=== PATIENT | female | born 1950 ===

== ENCOUNTER 2020-09-17 09:16 | Emergency (ER) | payer MEDICARE, SELFPAY ==
[2020-09-17 09:24] VITALS: BP 157/83; PULSE 84; RESP 20; TEMP 37.2; O2SAT 96; BMI 26.9
--- NOTE | 2020-09-17 10:06 | US_ITS ---
EXAMINATION: US VENOUS ULTRASOUND WITH DOPPLER LOWER EXTREMITY, RIGHT CLINICAL INFORMATION: Leg pain and swelling COMPARISON: None TECHNIQUE: Ultrasound of the deep veins is performed from the hip to the calf with compression sonography and color and pulse Doppler assessment. Spectral analysis with color-flow imaging is performed. FINDINGS: The right common femoral, greater saphenous proximal is occluded with thrombus with no flow seen. Partial thrombus is visualized in and superficial femoral vein has some flow proximal, mid and distal superficial femoral vein with limited flow. The probably vein there is normal flow seen. The right posterior tibial vein is patent. No Valencia's cyst seen. US/US venous duplex LE RT IMPRESSION: Positive DVT demonstrated in the right lower extremity.
--- NOTE | 2020-09-17 10:07 | XR_ITS ---
EXAMINATION: RIGHT ANKLE AND RIGHT FOOT CLINICAL INFORMATION: Pain. COMPARISON: None TECHNIQUE: 3 views right foot and 2 views right ankle. FINDINGS: RIGHT FOOT: There is mild osteopenia. No visible fracture, dislocation seen. The joint space is maintained normal. No bony erosive changes. RIGHT ANKLE: There is a small calcaneal heel and retrocalcaneal enthesophytes with soft tissue calcification along the posterior achilles tendon. The ankle mortise and subtalar joints are normal. There is mild osteopenia. XR/XR ankle RT min 3V IMPRESSION: Diffuse osteopenia. No visible acute fracture, dislocation or subluxation seen in right ankle or right foot. Small calcaneal heel and retrocalcaneal enthesophytes.
--- NOTE | 2020-09-17 10:07 | XR_ITS ---
EXAMINATION: RIGHT ANKLE AND RIGHT FOOT CLINICAL INFORMATION: Pain. COMPARISON: None TECHNIQUE: 3 views right foot and 2 views right ankle. FINDINGS: RIGHT FOOT: There is mild osteopenia. No visible fracture, dislocation seen. The joint space is maintained normal. No bony erosive changes. RIGHT ANKLE: There is a small calcaneal heel and retrocalcaneal enthesophytes with soft tissue calcification along the posterior achilles tendon. The ankle mortise and subtalar joints are normal. There is mild osteopenia. XR/XR foot RT min 3V IMPRESSION: Diffuse osteopenia. No visible acute fracture, dislocation or subluxation seen in right ankle or right foot. Small calcaneal heel and retrocalcaneal enthesophytes.
--- NOTE | 2020-09-17 10:31 | PC.NURSE ---
pt resting comfortably in the stretcher, pt states that on monday pt's right foot swollen and daily the swelling traveling up the leg, swelling is all the way to inner thigh area, slight redness noticed on the inner right thigh, only tender when touched, good strong pedal pulses. pt denies travel
--- NOTE | 2020-09-17 11:39 | PC.NURSE ---
ultra sound at bedside
[2020-09-17 12:30] LABS: MANUAL DIFF FLAG NO
[2020-09-17 12:33] LABS: Basophils Percent Auto 0.3 % (0-2); Eosinophils Absolute Auto 0.1 X10*3/uL (0.0-0.4); Eosinophils Percent Auto 1.2 % (0-4); Hematocrit 36.1 % (37-47); Hemoglobin 12.1 g/dl (12.0-16.0); Imm Gran Abs Auto 0.05 X10*3/uL (0.00-0.03); Imm Gran Pct Auto 0.5 % (0.0-0.4); Lymphocytes Absolute Auto 2.1 X10*3/uL (1.2-4.9); Lymphocytes Percent Auto 20.1 % (20-40); Mean Corpuscular HGB Conc 33.5 g/dl (31.0-35.0); Mean Corpuscular Hemoglobin 30.6 pg (27.0-33.0); Mean Corpuscular Volume 91.4 fL (80-98); Monocytes Absolute Auto 0.8 X10*3/uL (0.1-1.2); Monocytes Percent Auto 7.2 % (2-11); Neutrophils Absolute Auto 7.5 X10*3/uL (2.0-8.3); Neutrophils Percent Auto 70.7 % (45-73); Platelet Count 274 X10*3/uL (160-400); Red Blood Count 3.95 X10*6/uL (4.20-5.50); Red Cell Distribution Width 11.5 % (11.0-16.0); White Blood Count 10.6 X10*3/uL (4.8-10.8)
[2020-09-17 12:37] LABS: INTERNATIONAL NORM RATIO 1.2 (0.9-1.1); Prothrombin Time 13.8 SEC (10.8-13.0)
[2020-09-17 12:39] LABS: Partial Thromboplastin Time 25.9 SEC (24.1-38.0)
[2020-09-17 12:50] VITALS: BP 150/74; PULSE 81; RESP 18; O2SAT 98
[2020-09-17 13:00] LABS: Anion Gap 16 (12-20); Blood Urea Nitrogen 28 mg/dL (9-16); Calcium 8.9 mg/dL (8.4-10.2); Carbon Dioxide 27 mmol/L (22-29); Chloride 102 mmol/L (96-108); Creatinine Clr Calc Pharmacy 40.5; Estimated Glomerular Filt Rate 39; Glucose Random 119 mg/dL (60-115); Potassium 3.8 mmol/l (3.3-5.1); Sodium 141 mmol/L (135-145)
[2020-09-17 13:37] VITALS: BP 142/62; PULSE 79; RESP 16; O2SAT 97
--- NOTE | 2020-09-17 13:48 | ED.LOWEXIN ---
HPI - Extremity Injury (Lower) General Chief Complaint: Extremity Injury, Lower Stated Complaint: leg swelling Time Seen by Provider: 09/17/20 10:06 History of Present Illness HPI Narrative: Patient complains of swelling that she noted in the right leg that started in the ankle the calf and now has worked its way up to its thigh, she has no pain no fever no chills no difficulty breathing no shortness of breath This is developed over the last 5 days and symptoms are mild, patient has no cancer history, medical problems are high cholesterol high blood pressure and hyperthyroid Related Data Home Medications Medication Instructions Recorded Confirmed alendronate 70 mg tablet 70 mg PO QWEEK 07/28/20 07/28/20 atorvastatin 20 mg tablet 20 mg PO DAILY 07/28/20 07/28/20 ivgkxaaltc-hpyqbhphkmdyj-cjklnzhk 1 tab PO Q6H PRN 07/28/20 07/28/20 50 mg-325 mg-40 mg tablet captopril 25 mg tablet 25 mg PO TID 07/28/20 07/28/20 metoprolol tartrate 100 mg tablet 100 mg PO BID 07/28/20 07/28/20 Previous Rx's Medication Instructions Recorded meclizine 25 mg tablet 25 mg PO TID #90 tab 06/19/20 amoxicillin 875 mg-potassium 1 tab PO BID #20 tab 08/07/20 clavulanate 125 mg tablet amoxicillin 500 mg-potassium 1 tab PO BID #20 tab 08/10/20 clavulanate 125 mg tablet hydrochlorothiazide 25 mg tablet 25 mg PO DAILY #90 tab 08/17/20 apixaban [Eliquis] See Rx Instructions .ROUTE 09/17/20 .COMPLEX 30 Days #60 tab levothyroxine 125 mcg tablet 125 mcg PO DAILY 90 Days #90 tab 09/17/20 raloxifene 60 mg tablet 60 mg PO DAILY #90 tab 09/17/20 Allergies Allergy/AdvReac Type Severity Reaction Status Date / Time morphine [MORPHINE] Allergy Unknown HEART Verified 09/01/20 11:00 STOPS Review of Systems Review of Systems: Positive for right leg swelling Negatives are no fever no chills no dizziness no weakness, no headache no chest pain no shortness of breath no difficulty breathing, no back pain no numbness weakness or paresthesias no skin rash, no redness or swelling to the leg PMFSH Past Medical History Attestation statement: The following information was validated with the patient. [facility] Narrative: Positive for hypertension hyperlipidemia, and hyperthyroid Source: nursing notes reviewed Medical History (Updated 09/17/20 @ 14:09 by JACQUELYN Pantoja) Hyperlipidemia Hypertension Surgical History (System 09/01/20 @ 11:00 by Jodie Rizvi) History of arthroscopy of both knees History of knee replacement procedure of right knee History of lumpectomy of right breast History of tubal ligation Family History Family History (System 09/01/20 @ 11:00 by Jodie Rizvi) Father Past heart attack CAD (coronary artery disease) Mother Diabetes Meniere disease Social History Social History (System 09/01/20 @ 11:00 by Jodie Rizvi) Smoking Status: Never smoker Physical Exam Vital Signs: Vital Signs: Last Vital Signs Temp 98.9 F 09/17/20 09:24 Pulse 79 09/17/20 13:37 Resp 16 09/17/20 13:37 BP 142/62 H 09/17/20 13:37 Pulse Ox 97 09/17/20 13:37 Body Mass Index 26.9 General appearance is no acute distress, comfortable relaxed and cooperative Head is normocephalic it is traumatic The neck is supple The chest wall is nontender, the chest is clear to auscultation bilaterally with symmetric equal breath sounds, no pain with deep breath, heart is rate and rhythm regular no murmur Abdomen soft nontender Extremities the right leg has some soft tissue swelling to ankle lower leg and upper leg there is no redness no warmth no rash no break in the skin no tenderness no wound, the foot is neurovascular intact distal Skin no rashes Neuro no focal deficit Course Course Course Narrative: Patient remains comfortable throughout visit without any other complaints and went for ultrasound which did show a large DVT in the right leg and patient was started on Eliquis and given a coupon for the 1st 30 days, she understood all this and risks of blood thinners MDM - Extremity Injury (Lower) Lab Data Attestation: I reviewed the patient's lab results. Result diagrams: 09/17/20 12:25 09/17/20 12:25 Labs: Lab Results 09/17/20 09/17/20 09/17/20 Range/Units 12:25 12:25 12:25 WBC 10.6 (4.8-10.8) X10*3/uL RBC 3.95 L (4.20-5.50) X10*6/uL Hgb 12.1 (12.0-16.0) g/dl Hct 36.1 L (37-47) % MCV 91.4 (80-98) fL MCH 30.6 (27.0-33.0) pg MCHC 33.5 (31.0-35.0) g/dl RDW 11.5 (11.0-16.0) % Plt Count 274 (160-400) X10*3/uL MPV 10.0 (9.4-12.3) fL Immature Gran % (Auto) 0.5 H (0.0-0.4) % Neut % (Auto) 70.7 (45-73) % Lymph % (Auto) 20.1 (20-40) % [place] % (Auto) 7.2 (2-11) % Eos % (Auto) 1.2 (0-4) % Baso % (Auto) 0.3 (0-2) % Lymph # (Auto) 2.1 (1.2-4.9) X10*3/uL [place] # (Auto) 0.8 (0.1-1.2) X10*3/uL Eos # (Auto) 0.1 (0.0-0.4) X10*3/uL Baso # (Auto) 0.0 (0.0-0.2) X10*3/uL Abs Immat Gran (auto) 0.05 H (0.00-0.03) X10*3/uL Absolute Neuts (auto) 7.5 (2.0-8.3) X10*3/uL Absolute Nucleated RBC 0.000 (0.0-0.012) X10*3/uL Nucleated RBC % (auto) 0.0 (0.0-0.2) /100WBC PT 13.8 H (10.8-13.0) SEC INR 1.2 H (0.9-1.1) APTT 25.9 (24.1-38.0) SEC Sodium 141 (135-145) mmol/L Potassium 3.8 (3.3-5.1) mmol/l Chloride 102 (96-108) mmol/L Carbon Dioxide 27 (22-29) mmol/L Anion Gap 16 (12-20) BUN 28 H (9-16) mg/dL Creatinine 1.35 (0.5-1.4) mg/dL Estim Creat Clear Calc 40.5 Estimated GFR 39 Random Glucose 119 H (60-115) mg/dL Calcium 8.9 (8.4-10.2) mg/dL Imaging Data Venous US: Radiologist's impression: TECHNIQUE: Ultrasound of the deep veins is performed from the hip to the calf with compression sonography and color and pulse Doppler assessment. Spectral analysis with color-flow imaging is performed. FINDINGS: The right common femoral, greater saphenous proximal is occluded with thrombus with no flow seen. Partial thrombus is visualized in and superficial femoral vein has some flow proximal, mid and distal superficial femoral vein with limited flow. The probably vein there is normal flow seen. The right posterior tibial vein is patent. No Valencia's cyst seen. US/US venous duplex LE RT IMPRESSION: Positive DVT demonstrated in the right lower extremity. Dictated By:NANY TURCIOS MDSigned By:<Electronically signed by NANY TURCIOS MD in Discharge Plan Discharge Clinical Impression: DVT (deep venous thrombosis) Qualifiers: DVT location: lower extremity Affected thrombotic vein of extremity: unspecified lower extremity proximal vein Chronicity: acute Laterality: right Qualified Code(s): I82.4Y1 - Acute embolism and thrombosis of unspecified deep veins of right proximal lower extremity Patient Disposition: Home, Self-Care Additional Instructions: Use the coupon to fill Eliquis blood thinner at the pharmacy, you will need a 2nd dose today Follow with primary doctor within 1 week Return to ER any time for difficulty breathing, shortness of breath, chest pain, bleeding or bruising, or any worse condition or any concerns Prescriptions: New Eliquis 5 mg tablet See Rx Instructions .ROUTE .COMPLEX 30 Days Qty: 60 RF: 0 No Action meclizine 25 mg tablet 25 mg PO TID Qty: 90 RF: 8 amoxicillin-pot clavulanate 875-125 mg tablet 1 tab PO BID Qty: 20 RF: 0 amoxicillin-pot clavulanate [Augmentin] 500-125 mg tablet 1 tab PO BID Qty: 20 RF: 0 hydrochlorothiazide 25 mg tablet 25 mg PO DAILY Qty: 90 RF: 8 raloxifene 60 mg tablet 60 mg PO DAILY Qty: 90 RF: 8 levothyroxine 125 mcg tablet 125 mcg PO DAILY 90 Days Qty: 90 RF: 8 atorvastatin 20 mg tablet 20 mg PO DAILY RF: 0 metoprolol tartrate 100 mg tablet 100 mg PO BID RF: 0 captopril 25 mg tablet 25 mg PO TID RF: 0 alendronate 70 mg tablet 70 mg PO QWEEK RF: 0 slhxtpwale-ekovmyggbvlbz-obnn 50-325-40 mg tablet 1 tab PO Q6H PRNRF: 0 Interventions: ED Discharge Assessment Last Done: 09/17/20 14:28 Discharge Date/Time: 09/17/20 14:28
[2020-09-17] MEDS: Apixaban 5 MG TABLET PO ×2 (14:08)
== END 2020-09-17 14:28 | disposition home or self-care (01) ==
PROVIDERS: Physician Assistant Medical; Emergency Provider Emergency Medicine Emergency Medical Services; PCP Internal Medicine
DX: I82.4Y1 Acute embolism and thrombosis of unspecified deep veins of right proximal lower extremity (principal); R60.0 Localized edema; I10 Essential (primary) hypertension; Z79.899 Other long term (current) drug therapy
CPT/HCPCS: 36415; 73610; 73630; 80048; 85025; 85610; 85730; 93971; 99284

== ENCOUNTER 2020-11-09 07:39 | Outpatient (REF) | payer MEDICARE, SELFPAY ==
--- NOTE | ~2020-11-09 | MM_ITS ---
EXAMINATION: MM SCREENING DIGITAL BREAST TOMOSYNTHESIS, BILATERAL CLINICAL INFORMATION: Screening. Asymptomatic. The lifetime risk of breast cancer based on the Tyrer-Cuzick Model is 4%. COMPARISON: Mammography: 11/04/2019, 04/30/2019, 10/25/2018, 10/18/2017 TECHNIQUE: Digital breast tomosynthesis is performed in both the craniocaudal and mediolateral oblique views along with computer-aided detection (CAD). Synthesized 2D images are generated from the tomosynthesis. FINDINGS: There are scattered areas of fibroglandular density (ACR BI-RADS breast composition Category b). There are no significant masses, abnormal calcifications, or other abnormalities. There is stable smooth nodule central upper outer right breast mid depth and smaller nodule central outer left breast similar to prior exams. Remote trauma related regional benign round and rim calcifications posterior upper outer right breast are again noted. No significant findings. MM/MM tomosynthesis screening BI IMPRESSION: No mammographic evidence of malignancy. ASSESSMENT: BI-RADS 2: Benign RECOMMENDATION: Routine annual mammography screening. This patient's information was entered into a reminder system with a target due date for their next mammogram.
== END 2020-11-09 07:40 | disposition home or self-care (01) ==
LOC: HO.MAMMO 07:39
PROVIDERS: Visit Provider Internal Medicine
DX: Z12.31 Encounter for screening mammogram for malignant neoplasm of breast (principal)
CPT/HCPCS: 77063; 77067

== ENCOUNTER 2021-01-19 14:45 | Emergency (ER) | payer MEDICARE, SELFPAY ==
--- NOTE | ~2021-01-19 | CT_ITS ---
EXAMINATION: CT ABDOMEN AND PELVIS WITHOUT CONTRAST CLINICAL INFORMATION: Left-sided abdominal pain. Question diverticulosis. COMPARISON: None TECHNIQUE: Multidetector volumetric imaging was performed from the superior aspect of the liver through the pubic symphysis. Sagittal and coronal reformatted images were obtained on the technologist's workstation. This CT examination was performed using dose optimization techniques as appropriate, variously including the following: *Automated exposure control *Adjustment of mA and/or kV according to patient size (this includes techniques or standardized protocols for targeted exams where dose is matched to indication/reason for exam; i.e. extremities or head) *Use of iterative reconstruction technique DLP: 723 mGy-cm FINDINGS: Visualized lung bases are well aerated. The liver is normal in size but demonstrates diffusely decreased attenuation. The gallbladder is normal in appearance. Mild fatty atrophy of the pancreas. The spleen and adrenal glands are unremarkable. The right kidney is normal in size. No right-sided renal calculi or right-sided hydronephrosis. The left kidney is severely atrophic. The stomach is decompressed. Normal caliber loops of small and large bowel. Moderate diffuse colonic diverticulosis. There is a short segment area of pericolonic stranding adjacent to the distal transverse colon which is most suggestive of active diverticulitis. There is no complicating abscess. Nonaneurysmal abdominal aorta. No retroperitoneal lymphadenopathy. The bladder is normal in appearance. Unremarkable CT appearance of the uterus. No inguinal lymphadenopathy. Diffuse osteopenia. Mild degenerative changes of the spine. Severe degenerative changes of the right hip. CT/CT abdomen pelvis wo con IMPRESSION: 1. Mild colonic diverticulitis of the distal transverse colon. No complicating abscess. 2. Diffusely decreased liver attenuation suggesting hepatic steatosis. Correlation with liver enzymes recommended. 3. Severely atrophic left kidney. 4. Severe degenerative changes of the right hip.
[2021-01-19 15:28] VITALS: BP 157/85; PULSE 87; RESP 16; TEMP 37.7; O2SAT 96; BMI 27.6
[2021-01-19 16:12] LABS: MANUAL DIFF FLAG NO
[2021-01-19 16:13] LABS: Basophils Percent Auto 0.1 % (0-2); Eosinophils Absolute Auto 0.1 X10*3/uL (0.0-0.4); Eosinophils Percent Auto 1.2 % (0-4); Hematocrit 38.2 % (37-47); Imm Gran Abs Auto 0.02 X10*3/uL (0.00-0.03); Imm Gran Pct Auto 0.2 % (0.0-0.4); Lymphocytes Absolute Auto 1.1 X10*3/uL (1.2-4.9); Lymphocytes Percent Auto 11.9 % (20-40); Mean Corpuscular Hemoglobin 31.3 pg (27.0-33.0); Mean Corpuscular Volume 91.8 fL (80-98); Mean Platelet Volume 10.3 fL (9.4-12.3); Monocytes Absolute Auto 0.7 X10*3/uL (0.1-1.2); Monocytes Percent Auto 7.4 % (2-11); Neutrophils Percent Auto 79.2 % (45-73); Platelet Count 213 X10*3/uL (160-400); Red Blood Count 4.16 X10*6/uL (4.20-5.50); White Blood Count 8.9 X10*3/uL (4.8-10.8)
[2021-01-19 16:34] LABS: Anion Gap 15 (12-20); Blood Urea Nitrogen 26 mg/dL (9-16); Calcium 9.3 mg/dL (8.4-10.2); Carbon Dioxide 25 mmol/L (22-29); Chloride 102 mmol/L (96-108); Creatinine Clr Calc Pharmacy 41.1; Estimated Glomerular Filt Rate 40; Glucose Random 122 mg/dL (60-115); Potassium 4.6 mmol/L (3.3-5.1); Sodium 137 mmol/L (135-145)
--- NOTE | 2021-01-19 17:36 | ED.ABDPAIN ---
HPI - Abdominal Pain General Chief Complaint: Abdominal Pain Stated Complaint: flank pain Time Seen by Provider: 01/19/21 17:35 Source: patient Mode of arrival: ambulatory Limitations: no limitations History of Present Illness HPI narrative: Patient with no significant abdominal complaints in the past complaining of left lower abdominal pain for last 4 days getting worse does not feel hungry did not eat for last 12 hours nauseated no blood in the stool no fever no chills no abdominal distension feels constipated Related Data Home Medications Medication Instructions Recorded Confirmed bjvudepxas-npmclppvlfuxj-tkclvstz 1 tab PO Q6H PRN 07/28/20 07/28/20 50 mg-325 mg-40 mg tablet captopril 25 mg tablet 25 mg PO TID 07/28/20 07/28/20 metoprolol tartrate 100 mg tablet 100 mg PO BID 07/28/20 07/28/20 Previous Rx's Medication Instructions Recorded meclizine 25 mg tablet 25 mg PO TID #90 tab 06/19/20 amoxicillin 875 mg-potassium 1 tab PO BID #20 tab 08/07/20 clavulanate 125 mg tablet amoxicillin 500 mg-potassium 1 tab PO BID #20 tab 08/10/20 clavulanate 125 mg tablet hydrochlorothiazide 25 mg tablet 25 mg PO DAILY #90 tab 08/17/20 levothyroxine 125 mcg tablet 125 mcg PO .COMPLEX #135 cap 09/20/20 raloxifene 60 mg tablet 60 mg PO DAILY #90 cap 09/20/20 apixaban 5 mg tablet 5 mg PO DAILY 30 Days #30 tab 10/19/20 atorvastatin 20 mg tablet 20 mg PO DAILY #90 cap 10/31/20 alendronate 70 mg tablet 70 mg PO QWEEK #14 tab 11/25/20 amoxicillin-pot clavulanate 1 tab PO BID #20 tab 01/19/21 [Augmentin] dicyclomine 20 mg PO QID PRN #20 tab 01/19/21 Allergies Allergy/AdvReac Type Severity Reaction Status Date / Time morphine [MORPHINE] Allergy Unknown HEART Verified 10/21/20 09:36 STOPS Review of Systems Review of Systems Constitutional : No Weight loss, No Fever, No Chills ENT/Mouth : No sore throat, No Rhinorrhea Eyes: No Eye Pain, No Swelling Cardiovascular : No Chest Pain, no palpitations Respiratory : No Cough, No Sputum, no shortness of breath Gastrointestinal : + Nausea, No Vomiting, No Diarrhea, ++ abdominal Pain, no black stools Genitourinary : No Dysuria, No Urinary Frequency Musculoskeletal : No joint pain, No Myalgias, No Joint Swelling Skin : No Skin Lesions, No rash Neuro : No Weakness, No Numbness, No Dizziness, No Headache Psych : No Anxiety/Panic, No Depression Heme/Lymph: No Bruising, No Lymphadenopathy Endocrine : No Polyuria, No Polydipsia All other systems reviewed and are negative Physical Exam Vital Signs: Vital Signs: Last Vital Signs Temp 99.3 F 01/19/21 22:08 Pulse 76 01/19/21 22:08 Resp 16 01/19/21 22:08 BP 148/40 H 01/19/21 22:08 Pulse Ox 95 01/19/21 22:08 Body Mass Index 27.6 Appearance: Alert. Oriented X3. No acute distress. Eyes: PERRLA, No Nystagmus ENT: Pharynx normal. Oral Mucosa moist Neck: Normal inspection. Neck supple. CVS: Normal heart rate and rhythm. Pulses normal. Respiratory: No respiratory distress. Equal air entry bilateral, no wheezing/rales/rhonchi Abdomen: Soft and tenderness in the left lower quadrant with guarding no rebound tenderness Bowel sounds are present, no mass palpable, no CVA tenderness Skin: Skin warm and dry. Normal skin color. Normal skin turgor. Extremities: No lower extremity edema. No calf tenderness Neuro: Oriented X 3. No motor deficit. No sensory deficit.No cerebellar signs , cranial nerves II-XII intact MDM - Abdominal Pain MDM Narrative Medical decision making narrative: Patient with left lower quadrant tenderness normal WBC count CT scan showed small part of distal transverse colon with diverticulitis no fluid collection. Patient cannot take any pain medication and received IV Zosyn in the ER will discharge patient home on Augmentin advised to come back to the ER if pain gets worse fever nausea vomiting Medical Records Attestation: I reviewed the patient's medical records. Lab Data Attestation: I reviewed the patient's lab results. Result diagrams: 01/19/21 16:06 01/19/21 16:06 Labs: Lab Results 01/19/21 01/19/21 Range/Units 16:06 16:06 WBC 8.9 (4.8-10.8) X10*3/uL RBC 4.16 L (4.20-5.50) X10*6/uL Hgb 13.0 (12.0-16.0) g/dl Hct 38.2 (37-47) % MCV 91.8 (80-98) fL MCH 31.3 (27.0-33.0) pg MCHC 34.0 (31.0-35.0) g/dl RDW 12.0 (11.0-16.0) % Plt Count 213 (160-400) X10*3/uL MPV 10.3 (9.4-12.3) fL Immature Gran % (Auto) 0.2 (0.0-0.4) % Neut % (Auto) 79.2 H (45-73) % Lymph % (Auto) 11.9 L (20-40) % [place] % (Auto) 7.4 (2-11) % Eos % (Auto) 1.2 (0-4) % Baso % (Auto) 0.1 (0-2) % Lymph # (Auto) 1.1 L (1.2-4.9) X10*3/uL [place] # (Auto) 0.7 (0.1-1.2) X10*3/uL Eos # (Auto) 0.1 (0.0-0.4) X10*3/uL Baso # (Auto) 0.0 (0.0-0.2) X10*3/uL Abs Immat Gran (auto) 0.02 (0.00-0.03) X10*3/uL Absolute Neuts (auto) 7.0 (2.0-8.3) X10*3/uL Absolute Nucleated RBC 0.000 (0.0-0.012) X10*3/uL Nucleated RBC % (auto) 0.0 (0.0-0.2) /100WBC Sodium 137 (135-145) mmol/L Potassium 4.6 (3.3-5.1) mmol/L Chloride 102 (96-108) mmol/L Carbon Dioxide 25 (22-29) mmol/L Anion Gap 15 (12-20) BUN 26 H (9-16) mg/dL Creatinine 1.30 (0.5-1.4) mg/dL Estim Creat Clear Calc 41.1 Estimated GFR 40 Random Glucose 122 H (60-115) mg/dL Calcium 9.3 (8.4-10.2) mg/dL Imaging Data CT scan - abdomen: Radiologist's impression: CT/CT abdomen pelvis wo con IMPRESSION: 1. Mild colonic diverticulitis of the distal transverse colon. No complicating abscess. 2. Diffusely decreased liver attenuation suggesting hepatic steatosis. Correlation with liver enzymes recommended. 3. Severely atrophic left kidney. 4. Severe degenerative changes of the right hip. Discharge Plan Discharge Clinical Impression: Diverticulitis Patient Disposition: Home, Self-Care Instructions: Diverticulitis (ED) Additional Instructions: Clear liquids advanced as advised Take antibiotic as prescribed Tylenol for pain Report to ER if high fever increased abdominal pain, vomiting Prescriptions: New amoxicillin-pot clavulanate [Augmentin] 875-125 mg tablet 1 tab PO BID Qty: 20 RF: 0 dicyclomine 20 mg tablet 20 mg PO QID PRN (Reason: abdominal pain) Qty: 20 RF: 0 No Action meclizine 25 mg tablet 25 mg PO TID Qty: 90 RF: 8 amoxicillin-pot clavulanate 875-125 mg tablet 1 tab PO BID Qty: 20 RF: 0 amoxicillin-pot clavulanate [Augmentin] 500-125 mg tablet 1 tab PO BID Qty: 20 RF: 0 hydrochlorothiazide 25 mg tablet 25 mg PO DAILY Qty: 90 RF: 8 levothyroxine 125 mcg tablet 125 mcg PO .COMPLEX Qty: 135 RF: 1 raloxifene 60 mg tablet 60 mg PO DAILY Qty: 90 RF: 1 Eliquis 5 mg tablet 5 mg PO DAILY 30 Days Qty: 30 RF: 8 atorvastatin 20 mg tablet 20 mg PO DAILY Qty: 90 RF: 3 alendronate 70 mg tablet 70 mg PO QWEEK Qty: 14 RF: 8 metoprolol tartrate 100 mg tablet 100 mg PO BID RF: 0 captopril 25 mg tablet 25 mg PO TID RF: 0 dngunygqhl-meqsbtzecqeyq-nprt 50-325-40 mg tablet 1 tab PO Q6H PRNRF: 0 Interventions: ED Discharge Assessment Last Done: 01/19/21 22:36 Discharge Date/Time: 01/19/21 22:36 [facility] Past Medical History Medical History Hyperlipidemia Hypertension Surgical History History of arthroscopy of both knees History of knee replacement procedure of right knee History of lumpectomy of right breast History of tubal ligation Family History Family History Father Past heart attack CAD (coronary artery disease) Mother Diabetes Meniere disease Son No problems noted. Social History Social History Alcohol intake: never Smoking Status: Never smoker Advance Directives: No Advance Directives Information Provided: No
[2021-01-19 17:51] VITALS: BP 143/65; PULSE 74; RESP 18; TEMP 37.9; O2SAT 100
[2021-01-19] MEDS: 0.9 % Sodium Chloride 1,000 ML 999 ML IVCONT (18:54)
[2021-01-19] MEDS: Acetaminophen 325 MG TABLET 650 MG PO (19:30)
[2021-01-19 19:32] VITALS: BP 156/59; PULSE 82; RESP 18
[2021-01-19 20:32] VITALS: BP 160/64; PULSE 89; RESP 16; TEMP 37.3; O2SAT 97
[2021-01-19 21:53] VITALS: BP 153/71; PULSE 69; RESP 16; TEMP 37.1
[2021-01-19] MEDS: Piperacillin Sodium/Tazobactam 3.375 GM in 0.9 % Sodium Chloride 50 ML IV (21:56)
[2021-01-19 22:08] VITALS: BP 148/40; PULSE 76; RESP 16; TEMP 37.4; O2SAT 95
== END 2021-01-19 22:36 | disposition home or self-care (01) ==
PROVIDERS: Emergency Provider Internal Medicine; PCP Internal Medicine
DX: K57.92 Diverticulitis of intestine, part unspecified, without perforation or abscess without bleeding (principal); R10.32 Left lower quadrant pain; I10 Essential (primary) hypertension; E78.5 Hyperlipidemia, unspecified; Z86.718 Personal history of other venous thrombosis and embolism
CPT/HCPCS: 36415; 74176; 80048; 85025; 96361; 96365; 96375; 99284; J2543

== ENCOUNTER → 2021-02-09 08:57 | Outpatient (BNVA) | payer MEDICARE, SELFPAY | PROVIDERS: PCP Internal Medicine; Referring Provider Internal Medicine; Visit Provider Physician Assistant ==

== ENCOUNTER 2021-02-09 09:54 | Outpatient (REF) | payer MEDICARE, SELFPAY ==
[2021-02-09 13:49] LABS: MANUAL DIFF FLAG NO
[2021-02-09 14:11] LABS: Basophils Percent Auto 0.5 % (0-2); Eosinophils Absolute Auto 0.2 X10*3/uL (0.0-0.4); Hematocrit 39.4 % (37-47); Hemoglobin 12.9 g/dl (12.0-16.0); Imm Gran Abs Auto 0.03 X10*3/uL (0.00-0.03); Imm Gran Pct Auto 0.4 % (0.0-0.4); Lymphocytes Percent Auto 24.3 % (20-40); Mean Corpuscular HGB Conc 32.7 g/dl (31.0-35.0); Mean Corpuscular Hemoglobin 30.4 pg (27.0-33.0); Mean Corpuscular Volume 92.7 fL (80-98); Mean Platelet Volume 11.7 fL (9.4-12.3); Monocytes Absolute Auto 0.5 X10*3/uL (0.1-1.2); Monocytes Percent Auto 6.3 % (2-11); Neutrophils Absolute Auto 5.6 X10*3/uL (2.0-8.3); Neutrophils Percent Auto 66.5 % (45-73); Platelet Count 287 X10*3/uL (160-400); Red Blood Count 4.25 X10*6/uL (4.20-5.50); White Blood Count 8.4 X10*3/uL (4.8-10.8)
[2021-02-09 14:20] LABS: Alanine Aminotransferase 22 U/L (0-31); Albumin Level 4.1 g/dL (3.5-5.0); Alkaline Phosphatase 60 U/L (39-117); Anion Gap 16 (12-20); Aspartate Amino Transferase 24 U/L (5-31); Bilirubin Total 0.5 mg/dL (0.0-1.0); Blood Urea Nitrogen 25 mg/dL (9-16); Calcium 10.2 mg/dL (8.4-10.2); Carbon Dioxide 28 mmol/L (22-29); Chloride 105 mmol/L (96-108); Cholesterol 164 mg/dL; Estimated Glomerular Filt Rate 38; Glucose Random 121 mg/dL (60-115); HDL Cholesterol 32 mg/dL; LDL Cholesterol Calculated 89 mg/dl; Potassium 4.9 mmol/L (3.3-5.1); Sodium 144 mmol/L (135-145); Total Protein 7.4 g/dL (6.5-8.0); Triglycerides 215 mg/dL
[2021-02-09 14:25] LABS: Estimated Average Glucose 126 mg/dL
[2021-02-10 07:35] LABS: HBS Num1 0.43 mIU/mL (0-7.99); Hepatitis A Antibody IgM 0.15 Index (0-0.79); Hepatitis B Core Antibody Nonreactive (Nonreactive); ~Hepatitis A Antibody IgM Nonreactive (Nonreactive); ~Hepatitis B Surface Antibody NONREACTIVE (Nonreactive); ~Hepatitis C Antibody Nonreactive (Nonreactive)
[2021-02-10 07:46] LABS: HBsAGNum1 0.26 S/CO (0.00-0.99); Hepatitis B Surface Antigen Negative (Negative)
== END 2021-02-09 09:55 | disposition home or self-care (01) ==
LOC: HO.WFDLDS 09:54
PROVIDERS: Visit Provider Physician Assistant
DX: R10.11 Right upper quadrant pain (principal); R74.01 Elevation of levels of liver transaminase levels; R79.89 Other specified abnormal findings of blood chemistry; K57.92 Diverticulitis of intestine, part unspecified, without perforation or abscess without bleeding; I82.409 Acute embolism and thrombosis of unspecified deep veins of unspecified lower extremity; K76.0 Fatty (change of) liver, not elsewhere classified
CPT/HCPCS: 36415; 80053; 80061; 83036; 85025; 86704; 86706; 86709; 86803; 87340; 99212

== ENCOUNTER 2021-03-24 07:18 | Day surgery (SDC) | payer MEDICARE, SELFPAY ==
[2021-03-16 13:52] VITALS: BMI 25.3
--- NOTE | 2021-03-23 10:58 | P.CONAN_ITS ---
Documented by User: Marine Marita 03/23/21 11:00 HPI - Anesthesia Eval Consult details Narrative: 70yo F for Colonoscopy Eliquis for LLE DVT 08/2020 PMFSH Active Problems Active Problems: All Active Problems (Updated 03/16/21 @ 13:58 by Nimco Troy) DVT (deep venous thrombosis) (Acute) Diverticulitis (Acute) NAFLD (nonalcoholic fatty liver disease) (Acute) Hyperlipidemia (Acute) Hypertension (Acute) Past Medical History Medical History (Updated 03/16/21 @ 13:58 by Nimco Troy) COVID-19 vaccine series completed Fatty liver History of diverticulitis Hx of deep venous thrombosis Hyperlipidemia Hypertension Hypothyroidism Menieres disease On anticoagulant therapy On beta danni at home Osteoarthritis Family History Family History Father Past heart attack CAD (coronary artery disease) Mother Diabetes Meniere disease Son No problems noted. Surgical History Surgical History (Updated 03/16/21 @ 13:35 by Nimco Troy) History of arthroscopy of both knees History of knee replacement procedure of right knee History of lumpectomy of right breast History of tubal ligation Social History Social History Household Members: Spouse Are you a primary health care / medical job titles to a significant other at home: No Do you presently have visiting nurse or other home services: No Alcohol intake: never Patient Tobacco Use Status: Never used Tobacco Second Hand Smoke Exposure: No Use of substances other than those prescribed or required for medical reasons: No Have you been hit, kicked, punched, or otherwise hurt by someone within the past year? If so, by whom?: No Are you DNR?: No Advance Directives: No Advance Directives Information Provided: No Advance Directives on File: No Recently lost weight without trying: Yes Eating poorly because of decreased appetite: No Nutrition Risks: No Nutritional Risk Patient : No Current occupational status: retired Meds Allergies Allergy/AdvReac Type Severity Reaction Status Date / Time morphine [MORPHINE] Allergy Unknown HEART Verified 03/16/21 13:36 STOPS Home Medications Medication Instructions Recorded Confirmed Last Taken Type captopril 25 mg tablet 25 mg PO TID 07/28/20 03/16/21 Unknown History metoprolol tartrate 100 mg tablet 100 mg PO BID 07/28/20 03/16/21 Unknown History Exam Exam Date and Time: March 23, 2021 1058 Height,Weight and Vital Signs: Height 5 ft 6.5 in Weight 72.235 kg Pertinent Lab Results Pertinent Lab Results: Laboratory Tests 02/09/21 02/09/21 10:00 10:00 WBC 8.4 Hgb 12.9 Hct 39.4 Plt Count 287 D Sodium 144 Potassium 4.9 Chloride 105 Carbon Dioxide 28 BUN 25 H Creatinine 1.37 Assessment and Plan Assessment Anesthesia Assessment: Chart Reviewed Documented by User: Lizbet James 03/24/21 08:43 [facility] Past Medical History Medical History (Updated 03/16/21 @ 13:58 by Nimco Troy) COVID-19 vaccine series completed Fatty liver History of diverticulitis Hx of deep venous thrombosis Hyperlipidemia Hypertension Hypothyroidism Menieres disease On anticoagulant therapy On beta danni at home Osteoarthritis Family History Family History Father Past heart attack CAD (coronary artery disease) Mother Diabetes Meniere disease Son No problems noted. Surgical History Surgical History (Updated 03/16/21 @ 13:35 by Nimco Troy) History of arthroscopy of both knees History of knee replacement procedure of right knee History of lumpectomy of right breast History of tubal ligation Social History Social History Household Members: Spouse Are you a primary health care / medical job titles to a significant other at home: No Do you presently have visiting nurse or other home services: No Alcohol intake: never Patient Tobacco Use Status: Never used Tobacco Second Hand Smoke Exposure: No Use of substances other than those prescribed or required for medical reasons: No Have you been hit, kicked, punched, or otherwise hurt by someone within the past year? If so, by whom?: No Are you DNR?: No Advance Directives: No Advance Directives Information Provided: No Advance Directives on File: No Recently lost weight without trying: Yes Eating poorly because of decreased appetite: No Nutrition Risks: No Nutritional Risk Patient : No Current occupational status: retired Meds Allergies Allergy/AdvReac Type Severity Reaction Status Date / Time morphine [MORPHINE] Allergy Unknown HEART Verified 03/16/21 13:36 STOPS Home Medications Medication Instructions Recorded Confirmed Last Taken Type captopril 25 mg tablet 25 mg PO TID 07/28/20 03/16/21 Unknown History metoprolol tartrate 100 mg tablet 100 mg PO BID 07/28/20 03/16/21 Unknown History Exam Airway Mallampati Class: II TM Dist: >3cm Neck ROM: Full Assessment and Plan Final Anesthetic Review NPO: Yes ASA Class: III Final Preanesthetic Review: No Changes in Pt Med Stat, Meds/Allgs Chart Reviewed and Consent Obtained/Reviewed Patient Risk: Intermediate Procedure Risk: Intermediate Anesthetic Plan Anesthetic Plan: MAC: Disposition: Standard PACU
--- NOTE | 2021-03-24 07:30 | MHC.SHP ---
Pre-Procedural Eval Section A Date of Service: 03/24/21 Section B Chief Complaint: diverticulitis Relevant Family History (Specify if Yes): No Relevant Social History: None Present Medications: see Short Stay Collaborative assessment Medical History: Significant History (atty liver History of diverticulitis Hx of deep venous thrombosis Hyperlipidemia Hypertension Hypothyroidism Menieres disease On anticoagulant therapy On beta danni at home Osteoarthritis) History of Previous Operations: Relevant previous surgery/procedure and date(s) (istory of arthroscopy of both knees History of knee replacement procedure of right knee History of lumpectomy of right breast History of tubal ligation) Allergies: Allergies Allergy/AdvReac Type Severity Reaction Status Date / Time morphine [MORPHINE] Allergy Unknown HEART Verified 03/16/21 13:36 STOPS Review of Systems Review of Systems Comment: Negative Exam Exam Comment: EXAM: GENERAL: The patient is well developed and nontoxic. VITAL SIGNS:see workflow HEENT: Nonicteric sclerae, PERRLA, EOMI. Oropharynx clear. Moist mucous membranes. Conjunctivae appear well perfused. No thyroid mass. CHEST: Chest wall is nontender. HEART: Regular rate and rhythm without murmurs. LUNGS: Clear to auscultation bilaterally. ABDOMEN: Soft, positive bowel sounds, nontender, no organomegaly.no flank tenderness SKIN: No rash, no excessive bruising, petechiae, or purpura. NEUROLOGIC: Cranial nerves II-XII intact without motor/sensory deficit. Plan I have reviewed the history and physical and performed a pertinent physical examination on my patient. No changes have occurred unless specified.
[2021-03-24 07:52] VITALS: BP 165/67; PULSE 69; RESP 17; TEMP 37.2; O2SAT 98; BMI 25.2
[2021-03-24] MEDS: Lactated Ringers 1,000 ML 100 ML IVCONT (08:12)
--- NOTE | 2021-03-24 09:22 | P.BOP_ITS ---
Brief Operative Note Date of Service: 03/24/21 Pre-op diagnosis: hx of diverticulitis, first time screening colonoscopy Post-op diagnosis: same Procedure: see op note Surgeon: Diony Zarate MD Anesthesia: MAC Was an Looper Operator used for this Procedure?: No Estimated blood loss (mL): 0 Condition: stable Disposition: PACU
--- NOTE | 2021-03-24 09:23 | W.PM.OPN ---
Operative Note Operative Note Date of Service: 03/24/21 Narrative: Operative Information Procedure Description: Colonoscopy COLONOSCOPY Instrument: Olympus variable stiffness pediatric scope 190L Colonoscopy Monitoring: Vital signs and clinical assessment, continuous EKG monitoring, Pulse oximetry, Carbon Dioxide monitoring and blood pressure monitoring were done throughout the procedure. Colon withdrawal time was 22 minutes. Procedure: The patient was placed in the left lateral decubitis position and pre-procedure medications were administered. After a digital rectal examination of the ano-rectum, the video colonoscope was inserted into the rectum and advanced through the colon to the cecum/TI. The colonoscope was slowly withdrawn in a retrograde panoramic fashion and the colon mucosa was carefully examined including a retroflexed view of the rectum. Findings and interventions are described below. Procedure Difficulty: moderate due to looping Findings: Terminal Ileum-normal Cecum:5-7 mm sessile polyp removed with forceps Ascending Colon: 5-7 mm sessile polyp removed with forceps Hepatic flexure- 12 mm flat polyp lifted with ORISE and then removed with stiff snare. Defect with oozing so one clip applied with hemostasis. Transverse Colon -normal Descending Colon:normal Sigmoid Colon: severe diverticulosis with wide mouthed tics Rectum: Retroflexion with medium sized internal hemorrhoids, grade I, 6-7 mm sessile polyp removed with forceps Anorectum - normal Colon preparation: [place] Bowel Preparation Scale Right colon; 2 (borderline 2) Transverse colon: 2 Left colon; 2 (0 = Unprepared colon segment with mucosa not seen due to solid stool that cannot be cleared. 1 = Portion of mucosa of the colon segment seen, but other areas of the colon segment not well seen due to staining, residual stool and/or opaque liquid. 2 = Minor amount of residual staining, small fragments of stool and/or opaque liquid, but mucosa of colon segment seen well. 3 = Entire mucosa of colon segment seen well with no residual staining, small fragments of stool or opaque liquid) Impression and Post Procedure Diagnosis: polyps internal hemorrhoids diverticular disease Plan: High fiber diet leaflet Avoid straining at stool, epsom salts and sitz bath, anusol supps or cream Repeat Colonoscopy in 3 years due to polyps and right sided prep or earlier if clinically indicated Above findings were reviewed with the patient and relevant handouts were provided if indicated.
[2021-03-24 09:24] VITALS: BP 141/55; PULSE 71; RESP 16; TEMP 36.4; O2SAT 97
[2021-03-24 09:39] VITALS: BP 150/63; PULSE 63; RESP 17; TEMP 36.4; O2SAT 100
== END 2021-03-24 10:25 | disposition home or self-care (01) ==
PROVIDERS: PCP Internal Medicine; Visit Provider Internal Medicine Gastroenterology
PROC: 0DJD8ZZ Inspection of Lower Intestinal Tract, Via Natural or Artificial Opening Endoscopic (ICD-10-PCS; CPT 45378; principal; 2021-03-24 08:30)
DX: Z12.11 Encounter for screening for malignant neoplasm of colon (principal); Z87.19 Personal history of other diseases of the digestive system; D12.0 Benign neoplasm of cecum; D12.3 Benign neoplasm of transverse colon; K63.5 Polyp of colon; K62.1 Rectal polyp; K57.30 Diverticulosis of large intestine without perforation or abscess without bleeding; K64.0 First degree hemorrhoids; I10 Essential (primary) hypertension; E03.9 Hypothyroidism, unspecified; E78.5 Hyperlipidemia, unspecified; Z86.718 Personal history of other venous thrombosis and embolism; Z79.01 Long term (current) use of anticoagulants; Z79.899 Other long term (current) drug therapy; Z88.8 Allergy status to other drugs, medicaments and biological substances
CPT/HCPCS: 45385; 45380; 45381; 88305

== ENCOUNTER → 2021-04-21 11:31 | Outpatient (BNVA) | payer MEDICARE, SELFPAY | PROVIDERS: PCP Internal Medicine; Visit Provider Physician Assistant | DX: Z13.89 Encounter for screening for other disorder (principal) | CPT/HCPCS: Q3014 ==

== ENCOUNTER 2021-08-26 07:55 | Outpatient (REF) | payer MEDICARE, SELFPAY ==
[2021-08-26 13:25] LABS: MANUAL DIFF FLAG NO
[2021-08-26 13:37] LABS: Basophils Percent Auto 0.4 % (0-2); Eosinophils Absolute Auto 0.3 X10*3/uL (0.0-0.4); Eosinophils Percent Auto 3.5 % (0-4); Hematocrit 42.5 % (37.0-47.0); Hemoglobin 13.8 g/dl (12.0-16.0); Imm Gran Abs Auto 0.04 X10*3/uL (0.00-0.03); Imm Gran Pct Auto 0.6 % (0.0-0.4); Lymphocytes Absolute Auto 2.4 X10*3/uL (1.2-4.9); Lymphocytes Percent Auto 33.1 % (20-40); Mean Corpuscular HGB Conc 32.5 g/dl (31.0-35.0); Mean Corpuscular Hemoglobin 30.9 pg (27.0-33.0); Mean Corpuscular Volume 95.3 fL (80.0-98.0); Mean Platelet Volume 11.3 fL (9.4-12.3); Monocytes Absolute Auto 0.5 X10*3/uL (0.1-1.2); Monocytes Percent Auto 6.5 % (2-11); Neutrophils Percent Auto 55.9 % (45-73); Platelet Count 243 X10*3/uL (160-400); Red Blood Count 4.46 X10*6/uL (4.20-5.50); Red Cell Distribution Width 12.3 % (11.0-16.0); White Blood Count 7.2 X10*3/uL (4.8-10.8)
[2021-08-26 14:04] LABS: Alanine Aminotransferase 14 U/L (0-31); Albumin Level 4.1 g/dL (3.5-5.0); Alkaline Phosphatase 55 U/L (39-117); Anion Gap 13 (12-20); Aspartate Amino Transferase 16 U/L (5-31); Bilirubin Total 0.4 mg/dL (0.0-1.0); Blood Urea Nitrogen 19 mg/dL (9-16); Calcium 9.9 mg/dL (8.4-10.2); Carbon Dioxide 27 mmol/L (22-29); Chloride 104 mmol/L (96-108); Cholesterol 181 mg/dL; Estimated Glomerular Filt Rate 36; Glucose Fasting 119 mg/dL (60-99); HDL Cholesterol 40 mg/dL; LDL Cholesterol Calculated 100 mg/dl; Potassium 4.2 mmol/L (3.3-5.1); Sodium 140 mmol/L (135-145); Total Protein 7.3 g/dL (6.5-8.0); Triglycerides 208 mg/dL
== END 2021-08-26 07:56 | disposition home or self-care (01) ==
LOC: HO.10HDL 07:55
PROVIDERS: Visit Provider Internal Medicine
DX: Z00.00 Encounter for general adult medical examination without abnormal findings (principal); E03.9 Hypothyroidism, unspecified; E11.9 Type 2 diabetes mellitus without complications
CPT/HCPCS: 36415; 80053; 80061; 84443; 85025

== ENCOUNTER 2021-11-11 07:48 | Outpatient (REF) | payer MEDICARE, SELFPAY ==
--- NOTE | ~2021-11-11 | MM_ITS ---
EXAMINATION: MM SCREENING DIGITAL BREAST TOMOSYNTHESIS, BILATERAL CLINICAL INFORMATION: Screening. Asymptomatic. The lifetime risk of breast cancer based on the Tyrer-Cuzick Model is 4%. COMPARISON: Mammography: 11/09/2020, 11/04/2019, 04/30/2019, 10/25/2018, 10/18/2017 TECHNIQUE: Digital breast tomosynthesis is performed in both the craniocaudal and mediolateral oblique views along with computer-aided detection (CAD). Synthesized 2D images are generated from the tomosynthesis. FINDINGS: There are scattered areas of fibroglandular density (ACR BI-RADS breast composition Category b). Parenchymal pattern is similar to prior studies. No significant mass or architectural abnormality. There are benign regional coarse calcifications again seen posterior upper outer right breast likely related to old trauma. No interval suspicious calcifications. Skin contours are smooth. No significant changes. MM/MM tomosynthesis screening BI IMPRESSION: No mammographic evidence of malignancy. ASSESSMENT: BI-RADS 2: Benign RECOMMENDATION: Routine annual mammography screening. This patient's information was entered into a reminder system with a target due date for their next mammogram.
== END 2021-11-11 07:49 | disposition home or self-care (01) ==
LOC: HO.MAMMO 07:48
PROVIDERS: PCP Internal Medicine; Visit Provider Internal Medicine
DX: Z12.31 Encounter for screening mammogram for malignant neoplasm of breast (principal)
CPT/HCPCS: 77063; 77067

== ENCOUNTER 2022-04-14 07:29 | Outpatient (REF) | payer MEDICARE, SELFPAY ==
[2022-04-14 11:19] LABS: Cholesterol 178 mg/dL; HDL Cholesterol 43 mg/dL; LDL Cholesterol Calculated 92 mg/dl; Triglycerides 216 mg/dL
[2022-04-14 11:43] LABS: Thyroid Stimulating Hormone 0.24 uIU/mL (0.32-4.0)
== END 2022-04-14 07:30 | disposition home or self-care (01) ==
LOC: HO.10HDL 07:29
PROVIDERS: Visit Provider Internal Medicine
DX: Z13.220 Encounter for screening for lipoid disorders (principal); Z13.29 Encounter for screening for other suspected endocrine disorder
CPT/HCPCS: 36415; 80061; 84443

== ENCOUNTER → 2022-04-21 11:16 | Outpatient (BNVA) | payer MEDICARE, SELFPAY | PROVIDERS: PCP Internal Medicine; Visit Provider Physician Assistant | DX: K76.0 Fatty (change of) liver, not elsewhere classified (principal) | CPT/HCPCS: Q3014 ==

== ENCOUNTER 2022-05-27 08:37 | Outpatient (REF) | payer MEDICARE, SELFPAY ==
--- NOTE | ~2022-05-27 | US_ITS ---
EXAMINATION: US ABDOMEN COMPLETE CLINICAL INFORMATION: Fatty change of liver, not elsewhere classified. COMPARISON: CT abdomen and pelvis 01/19/2021. TECHNIQUE: Real-time imaging of the abdominal viscera. FINDINGS: PANCREAS: Normal. ABDOMINAL AORTA: The proximal, mid, and distal segments are normal in caliber. INFERIOR VENA CAVA: Visualized portions are normal. LIVER: The liver is normal in size. The liver contour is normal. Liver echotexture is slightly increased probably representing fatty infiltration.. No focal hepatic lesion. There is no intrahepatic biliary duct dilatation seen. GALLBLADDER: Normal. The gallbladder is physiologically distended without evidence of stones, sludge, polyps, wall thickening or pericholecystic fluid. COMMON BILE DUCT: Normal in caliber measuring 0.41 cm in diameter. RIGHT KIDNEY: Normal. No hydronephrosis. No renal calculi or focal parenchymal lesions. The kidney measures 10.4 cm in maximum dimension. LEFT KIDNEY: Not SPLEEN: Normal. The spleen measures 8.8 cm in maximum dimension. FREE FLUID: None. US/US abdomen complete IMPRESSION: Slightly echogenic liver probably representing fatty infiltration. Left kidney not seen. Otherwise unremarkable exam.
[2022-05-27 11:48] LABS: MANUAL DIFF FLAG NO
[2022-05-27 12:01] LABS: Basophils Percent Auto 0.6 % (0-2); Eosinophils Absolute Auto 0.2 X10*3/uL (0.0-0.4); Hematocrit 40.3 % (37.0-47.0); Hemoglobin 13.4 g/dl (12.0-16.0); Imm Gran Abs Auto 0.02 X10*3/uL (0.00-0.03); Imm Gran Pct Auto 0.3 % (0.0-0.4); Lymphocytes Absolute Auto 1.5 X10*3/uL (1.2-4.9); Lymphocytes Percent Auto 22.2 % (20-40); Mean Corpuscular HGB Conc 33.3 g/dl (31.0-35.0); Mean Corpuscular Hemoglobin 30.6 pg (27.0-33.0); Mean Platelet Volume 11.3 fL (9.4-12.3); Monocytes Absolute Auto 0.6 X10*3/uL (0.1-1.2); Neutrophils Absolute Auto 4.6 x10*3/uL (2.0-8.3); Neutrophils Percent Auto 65.9 % (45-73); Platelet Count 238 X10*3/uL (160-400); Red Blood Count 4.38 X10*6/uL (4.20-5.50); Red Cell Distribution Width 11.6 % (11.0-16.0); White Blood Count 6.9 X10*3/uL (4.8-10.8)
[2022-05-27 12:50] LABS: Thyroid Stimulating Hormone 0.16 uIU/mL (0.32-4.0)
[2022-05-27 12:52] LABS: Alanine Aminotransferase 14 U/L (0-31); Alkaline Phosphatase 63 U/L (39-117); Anion Gap 19 (12-20); Aspartate Amino Transferase 19 U/L (5-31); Bilirubin Total 0.4 mg/dL (0.0-1.0); Blood Urea Nitrogen 29 mg/dL (9-16); Calcium 9.5 mg/dL (8.4-10.2); Carbon Dioxide 24 mmol/L (22-29); Chloride 103 mmol/L (96-108); Cholesterol 177 mg/dL; Estimated Glomerular Filt Rate 34; Glucose Random 104 mg/dL (60-115); HDL Cholesterol 45 mg/dL; LDL Cholesterol Calculated 105 mg/dl; Potassium 4.2 mmol/L (3.3-5.1); Sodium 142 mmol/L (135-145); Total Protein 7.1 g/dL (6.5-8.0); Triglycerides 135 mg/dL
== END 2022-05-27 08:38 | disposition home or self-care (01) ==
LOC: HO.HMGCX 08:37
PROVIDERS: Absent Provider Internal Medicine; Visit Provider Physician Assistant
DX: K76.0 Fatty (change of) liver, not elsewhere classified (principal); E78.5 Hyperlipidemia, unspecified; E03.9 Hypothyroidism, unspecified
CPT/HCPCS: 36415; 76700; 80053; 80061; 84443; 85025

== ENCOUNTER 2022-08-01 07:33 | Outpatient (REF) | payer MEDICARE, SELFPAY ==
[2022-08-01 11:40] LABS: Cholesterol 182 mg/dL; HDL Cholesterol 48 mg/dL; LDL Cholesterol Calculated 98 mg/dl; Thyroid Stimulating Hormone 5.58 uIU/mL (0.32-4.0); Triglycerides 184 mg/dL
== END 2022-08-01 07:34 | disposition home or self-care (01) ==
LOC: HO.10HDL 07:33
PROVIDERS: Visit Provider Internal Medicine
DX: Z00.00 Encounter for general adult medical examination without abnormal findings (principal)
CPT/HCPCS: 36415; 80061; 84443

== ENCOUNTER 2022-10-27 07:29 | Outpatient (REF) | payer MEDICARE, SELFPAY ==
[2022-10-27 11:18] LABS: Cholesterol 197 mg/dL; HDL Cholesterol 42 mg/dL; LDL Cholesterol Calculated 94 mg/dl; Triglycerides 308 mg/dL
[2022-10-27 11:21] LABS: Thyroid Stimulating Hormone 5.98 uIU/mL (0.32-4.0)
== END 2022-10-27 07:30 | disposition home or self-care (01) ==
LOC: HO.10HDL 07:29
PROVIDERS: Visit Provider Internal Medicine
DX: E03.9 Hypothyroidism, unspecified (principal); E78.5 Hyperlipidemia, unspecified
CPT/HCPCS: 36415; 80061; 84443

== ENCOUNTER 2022-11-17 07:48 | Outpatient (REF) | payer MEDICARE, SELFPAY ==
--- NOTE | ~2022-11-17 | MM_ITS ---
EXAMINATION: MM SCREENING DIGITAL BREAST TOMOSYNTHESIS, BILATERAL CLINICAL INFORMATION: Screening. Asymptomatic. The lifetime risk of breast cancer based on the Tyrer-Cuzick Model is 3.0%. COMPARISON: Mammography: November 11, 2021 and studies dating back to October 18, 2017 TECHNIQUE: Digital breast tomosynthesis is performed in both the craniocaudal and mediolateral oblique views along with computer-aided detection (CAD). Synthesized 2D images are generated from the tomosynthesis. FINDINGS: The breasts are almost entirely fatty (ACR BI-RADS breast composition Category a). There are no new significant masses, abnormal calcifications, or other abnormalities. MM/MM tomosynthesis screening BI IMPRESSION: No significant changes from prior exam. ASSESSMENT: BI-RADS 1: Negative RECOMMENDATION: Routine annual mammography screening. This patient's information was entered into a reminder system with a target due date for their next mammogram.
== END 2022-11-17 07:49 | disposition home or self-care (01) ==
LOC: HO.MAMMO 07:48
PROVIDERS: PCP Internal Medicine; Visit Provider Internal Medicine
DX: Z12.31 Encounter for screening mammogram for malignant neoplasm of breast (principal)
CPT/HCPCS: 77063; 77067

== ENCOUNTER 2023-02-07 07:46 | Outpatient (REF) | payer MEDICARE, SELFPAY ==
[2023-02-07 11:47] LABS: Cholesterol 182 mg/dL; HDL Cholesterol 48 mg/dL; LDL Cholesterol Calculated 96 mg/dl; Triglycerides 191 mg/dL
[2023-02-07 11:51] LABS: Thyroid Stimulating Hormone 0.78 uIU/mL (0.32-4.0)
== END 2023-02-07 07:47 | disposition home or self-care (01) ==
LOC: HO.10HDL 07:46
PROVIDERS: Visit Provider Internal Medicine
DX: E03.9 Hypothyroidism, unspecified (principal); E78.5 Hyperlipidemia, unspecified
CPT/HCPCS: 36415; 80061; 84443

== ENCOUNTER 2023-05-18 07:22 | Outpatient (REF) | payer MEDICARE, SELFPAY ==
[2023-05-18 11:19] LABS: Cholesterol 171 mg/dL (<200); HDL Cholesterol 45 mg/dL (>40); LDL Cholesterol Calculated 79 mg/dL (<100); Triglycerides 235 mg/dL (<150)
[2023-05-18 11:26] LABS: Thyroid Stimulating Hormone 0.45 uIU/mL (0.32-4.0)
== END 2023-05-18 07:23 | disposition home or self-care (01) ==
LOC: HO.10HDL 07:22
PROVIDERS: Visit Provider Internal Medicine
DX: E78.5 Hyperlipidemia, unspecified (principal); E03.9 Hypothyroidism, unspecified
CPT/HCPCS: 36415; 80061; 84443

== ENCOUNTER 2023-05-26 08:35 | Outpatient (AMB) | payer MEDICARE, SELFPAY ==
[2023-05-26 08:37] VITALS: BP 148/72; PULSE 71; O2SAT 98; BMI 26.2
--- NOTE | 2023-05-26 08:37 | A.OFFPC_ITS ---
Vital Signs 05/26/23 08:37 Height 5 ft 6.5 in Weight 165 lb BMI 26.2 BP 148/72 H Blood Pressure Location Lt brachial Position Sitting Pulse 71 Pulse Source Pulse Oximeter Pulse Oximetry (%) 98 Oxygen Delivery Method Room Air Intake Visit Reasons: 3mth f/u Channel Development Director: Not Required per policy Accompanied by: Self / Same As Patient Allergies morphine [MORPHINE] Allergy (Unknown, Verified 05/26/23 08:38) HEART STOPS Medication List - Last Reconciled 05/26/23 by Todd Sanchez MD alendronate 70 mg PO QWEEK apixaban (Eliquis) 5 mg PO DAILY 30 days atorvastatin 20 mg PO DAILY [id number] 50-300-40 mg (Fioricet) 1 cap PO Q8H PRN captopril 25 mg PO TID 90 days hydrochlorothiazide 25 mg PO DAILY levothyroxine TAKE ONE TABLET BY MOUTH EVERY DAY EXCEPT TAKE 2 TABLET DAILY ON MONDAY, MONDAY, MONDAY meclizine 25 mg PO TID metoprolol tartrate 100 mg PO BID raloxifene 60 mg PO DAILY Tobacco use date assessed: 11/04/22 Fall risk assessment: No Falls in past year Last assessed Fall Risk: 05/26/23 Dental Screening Dental Screen Date: 05/26/23 Did you have a dental visit in the last 12 months?: Yes Did you have a dental problem in the last 6 months where you did not have access to dental care?: No Was dental information given to patient?: Patient has dentist HPI 3mth f/u HPI Details afib htn and osteoporosis; doing well; due for labs and bone density [facility] Medical History COVID-19 vaccine series completed Fatty liver Hypothyroidism Menieres disease Osteoarthritis On beta danni at home On anticoagulant therapy Hx of deep venous thrombosis History of diverticulitis Hyperlipidemia Hypertension Surgical History Hx of colonoscopy History of lumpectomy of right breast History of knee replacement procedure of right knee History of arthroscopy of both knees History of tubal ligation Family History Father Past heart attack CAD (coronary artery disease) Mother Diabetes Meniere disease Son No problems noted. Social History Household Members: Spouse Housing: House Are you a primary family day carer to a significant other at home: No Do you presently have visiting nurse or other home services: No Alcohol intake: never Patient Tobacco Use Status: Never used Tobacco e-Cigarette/Vaping Use: Never Used Second Hand Smoke Exposure: No service: No Current occupational status: retired Cognitive needs: No Hearing needs: No Vision needs: Yes (glasses) Questionnaire PHQ-9 Over the last 2 weeks, how often have you been bothered by any of the following problems? 1. Little interest or pleasure in doing things: not at all 2. Feeling down, depressed, or hopeless: not at all 3. Trouble falling or staying asleep, or sleeping too much: not at all 4. Feeling tired or having little energy: not at all 5. Poor appetite or overeating: not at all 6. Feeling bad about yourself - or that you are a failure or have let yourself or your family down: not at all 7. Trouble concentrating on things, such as reading the newspaper or watching television: not at all 8. Moving or speaking so slowly that other people could have noticed. Or the opposite - being so fidgety or restless that you have been moving around a lot more than usual: not at all 9. Thoughts that you would be better off or of hurting yourself in some way: not at all Total score: 0 Depression Screening Interpretation: Negative Source: Developed by Drs. Tapan Raines, Georgina Hanna, Larry Lux and colleagues, with an educational mora from [employer]. Thrive Questionnaire Date Thrive assessed: 11/04/22 AUDIT C Alcohol Use Questionnaire (AUDIT-C) 1. How often do you have a drink containing alcohol?: Never Total Score: 0 Score Reviewed/Action Taken: Yes GABINO-7 AMB Questionnaire GABINO-7 Date GABINO - 7 assessed: 11/04/22 Source: Developed by Drs. Tapan Raines, Larry Summers and colleagues, with an educational mora from [employer]. Review of Systems Const Denies chills, Denies headache(s) and Denies weight loss ENT Denies headache(s) Card Denies chest pain, Denies syncope, Denies irregular heart rhythm and Denies dyspnea Resp Denies chest congestion, Denies cough and Denies dyspnea GI Denies abdominal pain, Denies change in stool character, Denies nausea and Denies vomiting Musc Denies deformity and Denies joint swelling Neuro Denies syncope and Denies headache(s) Physical exam (Primary Care) Vital Signs: Last Vital Signs Pulse 71 05/26/23 08:37 BP 148/72 H 05/26/23 08:37 Pulse Ox 98 05/26/23 08:37 Oxygen Delivery Method Room Air 05/26/23 08:37 BMI result Body Mass Index 26.2 Tobacco/Smoking Status: Tobacco use Status Tobacco use date assessed 11/04/22 05/26/23 08:45 Patient Tobacco Use Status Never used Tobacco 05/26/23 08:45 e-Cigarette/Vaping Use Never Used 05/26/23 08:45 PHQ-9: PHQ-9 Score PHQ-9: Total score 0 05/26/23 08:45 Depression Screening Interpretation: Negative Thrive Assessment: Date of Thrive Assessment Date Thrive assessed 11/04/22 05/26/23 08:45 Const General: cooperative, comfortable, no acute distress and alert Neck Neck: Yes no lymphadenopathy Thyroid: Thyroid normal Resp Effort & Inspection: normal respiratory effort Auscultation: clear to auscultation bilaterally Percussion: percussion normal Cardio Jugular venous distension: no JVD Palpation: normal PMI Rate: regular rate Rhythm: regular rhythm Heart sounds: S1 normal heart sound present and S2 normal heart sound present GI Inspection: Yes normal to inspection Palpation (GI): No hepatosplenomegaly present Skin General skin exam: no rashes or lesions noted Extrem General: Yes no clubbing, cyanosis or edema Assessment and Plan Assessment & Plan (1) Hyperlipidemia: Code(s): E78.5 - Hyperlipidemia, unspecified Plan: doing well; stable on rx; compliant (2) Hypertension: Code(s): I10 - Essential (primary) hypertension Plan: stable; same rx (3) Hypothyroidism: Code(s): E03.9 - Hypothyroidism, unspecified Plan: stable; do labs Orders: Orders Complete Blood Count Auto Diff Today D64.9 - Anemia, unspecified Comprehensive [place]. Panel Fast Today N28.9 - Disorder of kidney and ureter, unspecified Thyroid Stimulating Hormone Today E03.9 - Hypothyroidism, unspecified XR DEXA axial skeleton Today M81.0 - Age-related osteoporosis without current pathological fracture Lipid Panel Today E78.5 - Hyperlipidemia, unspecified Coding Level of Care Code Est Pt Level 4 (14910) Diagnoses Hyperlipidemia E78.5 Hypertension I10 Hypothyroidism E03.9
== END 2023-05-26 08:56 | disposition home or self-care (01) ==
PROVIDERS: PCP Internal Medicine; Visit Provider Internal Medicine
DX: E78.5 Hyperlipidemia, unspecified (principal); I10 Essential (primary) hypertension; E03.9 Hypothyroidism, unspecified
CPT/HCPCS: 99214

== ENCOUNTER 2023-06-06 08:35 | Outpatient (REF) | payer MEDICARE, SELFPAY | END 2023-06-06 08:36 | disposition home or self-care (01) | LOC: HO.MAMMO 08:35 | PROVIDERS: PCP Internal Medicine; Visit Provider Internal Medicine | DX: Z13.820 Encounter for screening for osteoporosis (principal); M81.0 Age-related osteoporosis without current pathological fracture; Z78.0 Asymptomatic menopausal state | CPT/HCPCS: 77080 ==

== ENCOUNTER 2023-07-18 10:56 | Emergency (ER) | payer MEDICARE, SELFPAY ==
[2023-07-18] VITALS (8 sets, daily range): BP systolic 127–160; BP diastolic 47–80; PULSE 78–91; RESP 15–18; TEMP 36.9–38.5; O2SAT 96–99; BMI 26.7
--- NOTE | ~2023-07-18 | XR_ITS ---
EXAMINATION: XR LUMBOSACRAL SPINE CLINICAL INFORMATION: Back pain. Difficulty walking. Rule out fracture COMPARISON: 07/20/2010 TECHNIQUE: Three views of the lumbosacral spine. FINDINGS: Bones are normal anatomic alignment. There is chronic compression deformity along the superior endplate of L1 which is unchanged from multiple years. No acute superimposed fracture or spondylolisthesis. Multilevel degenerative changes is seen with osteophyte formation and sclerotic degenerative changes. Bowel gas pattern unremarkable XR/XR lumbar spine 2-3V IMPRESSION: Multilevel degenerative changes with chronic superior endplate compression deformity of L1. No acute fracture or spondylolisthesis.
--- NOTE | ~2023-07-18 | XR_ITS ---
EXAMINATION: XR CHEST CLINICAL INFORMATION: Cough. COMPARISON: None available. TECHNIQUE: Frontal view of the chest was obtained. FINDINGS: No significant abnormality is noted involving the heart, lungs, mediastinum, bony thorax or soft tissues. XR/XR chest 1V IMPRESSION: Unremarkable chest examination.
--- NOTE | 2023-07-18 11:47 | ECG_ITS ---
Test Reason : WEAKNESS Blood Pressure : / mmHG Vent. Rate : 078 BPM Atrial Rate : 078 BPM P-R Int : 178 ms QRS Dur : 082 ms QT Int : 394 ms P-R-T Axes : 065 -22 019 degrees QTc Int : 449 ms Normal sinus rhythm Low voltage QRS Nonspecific T wave abnormality RSR' or QR pattern in V1 suggests right ventricular conduction delay Abnormal ECG When compared with ECG of 10-JAN-2003 08:55, Nonspecific T wave abnormality now evident in Anterior leads Referred By: Bettie Xavier Electronically Signed By:KATT DESOUZA MD
[2023-07-18 12:21] LABS: MANUAL DIFF FLAG NO
[2023-07-18 12:22] LABS: Basophils Percent Auto 0.2 % (0-2); Eosinophils Percent Auto 0.1 % (0-4); Hematocrit 35.8 % (37.0-47.0); Hemoglobin 11.9 g/dl (12.0-16.0); Imm Gran Abs Auto 0.07 X10*3/uL (0.00-0.03); Imm Gran Pct Auto 0.5 % (0.0-0.4); Lymphocytes Absolute Auto 1.1 X10*3/uL (1.2-4.9); Lymphocytes Percent Auto 7.6 % (20-40); Mean Corpuscular HGB Conc 33.2 g/dl (31.0-35.0); Mean Corpuscular Hemoglobin 30.1 pg (27.0-33.0); Mean Corpuscular Volume 90.6 fL (80.0-98.0); Mean Platelet Volume 9.9 fL (9.4-12.3); Monocytes Absolute Auto 1.5 X10*3/uL (0.1-1.2); Monocytes Percent Auto 10.1 % (2-11); Neutrophils Absolute Auto 11.7 x10*3/uL (2.0-8.3); Neutrophils Percent Auto 81.5 % (45-73); Platelet Count 282 X10*3/uL (160-400); Red Blood Count 3.95 X10*6/uL (4.20-5.50); Red Cell Distribution Width 11.4 % (11.0-16.0); White Blood Count 14.4 X10*3/uL (4.8-10.8)
--- NOTE | 2023-07-18 12:34 | ED.GENADULT ---
HPI - General Adult General Chief complaint: General Medical Stated complaint: FLU LIKE SX,COUGH,SINAI,NDIAYE PER EMS Time Seen by Provider: 07/18/23 11:57 Source: patient Mode of arrival: ambulatory Limitations: no limitations History of Present Illness HPI narrative: 73 year old female with pmhx significant for hypothyroid, hyperlipidemia, hypertension, DVT, diverticulitis, and nonalcoholic fatty liver disease, osteoporosis presents to the ED today via EMS for evaluation of generalized weakness and bilateral foot pain x1 month. States that 1 month ago she had an upper respiratory infection and now has a lingering productive cough. Over the past 2 weeks she has felt generally weak. Additionally endorses bilateral foot pain. States that she has chronic neuropathy however her shoes have recently been irritating the top of her feet. She notes it is painful to stand on her feet and is making it difficult to ambulate. States she is able to ambulate however has not wanted to ambulate over the past 2 days due to the pain in her feet. Denies dizziness, neck or back pain, chest pain, shortness of breath, wheezing, dysuria, hematuria, lower extremity edema/erythema. Denies recent travel or long car rides. Denies hormone use. Related Data Home Medications Medication Instructions Recorded Confirmed alendronate 70 mg tablet 70 mg PO TH 07/19/23 07/19/23 atorvastatin 20 mg tablet 20 mg PO BEDTIME 07/19/23 07/19/23 biotin 5 mg capsule 5 mg PO DAILY 07/19/23 07/19/23 caffeine 200 mg tablet 200 mg PO DAILY PRN headache 07/19/23 07/19/23 prevention cholecalciferol (vitamin D3) 25 25 mcg PO DAILY 07/19/23 07/19/23 mcg (1,000 unit) tablet levothyroxine 125 mcg tablet 125 mcg PO MOTUWETHFRSA 07/19/23 07/19/23 levothyroxine 125 mcg tablet 250 mcg PO CARVAJAL 07/19/23 07/19/23 meclizine 25 mg tablet 25 mg PO BID 07/19/23 07/19/23 meclizine 25 mg tablet 25 mg PO DAILY@1600 PRN Dizziness 07/19/23 07/19/23 Or Vertigo multivitamin 1 tab PO DAILY 07/19/23 07/19/23 raloxifene 60 mg tablet 60 mg PO DAILY 07/19/23 07/19/23 Previous Rx's Medication Instructions Recorded hydrochlorothiazide 25 mg tablet 25 mg PO DAILY #90 tabs 02/10/23 bwtgteipnd-ueophrcwvsmte-dhslrqnk 1 cap PO Q8H PRN pain #30 caps 03/20/23 50 mg-300 mg-40 mg capsule (Fioricet) captopril 25 mg tablet 25 mg PO TID 90 days #270 tabs 04/24/23 apixaban 5 mg tablet (Eliquis) 5 mg PO DAILY 30 days #30 tabs 05/21/23 metoprolol tartrate 100 mg tablet 100 mg PO BID #180 tabs 07/13/23 doxycycline hyclate 100 mg capsule 100 mg PO BID 6 days #12 caps 07/19/23 gabapentin 100 mg capsule 100 mg PO BID 2 weeks #28 caps 07/19/23 Allergies Allergy/AdvReac Type Severity Reaction Status Date / Time morphine [MORPHINE] Allergy Unknown HEART Verified 07/18/23 11:22 STOPS Review of Systems Review of Systems: Constitutional: No fever, chills, fatigue, night sweats, weight changes, +generalized weakness ENT/Mouth: No ear pain, hearing loss, nasal congestion, sinus pain, rhinorrhea, sore throat Eyes: No eye pain, swelling, redness, vision changes, discharge Cardio: No chest pain, palpitations, ALVARADO, orthopnea, peripheral edema Pulm: No SOB, +cough, No sputum, wheezing, dyspnea, hemoptysis GI: No nausea, vomiting, hematemesis, abdominal pain, diarrhea, constipation, hematochezia, melena : No irregular bleeding, dysuria, frequency, urgency, hesitancy, hematuria, flank pain, urinary flow changes, urinary incontinence or retention MSK: No back pain, neck pain, joint pain, myalgias, +pain to b/l feet Skin: No lesions, rashes Neuro: No weakness, numbness, paresthesias, LOC, dizziness, headache All other systems reviewed and are negative. [facility] Past Medical History Attestation statement: The following information was validated with the patient. Source: old records reviewed and nursing notes reviewed Medical History COVID-19 vaccine series completed Fatty liver Hypothyroidism Menieres disease Osteoarthritis On beta danni at home On anticoagulant therapy Hx of deep venous thrombosis History of diverticulitis Hyperlipidemia Hypertension Surgical History Hx of colonoscopy History of lumpectomy of right breast History of knee replacement procedure of right knee History of arthroscopy of both knees History of tubal ligation Family History Family History Father Past heart attack CAD (coronary artery disease) Mother Diabetes Meniere disease Son No problems noted. Social History Household Members: Spouse Housing: House Are you a primary rn home care to a significant other at home: No Do you presently have visiting nurse or other home services: No Alcohol intake: never Patient Tobacco Use Status: Never used Tobacco e-Cigarette/Vaping Use: Never Used Second Hand Smoke Exposure: No Use of substances other than those prescribed or required for medical reasons: No Advance Directives: No Advance Directives Information Provided: Yes service: No Current occupational status: retired Cognitive needs: No Hearing needs: No Vision needs: Yes (glasses) Physical Exam ED Vital Signs: Vital Signs - 24 hr 07/18/23 20:16 07/18/23 21:34 07/18/23 21:54 Temperature 101.3 F H 100.2 F 100.2 F Pulse Rate 88 91 Respiratory Rate 16 15 Blood Pressure 152/60 H 131/47 L Pulse Oximetry 98 97 Oxygen Delivery Method Room Air Room Air 07/19/23 02:24 07/19/23 05:51 07/19/23 07:28 Temperature 98.3 F 98.3 F Pulse Rate 97 97 Respiratory Rate 17 Blood Pressure 152/61 H 152/61 H Pulse Oximetry 98 98 Oxygen Delivery Method Room Air 07/19/23 08:41 Temperature 99.1 F Pulse Rate 98 Respiratory Rate 19 Blood Pressure 127/59 L Pulse Oximetry 97 Oxygen Delivery Method Room Air BMI result Body Mass Index 26.7 Vital signs stable Const General: cooperative, healthy appearing, comfortable, no acute distress, alert and awake Orientation/consciousness: patient oriented x3 Limitations: no limitations HENMT Head: Yes normal to inspection Ears: hearing grossly normal bilaterally General nose exam: Normal external nose present Mouth: Normal oral and palatal mucosa present and moist mucous membranes Eyes General: appearance normal, both eyes and all related structures Conjunctivae: conjunctivae normal Sclerae: sclerae normal Pupils: Equal, round and reactive pupils present Neck Neck: Yes normal visual inspection, Yes full ROM and Yes no lymphadenopathy Resp Effort & Inspection: normal respiratory effort, able to speak in complete sentences and no respiratory distress Auscultation: clear to auscultation bilaterally, no crackles, no rhonchi and no wheezes Cardio Rate: regular rate Rhythm: regular rhythm Peripheral pulses: radial pulses present, posterior tibial pulses present and dorsalis pedis present GI Inspection: Yes normal to inspection Palpation (GI): Soft to palpation, nontender and no guarding Back/Spine/Pelvis Other: No midline spinous tenderness. No paraspinal muscle tenderness bilaterally. No step-off deformity. Skin General skin exam: no rashes or lesions noted Neuro Other: Strength 5/5 intact throughout.?No saddle anesthesia.?Sensation intact to light touch.?NV intact distally.? Patellar DTRs 2+ to left. Knee replacement noted to rate. Patient unable to stand unassisted on exam due to pain in her feet. Unable to assess gait. General: patient oriented x3, gait normal, moves all extremities and Unable to assess gait Cranial nerves: Yes CN's II-XII intact bilaterally and Yes Equal, round and reactive pupils present Gait exam (Neuro): Unable to assess gait Deep tendon reflexes (DTR's): Left patellar reflex intensity grade: 2+ Pupils: Normal pupillary reactivity/response: bilateral Extrem General: Yes normal to inspection and Yes full ROM Course Course Course Narrative: CXR does not show any consolidations or infiltrates to suggest pneumonia. No pleural effusion. CBC with leukocytosis to 14.4 with left shift > this is likely secondary to chronic cough and suspected bronchitis due to bacterial infection not identified on chest x-ray. Will place patient on doxy 100 mg b.i.d.. With 1 dose given right now. Chronically elevated renal function, appears to be around patient's baseline when compared to priors. I do not suspect JODI. TSH noted to be low at 0.28 > will hold levothyroxine. Negative for flu, RSV, COVID. 1617-- physician observation initiated pending x-ray, UA, IV fluids, PT/CM and disposition. 1811-- patient signed out to my colleague Lise Avila pending x-ray, UA, IV fluids and PT/case management consultation. Reevaluation(s) Reevaluation #1: X-ray of lumbar spine appears to have chronic findings no acute findings. Urine still pending Time: 19:45 Reevaluation #2: [id number] 07/19/23-- urine without infection. Spoke with case management. Physical therapy recommended short-term rehab. Patient is declining at this time. Patient to be discharged home with VNA. This will be set up by case management. I discussed plan with patient. As bilateral lower extremity pain is consistent with neuropathy, will send her home with a trial of gabapentin for the next 2 weeks. I advised her to follow up with either her primary care provider or neurologist. Will provide her with a referral. Will also send her home with an antibiotic as I suspect she has bronchitis. Although chest x-ray was unremarkable, patient has had chronic cough x1 month with leukocytosis. Doxycycline will be sent to her pharmacy to take twice daily for the next 6 days as she already received a dose in the emergency department. Additionally informed patient of low TSH results. She tells me that her TSH fluctuates and is currently being evaluated by her primary care provider for this. I advised her to follow-up with them this week regarding this finding as they may need to adjust her levothyroxine. She expresses understanding. Discussed disposition with patient, her and her grandson who all agree with plan. Patient has remained stable in the emergency department. She is stable for discharge. Medications Administered Discontinued Medications Generic Name Dose Route Start Last Admin Trade Name Freq PRN Reason Stop Dose Admin Acetaminophen 650 mg 07/18/23 20:14 07/18/23 20:55 Acetaminophen 325 Mg Tablet PO 07/18/23 20:15 650 mg ONCE ONE Administration Apixaban 5 mg 07/19/23 09:00 07/19/23 10:22 Apixaban 5 Mg Tablet PO 5 mg DAILY MELBA Administration Captopril 25 mg 07/19/23 09:00 07/19/23 10:22 Captopril 25 Mg Tablet PO Not Given TID [facility] Protocol Doxycycline Monohydrate 100 mg 07/18/23 16:51 07/18/23 17:31 Doxycycline Monohydrate 100 Mg Capsule PO 07/18/23 16:52 100 mg ONCE ONE Administration Doxycycline Monohydrate 100 mg 07/18/23 21:00 07/18/23 20:35 Doxycycline Monohydrate 100 Mg Capsule PO Not Given BID MELBA Doxycycline Monohydrate 100 mg 07/19/23 05:30 07/19/23 05:57 Doxycycline Monohydrate 100 Mg Capsule PO 100 mg Q12H MELBA Administration Hydrochlorothiazide 25 mg 07/19/23 09:00 07/19/23 10:21 Hydrochlorothiazide 25 Mg Tablet PO 25 mg DAILY MELBA Administration Protocol Sodium Chloride 1,000 mls @ 999 mls/hr 07/18/23 15:45 07/18/23 17:22 Ns IV 07/18/23 16:45 Infused .Q1H1M MELBA Infusion Meclizine HCl 25 mg 07/19/23 09:00 07/19/23 10:21 Meclizine Hcl 25 Mg Tablet PO 25 mg BID MELBA Administration Metoprolol Tartrate 100 mg 07/19/23 09:00 07/19/23 10:21 Metoprolol Tartrate 100 Mg Tablet PO 100 mg BID MELBA Administration Protocol Medical Decision Making Medical Decision Making [facility] Narrative: 73 year old female with pmhx significant for hypothyroid, hyperlipidemia, hypertension, DVT, diverticulitis, and nonalcoholic fatty liver disease, osteoporosis presents to the ED today via EMS for evaluation of generalized weakness and bilateral foot pain x1 month. VSS. Afebrile. No midline spinous tenderness. No paraspinal muscle tenderness bilaterally. No step-off deformity. 2+ left patellar DTRs. Unable to assess DTRs to right patella as patient is status post knee replacement. Clinical concern for viral syndrome, bronchitis, upper respiratory infection, pneumonia. Concern for urinary tract infection. Concern for arrhythmia, ACS, hypothyroidism, electrolyte abnormality, anemia. Unlikely DVT or pulmonary embolism, patient on AC. Concern for arthritis, fracture, subluxation. Unlikely cauda equina, cord compression, epidural abscess, Guillain-Knifley. Plan at this time is basic labs, EKG, chest x-ray, re-evaluation. Differential Diagnosis Differential Diagnoses: The differential diagnosis associated with the presentation includes As above. Admission/Observation Consideration of admission/observation: Escalation of care including admission/observation considered In this 73-year-old patient with neuropathy and difficulty ambulating, admission was considered. Lab Data [facility] Lab Attestation statement: I reviewed the patient's lab results. As above. 07/18/23 12:15 07/18/23 12:15 Labs: Lab Results 1107/18/23 07/18/23 Range/Units 12:15 17:43 19:56 WBC 14.4 H (4.8-10.8) X10*3/uL RBC 3.95 L (4.20-5.50) X10*6/uL Hgb 11.9 L (12.0-16.0) g/dl Hct 35.8 L (37.0-47.0) % MCV 90.6 (80.0-98.0) fL MCH 30.1 (27.0-33.0) pg MCHC 33.2 (31.0-35.0) g/dl RDW 11.4 (11.0-16.0) % Plt Count 282 (160-400) X10*3/uL MPV 9.9 (9.4-12.3) fL Immature Gran % (Auto) 0.5 H (0.0-0.4) % Neut % (Auto) 81.5 H (45-73) % Lymph % (Auto) 7.6 L (20-40) % Moca % (Auto) 10.1 (2-11) % Eos % (Auto) 0.1 (0-4) % Baso % (Auto) 0.2 (0-2) % Lymph # (Auto) 1.1 L (1.2-4.9) X10*3/uL [place]oca # (Auto) 1.5 H (0.1-1.2) X10*3/uL Eos # (Auto) 0.0 (0.0-0.4) X10*3/uL Baso # (Auto) 0.0 (0.0-0.2) X10*3/uL Abs Immat Gran (auto) 0.07 H (0.00-0.03) X10*3/uL Absolute Neuts (auto) 11.7 H (2.0-8.3) x10*3/uL Absolute Nucleated RBC 0.000 (0.0-0.012) X10*3/uL Nucleated RBC % (auto) 0.0 (0.0-0.2) /100WBC Sodium 138 (135-145) mmol/L Potassium 4.5 (3.3-5.1) mmol/L Chloride 101 (96-108) mmol/L Carbon Dioxide 30 H (22-29) mmol/L Anion Gap 12 (12-20) BUN 24 H (9-16) mg/dL Creatinine 1.42 H (0.5-1.4) mg/dL Estim Creat Clear Calc 36.6 Estimated GFR 36 Random Glucose 165 H (60-115) mg/dL Calcium 9.3 (8.4-10.2) mg/dL Magnesium 1.9 (1.6-2.6) mg/dL Total Bilirubin 0.4 (0.0-1.0) mg/dL Direct Bilirubin 0.2 (0.0-0.5) mg/dL AST 15 (5-31) U/L ALT 14 (0-31) U/L Alkaline Phosphatase 80 (39-117) U/L Troponin I High Sens 8.2 (<3.5-17.0) ng/L Total Protein 7.7 (6.5-8.0) g/dL Albumin 3.6 (3.5-5.0) g/dL TSH 0.28 L (0.32-4.0) uIU/mL Urine Color Yellow Urine Appearance Clear Urine pH 5.0 (5.0-9.0) Ur Specific [place] 1.015 (1.005-1.025) Urine Protein Trace (Neg-Trace) mg/dL Urine Glucose (UA) Negative (Negative) mg/dL Urine Ketones Negative (Negative) mg/dL Urine Blood Negative (Negative) Urine Nitrite Negative (Negative) Ur Leukocyte Esterase Moderate (2+) H (Negative) Urine RBC 0-2 (0-2) /HPF Urine WBC 21-50 H (0-5) /HPF Ur Squamous Epith Cells 0-2 (0-2) /HPF Urine Bacteria None Seen (None Seen) Hyaline Casts 0-2 (0-2) /LPF Influenza Type A (PCR) NEGATIVE (Negative) Influenza Type B (PCR) NEGATIVE (Negative) RSV RNA Qual (PCR) NEGATIVE (Negative) SARS-CoV-2 RNA (RT-PCR) NEGATIVE (Negative) Independent Interpretation I performed an independent interpretation of an: Plain X-Ray Interpretation: Chest x-ray without infiltrates or consolidations, no effusion, agree with radiologist's interpretation. X-ray lumbar spine without acute fracture, agree with radiologist's interpretation. Radiology Impression Discussion of test interpretation with radiology: I have reviewed the radiologist's reading. Radiologist Impression: XR chest 1V IMPRESSION: Unremarkable chest examination. XR lumbar spine 2-3V IMPRESSION: Multilevel degenerative changes with chronic superior endplate compression deformity of L1. No acute fracture or spondylolisthesis. Independent Historian Clinical information obtained from an independent historian. History obtained from or confirmed by: Spouse, EMS and Other (Grandson) External Record Review External record reviewed: Inpatient record, Office record, Outpatient record, Prior outpatient labs, Prior outpatient radiology, Primary care record and Outside ED record Prescription Management I considered prescription management with: Pain Medication and Antibiotic Chronic Conditions Patient?s care impacted by: Other ( Hypothyroid, chronic back pain) Social Determinants Patient?s care significantly limited by Social Determinants of Health including: Other Social Determinant of Health Critical Care Time Critical Care Time Critical Care Time: No Discharge Plan Discharge Clinical Impression: Acute bronchitis, Bilateral leg pain Patient Disposition: Home, Self-Care Instructions: Acute Bronchitis (ED), Leg Pain (ED) Additional Instructions: Your urine did not demonstrate infection. Your labs are reassuring. You were noted to have a low TSH. Please follow-up with your primary care doctor regarding your levothyroxine dose. The x-ray of her chest did not show any pneumonia however I suspect that you have bronchitis with a chronic cough. You were given a dose of doxycycline which is an antibiotic in the emergency department. A 6 day course of this will be sent to your pharmacy. Take this twice daily for bronchitis. Gabapentin is a nerve pain medication that has been sent to your pharmacy. You may take this twice daily over the next 2 weeks to help with your nerve pain. This may make you tired during the day. Please follow-up with your primary care provider for subsequent prescriptions. You have also been provided with a referral to a neurologist. Call them to make an appointment. They will not call you. The x-ray of her lumbar spine did not show acute fracture. You met with case management and physical therapy with plan to be discharged home with VNA. If symptoms persist or worsen please return to the emergency department. In the case of an emergency call 911. Prescriptions: New gabapentin 100 mg capsule 100 mg PO BID 14 Days Qty: 28 0RF doxycycline hyclate 100 mg capsule 100 mg PO BID 6 Days Qty: 12 0RF No Action hydrochlorothiazide 25 mg tablet 25 mg PO DAILY Qty: 90 8RF fjdimdscum-oyrwzqqtfedaa-jtvi [Fioricet] 50-300-40 mg capsule 1 cap PO Q8H PRN (Reason: pain) Qty: 30 0RF captopril 25 mg tablet 25 mg PO TID 90 Days Qty: 270 3RF Eliquis 5 mg tablet 5 mg PO DAILY 30 Days Qty: 30 8RF metoprolol tartrate 100 mg tablet 100 mg PO BID Qty: 180 8RF raloxifene 60 mg tablet 60 mg PO DAILY multivitamin Tablet 1 tab PO DAILY caffeine 200 mg Tablet 200 mg PO DAILY PRN (Reason: headache prevention) atorvastatin 20 mg tablet 20 mg PO BEDTIME biotin 5 mg Capsule 5 mg PO DAILY alendronate 70 mg tablet 70 mg PO TH meclizine 25 mg Tablet 25 mg PO BID meclizine 25 mg Tablet 25 mg PO DAILY@1600 PRN (Reason: Dizziness Or Vertigo) levothyroxine 125 mcg tablet 125 mcg PO MOTUWETHFRSA levothyroxine 125 mcg tablet 250 mcg PO CARVAJAL cholecalciferol (vitamin D3) 25 mcg (1,000 unit) Tablet 25 mcg PO DAILY Referrals: Judson Oreilly MD, PhD [Physician] - Interventions: ED Discharge Assessment Last Done: 07/19/23 12:08 Discharge Date/Time: 07/19/23 12:37
[2023-07-18 12:39] LABS: Alanine Aminotransferase 14 U/L (0-31); Albumin Level 3.6 g/dL (3.5-5.0); Alkaline Phosphatase 80 U/L (39-117); Anion Gap 12 (12-20); Aspartate Amino Transferase 15 U/L (5-31); Bilirubin Direct 0.2 mg/dL (0.0-0.5); Bilirubin Total 0.4 mg/dL (0.0-1.0); Blood Urea Nitrogen 24 mg/dL (9-16); Calcium 9.3 mg/dL (8.4-10.2); Carbon Dioxide 30 mmol/L (22-29); Chloride 101 mmol/L (96-108); Creatinine Clr Calc Pharmacy 36.6; Estimated Glomerular Filt Rate 36; Glucose Random 165 mg/dL (60-115); Magnesium 1.9 mg/dL (1.6-2.6); Potassium 4.5 mmol/L (3.3-5.1); Sodium 138 mmol/L (135-145); Total Protein 7.7 g/dL (6.5-8.0)
[2023-07-18 13:00] LABS: Influenza A PCR NEGATIVE (Negative); Influenza B PCR NEGATIVE (Negative); Resp Syncy Virus RNA Qual PCR NEGATIVE (Negative); SARS COV2 PCR INHOUSE NEGATIVE (Negative)
[2023-07-18] MEDS: 0.9 % Sodium Chloride 1,000 ML 999 ML IV (16:09)
[2023-07-18 16:16] LABS: Thyroid Stimulating Hormone 0.28 uIU/mL (0.32-4.0)
[2023-07-18] MEDS: Doxycycline Monohydrate 100 MG CAPSULE PO (17:31)
[2023-07-18 18:11] LABS: Troponin-I High Sensitivity 8.2 ng/L (<3.5-17.0)
--- NOTE | 2023-07-18 19:41 | MHC.EDTECH ---
Pt was incontinent of urine ,care given ,pt was set up for dinner ,Call green within Pt reach .
--- NOTE | 2023-07-18 19:59 | MHC.EDTECH ---
Patient ate 25 % of meal ,drank 240 ml fluids ,urine sample collected and sent to lab .
[2023-07-18 20:02] LABS: Appearance Urine Clear; Color Urine Yellow; Glucose Urine UA Negative (Negative); Leukocyte Esterase Urine Moderate (2+) (Negative); Nitrite Urine Negative (Negative); Specific Gravity - Urine 1.015 (1.005-1.025); UMIC TRIGGER UACC YES; Urine Blood Negative (Negative); Urine Ketones Negative (Negative); Urine Protein Trace mg/dL (Neg-Trace)
[2023-07-18 20:06] LABS: Bacteria Urine None Seen (None Seen); Hyaline Casts Urine 0-2 /LPF (0-2); RBC Urine 0-2 /HPF (0-2); Squamous Epithelial Cell Urine 0-2 /HPF (0-2); UACC Culture Trigger YES; WBC Urine 21-50 /HPF (0-5)
--- NOTE | 2023-07-18 20:18 | MHC.EDTECH ---
PATIENT WAS INCONIENT OF LOOSE STOOL ,CARE GIVEN AND BED PAD CHANGE ,RN AND PROVIDER IS AWARE OF PT HIGH TEMP .
--- NOTE | 2023-07-18 20:31 | PC.NURSE ---
pt febrile 101.3F Maya VALLADARES aware. pt reports diarrhea denies cp/sob/n/v/abd pain. nsr on monitor sats 98% RA. pt reports intermittent cough lung sounds cta resp even and unlabored. call green within reach.
--- NOTE | 2023-07-18 20:36 | PC.NURSE ---
doxy held as first dose given at 1730 Maya VALLADARES aware; abx retimed via pharmacy for AM dose.
[2023-07-18] MEDS: Acetaminophen 325 MG TABLET 650 MG PO (20:55)
--- NOTE | 2023-07-18 21:36 | MHC.EDTECH ---
Vitals taken ,temp went down ,RN Irem aware ,Call green within reach .
--- NOTE | 2023-07-19 01:32 | PC.NURSE ---
pt sleeping in stretcher resp even and unlabored nsr on monitor. call green within reach.
[2023-07-19 02:24] VITALS: TEMP 36.8
--- NOTE | 2023-07-19 02:25 | PC.NURSE ---
pt requested bed huston and warm blankets.
[2023-07-19 05:51] VITALS: BP 152/61; PULSE 97; RESP 17; TEMP 36.8; O2SAT 98
[2023-07-19] MEDS: Doxycycline Monohydrate 100 MG CAPSULE PO (05:57)
--- NOTE | 2023-07-19 06:12 | PC.NURSE ---
pt medicated per mar. med rec done with pt.
[2023-07-19 07:28] VITALS: BP 152/61; PULSE 97; O2SAT 98
[2023-07-19 08:41] VITALS: BP 127/59; PULSE 98; RESP 19; TEMP 37.3; O2SAT 97
--- NOTE | 2023-07-19 09:45 | PC.NURSE ---
Multiple calls placed to pharmacy to verify patients homes meds
--- NOTE | 2023-07-19 09:45 | PHA.MEDREC ---
Pharmacy Consult ? Medication Reconciliation Pharmacy has completed the medication reconciliation. Spoke to patient at bedside
--- NOTE | 2023-07-19 10:00 | MHC.CM.PN ---
Addendum entered by Mary Abdalla RN 07/19/23 11:36: [facility] will provide services. Patient aware. Grandson at bedside to transport home. PA aware. Addendum entered by Mary Abdalla RN 07/19/23 10:18: Correction - is [facility] to transport home Original Note: Received CM consult and met with patient at bedside. Patient is from home with . Independent with ADL's. Ambulates with a walker, uses w/c in home PRN. Has weekly private home making services, no other services. PCP: Todd Sanchez HCP: assisted in completing HCP. Patient has named agents 1) Umer, 2) daughter Rosalba DCP: PT has recommended STR. Patient is declining at this time. Prefers to go home with VNA, has used in the past and found helpful. Referral made in [facility].
[2023-07-19] MEDS: Metoprolol Tartrate 100 MG TABLET PO (10:21)
[2023-07-19] MEDS: hydroCHLOROthiazide 25 MG TABLET PO (10:21)
[2023-07-19] MEDS: Meclizine HCl 25 MG TABLET PO (10:21)
[2023-07-19] MEDS: Apixaban 5 MG TABLET PO (10:22)
--- NOTE | 2023-07-19 12:13 | PC.NURSE ---
Discharge plan reviewed with patient and family who verbalized understanding
== END 2023-07-19 12:37 | disposition home or self-care (01) ==
PROVIDERS: Physician Assistant; Physician Assistant Medical; Emergency Provider Emergency Medicine Emergency Medical Services; PCP Internal Medicine
DX: J20.9 Acute bronchitis, unspecified (principal); R05.9 Cough, unspecified; M79.672 Pain in left foot; M79.671 Pain in right foot; R26.2 Difficulty in walking, not elsewhere classified; M54.50 Low back pain, unspecified; Z20.822 Contact with and (suspected) exposure to COVID-19; Z20.828 Contact with and (suspected) exposure to other viral communicable diseases; Z79.899 Other long term (current) drug therapy
CPT/HCPCS: 0241U; 36415; 71045; 72100; 80048; 80076; 81001; 81003; 83735; 84443; 84484; 85025; 87086; 93005; 96360; 97162; 99284; 99285

== ENCOUNTER 2023-09-21 07:35 | Outpatient (REF) | payer MEDICARE, SELFPAY ==
[2023-09-21 10:45] LABS: MANUAL DIFF FLAG NO
[2023-09-21 10:54] LABS: Basophils Percent Auto 0.5 % (0-2); Eosinophils Absolute Auto 0.3 X10*3/uL (0.0-0.4); Eosinophils Percent Auto 4.1 % (0-4); Hematocrit 39.2 % (37.0-47.0); Imm Gran Abs Auto 0.02 X10*3/uL (0.00-0.03); Imm Gran Pct Auto 0.3 % (0.0-0.4); Lymphocytes Percent Auto 26.2 % (20-40); Mean Corpuscular HGB Conc 33.2 g/dl (31.0-35.0); Mean Corpuscular Hemoglobin 30.2 pg (27.0-33.0); Mean Platelet Volume 10.9 fL (9.4-12.3); Monocytes Absolute Auto 0.5 X10*3/uL (0.1-1.2); Monocytes Percent Auto 6.3 % (2-11); Neutrophils Absolute Auto 4.7 x10*3/uL (2.0-8.3); Neutrophils Percent Auto 62.6 % (45-73); Platelet Count 214 X10*3/uL (160-400); Red Blood Count 4.31 X10*6/uL (4.20-5.50); Red Cell Distribution Width 12.2 % (11.0-16.0); White Blood Count 7.6 X10*3/uL (4.8-10.8)
[2023-09-21 11:42] LABS: Alanine Aminotransferase 13 U/L (0-31); Albumin Level 3.9 g/dL (3.5-5.0); Alkaline Phosphatase 71 U/L (39-117); Anion Gap 14 (12-20); Aspartate Amino Transferase 17 U/L (5-31); Bilirubin Total 0.4 mg/dL (0.0-1.0); Blood Urea Nitrogen 21 mg/dL (9-16); Calcium 9.6 mg/dL (8.4-10.2); Carbon Dioxide 27 mmol/L (22-29); Chloride 104 mmol/L (96-108); Cholesterol 180 mg/dL (<200); Estimated Glomerular Filt Rate 42; Glucose Fasting 118 mg/dL (60-99); HDL Cholesterol 45 mg/dL (>40); LDL Cholesterol Calculated 93 mg/dL (<100); Potassium 3.8 mmol/L (3.3-5.1); Sodium 141 mmol/L (135-145); Total Protein 7.3 g/dL (6.5-8.0); Triglycerides 210 mg/dL (<150)
== END 2023-09-21 07:36 | disposition home or self-care (01) ==
LOC: HO.10HDL 07:35
PROVIDERS: Visit Provider Internal Medicine
DX: D64.9 Anemia, unspecified (principal)
CPT/HCPCS: 36415; 80053; 80061; 84443; 85025

== ENCOUNTER 2023-09-26 11:04 | Outpatient (AMB) | payer MEDICARE, SELFPAY ==
[2023-09-26 11:07] VITALS: BP 136/86; PULSE 70; O2SAT 99; BMI 26.3
--- NOTE | 2023-09-26 11:07 | MHC.PC.OV ---
Vital Signs 09/26/23 11:07 Height 5 ft 7 in Weight 168 lb BMI 26.3 BP 136/86 Blood Pressure Location Lt brachial Position Sitting Pulse 70 Pulse Source Pulse Oximeter Pulse Oximetry (%) 99 Oxygen Delivery Method Room Air Intake Visit Reasons: 3mon F/U Cardiology Technologist Required: No Residential Manager: Not Required per policy Accompanied by: Self / Same As Patient Allergies morphine [MORPHINE] Allergy (Unknown, Verified 09/26/23 11:07) HEART STOPS Medication List - Last Reconciled 09/26/23 by Todd Sanchez MD alendronate 70 mg PO TH apixaban (Eliquis) 5 mg PO DAILY 30 days atorvastatin 20 mg PO BEDTIME biotin 5 mg PO DAILY bejnpslswd-ykktzwzqhhgzp-vthg 50-300-40 mg (Fioricet) 1 cap PO Q8H PRN caffeine 200 mg PO DAILY PRN captopril 25 mg PO TID 90 days cholecalciferol (vitamin D3) 25 mcg PO DAILY doxycycline hyclate 100 mg PO BID 6 days gabapentin 100 mg PO BID 2 weeks hydrochlorothiazide 25 mg PO DAILY levothyroxine 125 mcg PO MOTUWETHFRSA levothyroxine 250 mcg PO CARVAJAL meclizine 25 mg PO BID meclizine 25 mg PO DAILY@1600 PRN metoprolol tartrate 100 mg PO BID multivitamin 1 tab PO DAILY raloxifene 60 mg PO DAILY Tobacco use date assessed: 09/26/23 Fall risk assessment: No Falls in past year Last assessed Fall Risk: 09/26/23 Dental Screening Dental Screen Date: 09/26/23 Did you have a dental visit in the last 12 months?: Yes Did you have a dental problem in the last 6 months where you did not have access to dental care?: No Was dental information given to patient?: Patient has dentist HPI 3mon F/U HPI Details pain MTPs both feet with swelling PFSH Medical History COVID-19 vaccine series completed Fatty liver Hypothyroidism Menieres disease Osteoarthritis On beta danni at home On anticoagulant therapy Hx of deep venous thrombosis History of diverticulitis Hyperlipidemia Hypertension Surgical History Hx of colonoscopy History of lumpectomy of right breast History of knee replacement procedure of right knee History of arthroscopy of both knees History of tubal ligation Family History Father Past heart attack CAD (coronary artery disease) Mother Diabetes Meniere disease Son No problems noted. Social History Household Members: Spouse Housing: House Are you a primary director critical care to a significant other at home: No Do you presently have visiting nurse or other home services: No Alcohol intake: never Comment: uses walker prn Patient Tobacco Use Status: Never used Tobacco e-Cigarette/Vaping Use: Never Used Second Hand Smoke Exposure: No service: No Current occupational status: retired Cognitive needs: No Hearing needs: No Vision needs: Yes (glasses) Questionnaire PHQ-9 Over the last 2 weeks, how often have you been bothered by any of the following problems? 1. Little interest or pleasure in doing things: not at all 2. Feeling down, depressed, or hopeless: not at all 3. Trouble falling or staying asleep, or sleeping too much: not at all 4. Feeling tired or having little energy: not at all 5. Poor appetite or overeating: not at all 6. Feeling bad about yourself - or that you are a failure or have let yourself or your family down: not at all 7. Trouble concentrating on things, such as reading the newspaper or watching television: not at all 8. Moving or speaking so slowly that other people could have noticed. Or the opposite - being so fidgety or restless that you have been moving around a lot more than usual: not at all 9. Thoughts that you would be better off or of hurting yourself in some way: not at all Total score: 0 Depression Screening Interpretation: Negative Depression Screening Done: Yes 57458 - PHQ-9 Billing: Yes Source: Developed by Drs. Tapan Raines, Georgina Hanna, Laryr Lux and colleagues, with an educational mora from [employer]. Thrive Questionnaire Date Thrive assessed: 09/26/23 I am a: Patient What is your living situation today?: I have a steady place to live Within the past 12 months, did the food you bought not last and you didn't have the money to get more?: Never true Within the past 12 months, did you worry whether your food would run out before you got money to buy more?: Never true Do you have trouble paying for medicines?: No Do you have trouble getting transportation to medical appointments?: No Do you have trouble paying your heating and electricity bill?: No Do you have trouble taking care of your child, family member or friend?: No Do you have trouble with day-to-day activities such as bathing, preparing meals, shopping, managing finances, etc.?: No Are you currently unemployed and looking for a job?: No Are you interested in more education?: No Please select the resources that you would like help with: None THRIVE Score: 0 AUDIT C Alcohol Use Questionnaire (AUDIT-C) 1. How often do you have a drink containing alcohol?: Never Total Score: 0 Score Reviewed/Action Taken: Yes GABINO-7 AMB Questionnaire GABINO-7 Date GABINO - 7 assessed: 09/26/23 Feeling nervous, anxious, or on edge: 0 = Not at all Not being able to stop or control worryin = Not at all Worrying too much about different things: 0 = Not at all Trouble relaxin = Not at all Being so restless that it is hard to sit still: 0 = Not at all Becoming easily annoyed or irritable: 0 = Not at all Feeling afraid as if something awful might happen: 0 = Not at all Total GABINO-7 score (0-4 normal; 5-9 mild; 10-14 moderate; 15-21 severe): 0 Source: Developed by Drs. Tapan Raines, Georgina Hanna, Larry Lux and colleagues, with an educational mora from [employer]. GABINO-7 Assessment Billing GABINO-7 Assessment Tool: GABINO-7 Assessment 37725 Review of Systems Const Denies chills, Denies headache(s) and Denies weight loss ENT Denies headache(s) Card Denies chest pain, Denies syncope, Denies irregular heart rhythm and Denies dyspnea Resp Denies chest congestion, Denies cough and Denies dyspnea GI Denies abdominal pain, Denies change in stool character, Denies nausea and Denies vomiting Musc Denies deformity and Denies joint swelling Neuro Denies syncope and Denies headache(s) Physical exam (Primary Care) Vital Signs: Last Vital Signs Pulse 70 09/26/23 11:07 BP 136/86 09/26/23 11:07 Pulse Ox 99 09/26/23 11:07 Oxygen Delivery Method Room Air 09/26/23 11:07 BMI result Body Mass Index 26.3 Tobacco/Smoking Status: Tobacco use Status Tobacco use date assessed 09/26/23 09/26/23 11:09 Patient Tobacco Use Status Never used Tobacco 09/26/23 11:09 e-Cigarette/Vaping Use Never Used 09/26/23 11:09 PHQ-9: PHQ-9 Score PHQ-9: Total score 0 09/26/23 11:09 Depression Screening Interpretation: Negative Thrive Assessment: Date of Thrive Assessment Date Thrive assessed 09/26/23 09/26/23 11:09 Const General: cooperative, comfortable, no acute distress and alert Neck Neck: Yes no lymphadenopathy Thyroid: Thyroid normal Resp Effort & Inspection: normal respiratory effort Auscultation: clear to auscultation bilaterally Percussion: percussion normal Cardio Jugular venous distension: no JVD Palpation: normal PMI Rate: regular rate Rhythm: regular rhythm Heart sounds: S1 normal heart sound present and S2 normal heart sound present GI Inspection: Yes normal to inspection Palpation (GI): No hepatosplenomegaly present Skin General skin exam: no rashes or lesions noted Extrem General: Yes no clubbing, cyanosis or edema Assessment and Plan Assessment & Plan (1) Foot pain: Code(s): M79.673 - Pain in unspecified foot Plan: xr and uric acid Orders: Orders Uric Acid Today M10.9 - Gout, unspecified XR foot LT 2V Today M79.672 - Pain in left foot XR foot RT 2V Today M79.673 - Pain in unspecified foot Coding Level of Care Code Est Pt Level 3 (32968) Diagnoses Foot pain M79.673 Additional Codes GABINO-7 Assessment Billing - GABINO-7 Assessment Tool: GABINO-7 Assessment 08803 ([id number])
== END 2023-09-26 11:47 | disposition home or self-care (01) ==
PROVIDERS: PCP Internal Medicine; Visit Provider Internal Medicine
DX: M79.673 Pain in unspecified foot (principal)
CPT/HCPCS: 99213

== ENCOUNTER 2023-09-26 12:10 | Outpatient (REF) | payer MEDICARE, SELFPAY ==
--- NOTE | ~2023-09-26 | XR_ITS ---
EXAMINATION: XR FOOT, RIGHT CLINICAL INFORMATION: Pain and swelling. COMPARISON: None available. TECHNIQUE: AP, lateral, and oblique views of the right foot. FINDINGS: Bony alignment and mineralization are normal. No fracture, dislocation or right ankle joint effusion is seen. Boehler's angle is normal. There are moderate posterior and small plantar calcaneal spurs. There is degenerative calcifications of the Achilles tendon insertion onto the posterior surface of the calcaneus. There is mild bunion formation of the first metatarsal head. No focal soft tissue swelling, gas or foreign body is seen. XR/XR foot LT 2V IMPRESSION: 1. No fracture, dislocation or right ankle joint effusion is seen. 2. There are moderate calcaneal spurs. 3. There are degenerative changes of the Achilles tendon insertion. 4. There is mild bunion formation. EXAMINATION: XR FOOT, LEFT CLINICAL INFORMATION: Pain and swelling. COMPARISON: None available. TECHNIQUE: AP, lateral, and oblique views of the left foot. FINDINGS: Bony alignment and mineralization are normal. No fracture, dislocation or right ankle joint effusion is seen. Boehler's angle is normal. There are moderately large posterior and plantar calcaneal spurs. There are calcifications of the plantar aponeurosis. There is very mild osteoarthritic change of the first metatarsophalangeal joint. No focal soft tissue swelling, gas or foreign body is seen. IMPRESSION: 1. No fracture, dislocation or left ankle joint effusion is seen. 2. There are moderately large calcaneal spurs. 3. There is chronic, calcific plantar fasciitis. 4. There is very mild osteoarthritic change of the left first metatarsophalangeal joint.
--- NOTE | ~2023-09-26 | XR_ITS ---
EXAMINATION: XR FOOT, RIGHT CLINICAL INFORMATION: Pain and swelling. COMPARISON: None available. TECHNIQUE: AP, lateral, and oblique views of the right foot. FINDINGS: Bony alignment and mineralization are normal. No fracture, dislocation or right ankle joint effusion is seen. Boehler's angle is normal. There are moderate posterior and small plantar calcaneal spurs. There is degenerative calcifications of the Achilles tendon insertion onto the posterior surface of the calcaneus. There is mild bunion formation of the first metatarsal head. No focal soft tissue swelling, gas or foreign body is seen. XR/XR foot RT 2V IMPRESSION: 1. No fracture, dislocation or right ankle joint effusion is seen. 2. There are moderate calcaneal spurs. 3. There are degenerative changes of the Achilles tendon insertion. 4. There is mild bunion formation. EXAMINATION: XR FOOT, LEFT CLINICAL INFORMATION: Pain and swelling. COMPARISON: None available. TECHNIQUE: AP, lateral, and oblique views of the left foot. FINDINGS: Bony alignment and mineralization are normal. No fracture, dislocation or right ankle joint effusion is seen. Boehler's angle is normal. There are moderately large posterior and plantar calcaneal spurs. There are calcifications of the plantar aponeurosis. There is very mild osteoarthritic change of the first metatarsophalangeal joint. No focal soft tissue swelling, gas or foreign body is seen. IMPRESSION: 1. No fracture, dislocation or left ankle joint effusion is seen. 2. There are moderately large calcaneal spurs. 3. There is chronic, calcific plantar fasciitis. 4. There is very mild osteoarthritic change of the left first metatarsophalangeal joint.
[2023-09-26 14:08] LABS: Uric Acid 10.1 mg/dL (2.4-5.7)
== END 2023-09-26 12:11 | disposition home or self-care (01) ==
LOC: HO.XRAY 12:10
PROVIDERS: PCP Internal Medicine; Visit Provider Internal Medicine
DX: M79.672 Pain in left foot (principal); M79.671 Pain in right foot; M10.9 Gout, unspecified
CPT/HCPCS: 36415; 73620; 84550

== ENCOUNTER 2023-11-20 07:50 | Outpatient (REF) | payer MEDICARE, SELFPAY ==
--- NOTE | ~2023-11-20 | MM_ITS ---
EXAMINATION: MM SCREENING DIGITAL BREAST TOMOSYNTHESIS, BILATERAL CLINICAL INFORMATION: Screening. Asymptomatic. COMPARISON: Mammography: 11/17/2022, 11/11/2021, and exams dating back to 2016. TECHNIQUE: Digital breast tomosynthesis is performed in both the craniocaudal and mediolateral oblique views along with computer-aided detection (CAD). Synthesized 2D images are generated from the tomosynthesis. Added left full-field MLO view for anterior compression. FINDINGS: There are scattered areas of fibroglandular density (ACR BI-RADS breast composition Category b). There are benign dystrophic calcifications in the right greater than left breasts, outer aspects, unchanged. There are no suspicious grouped pleomorphic calcifications. There is a stable circumscribed mass measuring just under a centimeter in the upper slightly outer right breast middle one third. Parenchymal pattern is unchanged from prior exams. There are no developing masses or areas of architectural distortion. There are no skin or axillary abnormalities. MM/MM tomosynthesis screening BI IMPRESSION: No mammographic evidence of malignancy. Stable benign findings. ASSESSMENT: BI-RADS BI-RADS 2 - Benign Findings RECOMMENDATION: Routine annual mammography screening. 1 year F/U This examination should not preclude the clinical evaluation of a suspicious palpable abnormality. This patient's information was entered into a reminder system with a target due date for their next mammogram.
== END 2023-11-20 07:51 | disposition home or self-care (01) ==
LOC: HO.MAMMO 07:50
PROVIDERS: PCP Internal Medicine; Visit Provider Internal Medicine
DX: Z12.31 Encounter for screening mammogram for malignant neoplasm of breast (principal)
CPT/HCPCS: 77063; 77067

== ENCOUNTER → 2023-11-20 08:00 | Outpatient (BNV) | payer MEDICARE, SELFPAY | PROVIDERS: PCP Internal Medicine; Visit Provider Radiology Diagnostic Radiology | DX: Z12.31 Encounter for screening mammogram for malignant neoplasm of breast (principal) | CPT/HCPCS: 77063; 77067 ==

== ENCOUNTER 2023-12-27 08:25 | Outpatient (AMB) | payer MEDICARE, SELFPAY ==
[2023-12-27 08:34] VITALS: BP 150/82; PULSE 74; O2SAT 92; BMI 26.9
--- NOTE | 2023-12-27 08:34 | MHC.PC.OV ---
Vital Signs 12/27/23 08:34 Height 5 ft 7 in Weight 172 lb BMI 26.9 BP 150/82 H Blood Pressure Location Lt brachial Position Sitting Pulse 74 Pulse Source Pulse Oximeter Pulse Oximetry (%) 92 Oxygen Delivery Method Room Air Intake Visit Reasons: 3mth f/u Bus Repair Supervisor Required: No Wireless Cellular Technician: Not Required per policy Accompanied by: Self / Same As Patient Allergies morphine [MORPHINE] Allergy (Unknown, Verified 12/27/23 08:35) HEART STOPS Medication List - Last Reconciled 12/28/23 by Todd Sanchez MD alendronate 70 mg PO TH apixaban (Eliquis) 5 mg PO DAILY 30 days atorvastatin 20 mg PO BEDTIME biotin 5 mg PO DAILY byadjonvwn-hsrycqejcjjxv-hidx 50-300-40 mg (Fioricet) 1 cap PO Q8H PRN caffeine 200 mg PO DAILY PRN captopril 25 mg PO TID 90 days cholecalciferol (vitamin D3) 25 mcg PO DAILY doxycycline hyclate 100 mg PO BID 6 days gabapentin 100 mg PO BID 2 weeks hydrochlorothiazide 25 mg PO DAILY levothyroxine 250 mcg PO CARVAJAL levothyroxine 125 mcg PO MOTUWETHFRSA meclizine 25 mg PO BID meclizine 25 mg PO DAILY@1600 PRN methylprednisolone (Medrol (Jonny)) PO PER PKG DIR metoprolol tartrate 100 mg PO BID multivitamin 1 tab PO DAILY raloxifene 60 mg PO DAILY Tobacco use date assessed: 09/26/23 Fall risk assessment: No Falls in past year Last assessed Fall Risk: 12/27/23 Dental Screening Dental Screen Date: 09/26/23 HPI 3mth f/u HPI Details hyperlipidemia; hypothyroidis amd HTN; stable on meds; [facility] Medical History COVID-19 vaccine series completed Fatty liver Hypothyroidism Menieres disease Osteoarthritis On beta danni at home On anticoagulant therapy Hx of deep venous thrombosis History of diverticulitis Hyperlipidemia Hypertension Surgical History Hx of colonoscopy History of lumpectomy of right breast History of knee replacement procedure of right knee History of arthroscopy of both knees History of tubal ligation Family History Father Past heart attack CAD (coronary artery disease) Mother Diabetes Meniere disease Son No problems noted. Social History Household Members: Spouse Housing: House Are you a primary rn complex care to a significant other at home: No Do you presently have visiting nurse or other home services: No Alcohol intake: never Comment: uses walker prn Patient Tobacco Use Status: Never used Tobacco e-Cigarette/Vaping Use: Never Used Second Hand Smoke Exposure: No service: No Current occupational status: retired Cognitive needs: No Hearing needs: No Vision needs: Yes (glasses) Questionnaire Thrive Questionnaire Date Thrive assessed: 09/26/23 GABINO-7 AMB Questionnaire GABINO-7 Date GABINO - 7 assessed: 09/26/23 Source: Developed by Drs. Tapan Raines, Georgina Hanna, Larry Lux and colleagues, with an educational mora from [employer]. Review of Systems Const Denies chills, Denies headache(s) and Denies weight loss ENT Denies headache(s) Card Denies chest pain, Denies syncope, Denies irregular heart rhythm and Denies dyspnea Resp Denies chest congestion, Denies cough and Denies dyspnea GI Denies abdominal pain, Denies change in stool character, Denies nausea and Denies vomiting Musc Denies deformity and Denies joint swelling Neuro Denies syncope and Denies headache(s) Physical exam (Primary Care) Vital Signs: Last Vital Signs Pulse 74 12/27/23 08:34 BP 150/82 H 12/27/23 08:34 Pulse Ox 92 12/27/23 08:34 Oxygen Delivery Method Room Air 12/27/23 08:34 BMI result Body Mass Index 26.9 Tobacco/Smoking Status: Tobacco use Status Tobacco use date assessed 09/26/23 12/27/23 08:35 Patient Tobacco Use Status Never used Tobacco 12/27/23 08:35 e-Cigarette/Vaping Use Never Used 12/27/23 08:35 Thrive Assessment: Date of Thrive Assessment Date Thrive assessed 09/26/23 12/27/23 08:35 Const General: cooperative, comfortable, no acute distress and alert Neck Neck: Yes no lymphadenopathy Thyroid: Thyroid normal Resp Effort & Inspection: normal respiratory effort Auscultation: clear to auscultation bilaterally Percussion: percussion normal Cardio Jugular venous distension: no JVD Palpation: normal PMI Rate: regular rate Rhythm: regular rhythm Heart sounds: S1 normal heart sound present and S2 normal heart sound present GI Inspection: Yes normal to inspection Palpation (GI): No hepatosplenomegaly present Skin General skin exam: no rashes or lesions noted Extrem General: Yes no clubbing, cyanosis or edema Assessment and Plan Assessment & Plan (1) Hypothyroidism: Code(s): E03.9 - Hypothyroidism, unspecified Plan: stable; same rx (2) Hyperlipidemia: Code(s): E78.5 - Hyperlipidemia, unspecified Plan: stable; same rx (3) Hypertension: Code(s): I10 - Essential (primary) hypertension Plan: stable; same rx Orders: Orders Lipid Panel 12/27/23 Z13.220 - Encounter for screening for lipoid disorders Complete Blood Count Auto Diff 12/27/23 Z13.0 - Encounter for screening for diseases of the blood and blood-forming organs and certain disorders involving the immune mechanism [facility] [place]. Panel Fast 12/27/23 Z13.9 - Encounter for screening, unspecified Thyroid Stimulating Hormone 12/27/23 Z13.29 - Encounter for screening for other suspected endocrine disorder Uric Acid 12/27/23 M10.9 - Gout, unspecified Coding Level of Care Code Est Pt Level 4 (94499) Diagnoses Hypothyroidism E03.9 Hyperlipidemia E78.5 Hypertension I10
== END 2023-12-27 09:10 | disposition home or self-care (01) ==
PROVIDERS: PCP Internal Medicine; Visit Provider Internal Medicine
DX: E03.9 Hypothyroidism, unspecified (principal); E78.5 Hyperlipidemia, unspecified; I10 Essential (primary) hypertension
CPT/HCPCS: 99214

== ENCOUNTER 2024-03-25 06:29 | Outpatient (REF) | payer MEDICARE, SELFPAY ==
[2024-03-25 06:48] LABS: MANUAL DIFF FLAG NO
[2024-03-25 07:31] LABS: Basophils Absolute Auto 0.1 X10*3/uL (0.0-0.2); Basophils Percent Auto 0.7 % (0-2); Eosinophils Absolute Auto 0.2 X10*3/uL (0.0-0.4); Eosinophils Percent Auto 2.5 % (0-4); Hemoglobin 13.2 g/dl (12.0-16.0); Imm Gran Abs Auto 0.05 X10*3/uL (0.00-0.03); Imm Gran Pct Auto 0.6 % (0.0-0.4); Lymphocytes Absolute Auto 2.6 X10*3/uL (1.2-4.9); Lymphocytes Percent Auto 30.3 % (20-40); Mean Corpuscular HGB Conc 33.8 g/dl (31.0-35.0); Mean Corpuscular Hemoglobin 31.4 pg (27.0-33.0); Mean Corpuscular Volume 92.6 fL (80.0-98.0); Monocytes Absolute Auto 0.6 X10*3/uL (0.1-1.2); Monocytes Percent Auto 7.3 % (2-11); Neutrophils Percent Auto 58.6 % (45-73); Platelet Count 241 X10*3/uL (160-400); Red Blood Count 4.21 X10*6/uL (4.20-5.50); Red Cell Distribution Width 11.9 % (11.0-16.0); White Blood Count 8.5 X10*3/uL (4.8-10.8)
[2024-03-25 08:04] LABS: Alanine Aminotransferase 21 U/L (0-31); Albumin Level 3.9 g/dL (3.5-5.0); Alkaline Phosphatase 68 U/L (39-117); Anion Gap 17 (12-20); Aspartate Amino Transferase 16 U/L (5-31); Bilirubin Total 0.3 mg/dL (0.0-1.0); Blood Urea Nitrogen 31 mg/dL (9-16); Calcium 9.5 mg/dL (8.4-10.2); Carbon Dioxide 24 mmol/L (22-29); Chloride 106 mmol/L (96-108); Cholesterol 165 mg/dL (<200); Estimated Glomerular Filt Rate 37; Glucose Fasting 127 mg/dL (60-99); HDL Cholesterol 40 mg/dL (>40); LDL Cholesterol Calculated 62 mg/dL (<100); Sodium 143 mmol/L (135-145); Total Protein 7.4 g/dL (6.5-8.0); Triglycerides 318 mg/dL (<150); Uric Acid 9.1 mg/dL (2.4-5.7)
[2024-03-25 08:21] LABS: Thyroid Stimulating Hormone 0.35 uIU/mL (0.32-4.0)
== END 2024-03-25 06:30 | disposition home or self-care (01) ==
LOC: HO.LAB 06:29
PROVIDERS: PCP Internal Medicine; Visit Provider Internal Medicine
DX: Z13.29 Encounter for screening for other suspected endocrine disorder (principal); M10.9 Gout, unspecified; Z13.220 Encounter for screening for lipoid disorders; Z13.0 Encounter for screening for diseases of the blood and blood-forming organs and certain disorders involving the immune mechanism; Z13.9 Encounter for screening, unspecified
CPT/HCPCS: 36415; 80053; 80061; 84443; 84550; 85025

== ENCOUNTER 2024-03-29 08:21 | Outpatient (AMB) | payer MEDICARE, SELFPAY ==
[2024-03-29 08:22] VITALS: BP 140/82; PULSE 78; O2SAT 97
--- NOTE | 2024-03-29 08:22 | A.OFFPC_ITS ---
Vital Signs 03/29/24 08:22 Height 5 ft 7 in BMI Reason not done Patient refused/unable BP 140/82 H Blood Pressure Location Lt brachial Position Sitting Pulse 78 Pulse Source Pulse Oximeter Pulse Oximetry (%) 97 Oxygen Delivery Method Room Air Intake Visit Reasons: 3 Month F/U Intake Note: Patient is here to follow up on 3 months. Hand I Thermal Cutter Required: No Allergies morphine [MORPHINE] Allergy (Unknown, Verified 03/29/24 08:22) HEART STOPS Medication List - Last Reconciled 03/29/24 by Todd Sanchez MD alendronate 70 mg PO TH apixaban (Eliquis) 5 mg PO DAILY 30 days atorvastatin 20 mg PO BEDTIME biotin 5 mg PO DAILY wulfjlcmfh-boheilqpnmpki-ckyg 50-300-40 mg (Fioricet) 1 cap PO Q8H PRN caffeine 200 mg PO DAILY PRN captopril 25 mg PO TID 90 days cholecalciferol (vitamin D3) 25 mcg PO DAILY doxycycline hyclate 100 mg PO BID 6 days gabapentin 100 mg PO BID 2 weeks hydrochlorothiazide 25 mg PO DAILY levothyroxine 250 mcg PO CARVAJAL levothyroxine 125 mcg PO MOTUWETHFRSA meclizine 25 mg PO BID meclizine 25 mg PO DAILY@1600 PRN methylprednisolone (Medrol (Jonny)) PO PER PKG DIR metoprolol tartrate 100 mg PO BID multivitamin 1 tab PO DAILY raloxifene 60 mg PO DAILY Tobacco use date assessed: 09/26/23 Fall risk assessment: No Falls in past year Last assessed Fall Risk: 03/29/24 Dental Screening Dental Screen Date: 09/26/23 HPI 3 Month F/U HPI Details 2 days of chills, cough and myalgias; ex posed to family member with Covid no dyspnea PFSH Medical History COVID-19 vaccine series completed Fatty liver Hypothyroidism Menieres disease Osteoarthritis On beta danni at home On anticoagulant therapy Hx of deep venous thrombosis History of diverticulitis Hyperlipidemia Hypertension Surgical History Hx of colonoscopy History of lumpectomy of right breast History of knee replacement procedure of right knee History of arthroscopy of both knees History of tubal ligation Family History Father Past heart attack CAD (coronary artery disease) Mother Diabetes Meniere disease Son No problems noted. Social History Household Members: Spouse Housing: House Are you a primary respiratory care specialist to a significant other at home: No Do you presently have visiting nurse or other home services: No Alcohol intake: never Comment: uses walker prn Patient Tobacco Use Status: Never used Tobacco e-Cigarette/Vaping Use: Never Used Second Hand Smoke Exposure: No service: No Current occupational status: retired Cognitive needs: No Hearing needs: No Vision needs: Yes (glasses) Questionnaire Thrive Questionnaire Date Thrive assessed: 09/26/23 AUDIT C Alcohol Use Questionnaire (AUDIT-C) 1. How often do you have a drink containing alcohol?: Never 3. How often do you have six or more drinks on one occasion?: Never Total Score: 0 Score Reviewed/Action Taken: Yes GABINO-7 AMB Questionnaire GABINO-7 Date GABINO - 7 assessed: 09/26/23 Source: Developed by Drs. Tapan Raines, Georgina Hanna, Larry Lux and colleagues, with an educational mora from [facility]. Review of Systems Const Denies headache(s) and Denies weight loss ENT Denies headache(s) Card Denies chest pain, Denies syncope, Denies irregular heart rhythm and Denies dyspnea Resp Denies chest congestion and Denies dyspnea GI Denies abdominal pain, Denies change in stool character, Denies nausea and Denies vomiting Musc Denies deformity and Denies joint swelling Neuro Denies syncope and Denies headache(s) Physical exam (Primary Care) Vital Signs: Last Vital Signs Pulse 78 03/29/24 08:22 BP 140/82 H 03/29/24 08:22 Pulse Ox 97 03/29/24 08:22 Oxygen Delivery Method Room Air 03/29/24 08:22 Tobacco/Smoking Status: Tobacco use Status Tobacco use date assessed 09/26/23 03/29/24 08:29 Patient Tobacco Use Status Never used Tobacco 03/29/24 08:29 e-Cigarette/Vaping Use Never Used 03/29/24 08:29 Thrive Assessment: Date of Thrive Assessment Date Thrive assessed 09/26/23 03/29/24 08:29 Const General: cooperative, comfortable, no acute distress and alert Neck Neck: Yes no lymphadenopathy Thyroid: Thyroid normal Resp Effort & Inspection: normal respiratory effort Auscultation: clear to auscultation bilaterally Percussion: percussion normal Cardio Jugular venous distension: no JVD Palpation: normal PMI Rate: regular rate Rhythm: regular rhythm Heart sounds: S1 normal heart sound present and S2 normal heart sound present GI Inspection: Yes normal to inspection Palpation (GI): No hepatosplenomegaly present Skin General skin exam: no rashes or lesions noted Extrem General: Yes no clubbing, cyanosis or edema Assessment and Plan Assessment & Plan (1) Cough: Code(s): R05.9 - Cough, unspecified Plan: covid test; if positive, good candidate for Paxlovid Orders: Orders BinaxNOW Covid-19 Ag Today R68.83 - Chills (without fever) Lipid Panel Today Z13.220 - Encounter for screening for lipoid disorders Thyroid Stimulating Hormone Today Z13.29 - Encounter for screening for other suspected endocrine disorder Coding Level of Care Code Est Pt Level 3 (71770) Diagnoses Cough R05.9
== END 2024-03-29 10:38 | disposition home or self-care (01) ==
PROVIDERS: PCP Internal Medicine; Visit Provider Internal Medicine
DX: R05.9 Cough, unspecified (principal)
CPT/HCPCS: 99213

== ENCOUNTER 2024-03-29 08:51 | Outpatient (REF) | payer MEDICARE, SELFPAY ==
[2024-03-29 09:25] LABS: COVID-19 Test Positive (Negative); IDNOW Serial# 152EDE1D
[2024-03-29 10:55] LABS: Cholesterol 159 mg/dL (<200); HDL Cholesterol 47 mg/dL (>40); LDL Cholesterol Calculated 82 mg/dL (<100); Triglycerides 152 mg/dL (<150)
[2024-03-29 10:57] LABS: Thyroid Stimulating Hormone 0.14 uIU/mL (0.32-4.0)
== END 2024-03-29 08:52 | disposition home or self-care (01) ==
LOC: HO.LAB 08:51
PROVIDERS: PCP Internal Medicine; Visit Provider Internal Medicine
DX: Z13.220 Encounter for screening for lipoid disorders (principal); Z13.6 Encounter for screening for cardiovascular disorders; Z13.29 Encounter for screening for other suspected endocrine disorder; R05.9 Cough, unspecified
CPT/HCPCS: 80061; 84443; 87635

== ENCOUNTER 2024-04-24 09:33 | Outpatient (AMB) | payer MEDICARE, SELFPAY ==
[2024-04-24 09:36] VITALS: BP 146/70; PULSE 73; O2SAT 97; BMI 26.6
--- NOTE | 2024-04-24 09:36 | MHC.PC.OV ---
Vital Signs 04/24/24 09:36 Height 5 ft 7 in Weight 170 lb BMI 26.6 BP 146/70 H Blood Pressure Location Lt brachial Position Sitting Pulse 73 Pulse Source Pulse Oximeter Pulse Oximetry (%) 97 Oxygen Delivery Method Room Air Intake Visit Reasons: Regular Visit Bsa/Aml Compliance Officer Required: No Accompanied by: Self / Same As Patient Allergies morphine [MORPHINE] Allergy (Unknown, Verified 04/24/24 09:36) HEART STOPS Medication List - Last Reconciled 04/24/24 by Todd Sanchez MD alendronate 70 mg PO TH apixaban (Eliquis) 5 mg PO DAILY 30 days atorvastatin 20 mg PO BEDTIME biotin 5 mg PO DAILY zopelowdrh-nzbsgexupvjzs-fzkc 50-300-40 mg (Fioricet) 1 cap PO Q8H PRN caffeine 200 mg PO DAILY PRN captopril 25 mg PO TID 90 days cholecalciferol (vitamin D3) 25 mcg PO DAILY doxycycline hyclate 100 mg PO BID 6 days gabapentin 100 mg PO BID 2 weeks hydrochlorothiazide 25 mg PO DAILY levothyroxine 250 mcg PO CARVAJAL levothyroxine 125 mcg PO MOTUWETHFRSA meclizine 25 mg PO BID meclizine 25 mg PO DAILY@1600 PRN methylprednisolone (Medrol (Jonny)) PO PER PKG DIR metoprolol tartrate 100 mg PO BID multivitamin 1 tab PO DAILY nirmatrelvir-ritonavir 300 mg (150 mg x 2)-100 mg (Paxlovid) take TWO 150 mg tablets of nirmatrelvir with ONE 100 mg tablet of ritonavir twice daily for 5 days orally; raloxifene 60 mg PO DAILY Tobacco use date assessed: 09/26/23 Fall risk assessment: No Falls in past year Last assessed Fall Risk: 04/24/24 Dental Screening Dental Screen Date: 09/26/23 HPI Regular Visit HPI Details sore throat and cough for a week PFSH Medical History COVID-19 vaccine series completed Fatty liver Hypothyroidism Menieres disease Osteoarthritis On beta danni at home On anticoagulant therapy Hx of deep venous thrombosis History of diverticulitis Hyperlipidemia Hypertension Surgical History Hx of colonoscopy History of lumpectomy of right breast History of knee replacement procedure of right knee History of arthroscopy of both knees History of tubal ligation Family History Father Past heart attack CAD (coronary artery disease) Mother Diabetes Meniere disease Son No problems noted. Social History Household Members: Spouse Housing: House Are you a primary daycare director to a significant other at home: No Do you presently have visiting nurse or other home services: No Alcohol intake: never Comment: uses walker prn Patient Tobacco Use Status: Never used Tobacco Tobacco use type: Cigarette e-Cigarette/Vaping Use: Never Used Second Hand Smoke Exposure: No service: No Current occupational status: retired Cognitive needs: No Hearing needs: No Vision needs: Yes (glasses) Questionnaire PHQ-9 Over the last 2 weeks, how often have you been bothered by any of the following problems? 1. Little interest or pleasure in doing things: not at all 2. Feeling down, depressed, or hopeless: not at all 3. Trouble falling or staying asleep, or sleeping too much: not at all 4. Feeling tired or having little energy: not at all 5. Poor appetite or overeating: not at all 6. Feeling bad about yourself - or that you are a failure or have let yourself or your family down: not at all 7. Trouble concentrating on things, such as reading the newspaper or watching television: not at all 8. Moving or speaking so slowly that other people could have noticed. Or the opposite - being so fidgety or restless that you have been moving around a lot more than usual: not at all 9. Thoughts that you would be better off or of hurting yourself in some way: not at all Total score: 0 Depression Screening Interpretation: Negative Depression Screening Done: Yes 47956 - PHQ-9 Billing: Yes Source: Developed by Drs. Tapan Raines, Georgina Hanna, Larry Lux and colleagues, with an educational mora from [employer]. Thrive Questionnaire Date Thrive assessed: 09/26/23 AUDIT C Alcohol Use Questionnaire (AUDIT-C) 1. How often do you have a drink containing alcohol?: Never 3. How often do you have six or more drinks on one occasion?: Never Total Score: 0 Score Reviewed/Action Taken: Yes GABINO-7 AMB Questionnaire GABINO-7 Date GABINO - 7 assessed: 09/26/23 Source: Developed by Drs. Tapan Raines, Georgina Hanna, Larry Lux and colleagues, with an educational mora from [employer]. Review of Systems Const Denies chills, Denies headache(s) and Denies weight loss ENT Denies headache(s) Card Denies chest pain, Denies syncope, Denies irregular heart rhythm and Denies dyspnea Resp Denies chest congestion and Denies dyspnea GI Denies abdominal pain, Denies change in stool character, Denies nausea and Denies vomiting Musc Denies deformity and Denies joint swelling Neuro Denies syncope and Denies headache(s) Physical exam (Primary Care) Vital Signs: Last Vital Signs Pulse 73 04/24/24 09:36 BP 146/70 H 04/24/24 09:36 Pulse Ox 97 04/24/24 09:36 Oxygen Delivery Method Room Air 04/24/24 09:36 BMI result Body Mass Index 26.6 Tobacco/Smoking Status: Tobacco use Status Tobacco use date assessed 09/26/23 04/24/24 09:39 Patient Tobacco Use Status Never used Tobacco 04/24/24 09:39 Tobacco use type Cigarette 04/24/24 09:39 e-Cigarette/Vaping Use Never Used 04/24/24 09:39 PHQ-9: PHQ-9 Score PHQ-9: Total score 0 04/24/24 09:42 Depression Screening Interpretation: Negative Thrive Assessment: Date of Thrive Assessment Date Thrive assessed 09/26/23 04/24/24 09:39 Const General: cooperative, comfortable, no acute distress and alert HENID Head: Yes normal to inspection Neck Neck: Yes no lymphadenopathy Thyroid: Thyroid normal Resp Effort & Inspection: normal respiratory effort Auscultation: clear to auscultation bilaterally Percussion: percussion normal Cardio Jugular venous distension: no JVD Palpation: normal PMI Rate: regular rate Rhythm: regular rhythm Heart sounds: S1 normal heart sound present and S2 normal heart sound present GI Inspection: Yes normal to inspection Palpation (GI): No hepatosplenomegaly present Skin General skin exam: no rashes or lesions noted Extrem General: Yes no clubbing, cyanosis or edema Assessment and Plan Assessment & Plan (1) Sore throat: Code(s): J02.9 - Acute pharyngitis, unspecified Plan: rx sent Medications: New azithromycin take 500 mg today (day 1), then 250 mg for 4 days (days 2-5) PO 6 tabs 0RF Coding Level of Care Code Est Pt Level 3 (64838) Diagnoses Sore throat J02.9
== END 2024-04-24 10:01 | disposition home or self-care (01) ==
PROVIDERS: PCP Internal Medicine; Visit Provider Internal Medicine
DX: J02.9 Acute pharyngitis, unspecified (principal)
CPT/HCPCS: 99213

== ENCOUNTER 2024-07-29 13:49 | Outpatient (AMB) | payer MEDICARE, SELFPAY ==
[2024-07-29 13:51] VITALS: BP 156/80; PULSE 78; O2SAT 98; BMI 27.4
--- NOTE | 2024-07-29 13:51 | A.OFFPC_ITS ---
Vital Signs 07/29/24 13:51 Height 5 ft 7 in Weight 175 lb BMI 27.4 BP 156/80 H Blood Pressure Location Lt brachial Position Sitting Pulse 78 Pulse Source Pulse Oximeter Pulse Oximetry (%) 98 Oxygen Delivery Method Room Air Intake Visit Reasons: 3 Month F/U Allergies morphine [MORPHINE] Allergy (Unknown, Verified 07/29/24 13:52) HEART STOPS Medication List - Last Reconciled 07/30/24 by Todd Sanchez MD alendronate 70 mg PO TH apixaban (Eliquis) 5 mg PO DAILY 30 days atorvastatin 20 mg PO BEDTIME biotin 5 mg PO DAILY mdshbfmghl-nrpmlzzhxqdtz-lrxl 50-300-40 mg (Fioricet) 1 cap PO Q8H PRN caffeine 200 mg PO DAILY PRN captopril 25 mg PO TID 90 days cholecalciferol (vitamin D3) 25 mcg PO DAILY gabapentin 100 mg PO BID 2 weeks hydrochlorothiazide 25 mg PO DAILY levothyroxine 250 mcg PO CARVAJAL levothyroxine 125 mcg PO MOTUWETHFRSA meclizine 25 mg PO BID meclizine 25 mg PO DAILY@1600 PRN methylprednisolone (Medrol (Jonny)) PO PER PKG DIR metoprolol tartrate 100 mg PO BID multivitamin 1 tab PO DAILY nirmatrelvir-ritonavir 300 mg (150 mg x 2)-100 mg (Paxlovid) take TWO 150 mg tablets of nirmatrelvir with ONE 100 mg tablet of ritonavir twice daily for 5 days orally; raloxifene 60 mg PO DAILY Tobacco use date assessed: 09/26/23 Fall risk assessment: No Falls in past year Last assessed Fall Risk: 07/29/24 Dental Screening Dental Screen Date: 09/26/23 HPI 3 Month F/U HPI Details HTN on Rx; doing well; compliant [facility] Medical History COVID-19 vaccine series completed Fatty liver Hypothyroidism Menieres disease Osteoarthritis On beta danni at home On anticoagulant therapy Hx of deep venous thrombosis History of diverticulitis Hyperlipidemia Hypertension Surgical History Hx of colonoscopy History of lumpectomy of right breast History of knee replacement procedure of right knee History of arthroscopy of both knees History of tubal ligation Family History Father Past heart attack CAD (coronary artery disease) Mother Diabetes Meniere disease Son No problems noted. Social History Household Members: Spouse Housing: House Are you a primary health care consultant to a significant other at home: No Do you presently have visiting nurse or other home services: No Alcohol intake: never Comment: uses walker prn Patient Tobacco Use Status: Never used Tobacco Tobacco use type: Cigarette e-Cigarette/Vaping Use: Never Used Second Hand Smoke Exposure: No service: No Current occupational status: retired Cognitive needs: No Hearing needs: No Vision needs: Yes (glasses) Questionnaire Thrive Questionnaire Date Thrive assessed: 09/26/23 AUDIT C Alcohol Use Questionnaire (AUDIT-C) 1. How often do you have a drink containing alcohol?: Never 3. How often do you have six or more drinks on one occasion?: Never Total Score: 0 Score Reviewed/Action Taken: Yes GABINO-7 AMB Questionnaire GABINO-7 Date GABINO - 7 assessed: 09/26/23 Source: Developed by Drs. Tapan Raines, Georgina Hanna, Larry Lux and colleagues, with an educational mora from [employer]. Review of Systems Const Denies chills, Denies headache(s) and Denies weight loss ENT Denies headache(s) Card Denies chest pain, Denies syncope, Denies irregular heart rhythm and Denies d yspnea Resp Denies chest congestion, Denies cough and Denies dyspnea GI Denies abdominal pain, Denies change in stool character, Denies nausea and Den ies vomiting Musc Denies deformity and Denies joint swelling Neuro Denies syncope and Denies headache(s) Physical exam (Primary Care) Vital Signs: Last Vital Signs Pulse 78 07/29/24 13:51 BP 156/80 H 07/29/24 13:51 Pulse Ox 98 07/29/24 13:51 Oxygen Delivery Method Room Air 07/29/24 13:51 BMI result Body Mass Index 27.4 Tobacco/Smoking Status: Tobacco use Status Tobacco use date assessed 09/26/23 07/29/24 13:52 Patient Tobacco Use Status Never used Tobacco 07/29/24 13:52 Tobacco use type Cigarette 07/29/24 13:52 e-Cigarette/Vaping Use Never Used 07/29/24 13:52 Thrive Assessment: Date of Thrive Assessment Date Thrive assessed 09/26/23 07/29/24 13:52 Const General: cooperative, comfortable, no acute distress and alert Neck Neck: Yes no lymphadenopathy Thyroid: Thyroid normal Resp Effort & Inspection: normal respiratory effort Auscultation: clear to auscultation bilaterally Percussion: percussion normal Cardio Jugular venous distension: no JVD Palpation: normal PMI Rate: regular rate Rhythm: regular rhythm Heart sounds: S1 normal heart sound present and S2 normal heart sound present GI Inspection: Yes normal to inspection Palpation (GI): No hepatosplenomegaly present Skin General skin exam: no rashes or lesions noted Extrem General: Yes no clubbing, cyanosis or edema Coding Level of Care Code Est Pt Level 3 (42659) Diagnoses Hypertension I10 Assessment & Plan Assessment & Plan (1) Hypertension: Code(s): I10 - Essential (primary) hypertension Category: Medical Plan: stable; same rx Orders: Orders Lipid Panel 07/29/24 Z13.220 - Encounter for screening for lipoid disorders Thyroid Stimulating Hormone 07/29/24 Z13.29 - Encounter for screening for other suspected endocrine disorder Complete Blood Count Auto Diff 07/29/24 Z13.0 - Encounter for screening for diseases of the blood and blood-forming organs and certain disorders involving the immune mechanism Comprehensive Drury. Panel Fast 07/29/24 Z13.9 - Encounter for screening, unspecified
== END 2024-07-29 14:17 | disposition home or self-care (01) ==
LOC: HO.HMCH 13:49
PROVIDERS: PCP Internal Medicine; Visit Provider Internal Medicine
DX: I10 Essential (primary) hypertension (principal)

== ENCOUNTER → 2024-07-29 13:49 | Outpatient (BNVA) | payer MEDICARE, SELFPAY | PROVIDERS: PCP Internal Medicine; Visit Provider Internal Medicine | DX: I10 Essential (primary) hypertension (principal) | CPT/HCPCS: 99212 ==

== ENCOUNTER 2024-10-23 06:59 | Outpatient (REF) | payer MEDICARE, SELFPAY ==
[2024-10-23 07:20] LABS: MANUAL DIFF FLAG NO
[2024-10-23 07:52] LABS: Basophils Percent Auto 0.4 % (0-2); Eosinophils Absolute Auto 0.2 X10*3/uL (0.0-0.4); Eosinophils Percent Auto 2.9 % (0-4); Hematocrit 36.5 % (37.0-47.0); Hemoglobin 12.5 g/dl (12.0-16.0); Imm Gran Abs Auto 0.03 X10*3/uL (0.00-0.03); Imm Gran Pct Auto 0.4 % (0.0-0.4); Lymphocytes Absolute Auto 1.9 X10*3/uL (1.2-4.9); Lymphocytes Percent Auto 25.8 % (20-40); Mean Corpuscular HGB Conc 34.2 g/dl (31.0-35.0); Mean Corpuscular Hemoglobin 30.9 pg (27.0-33.0); Mean Corpuscular Volume 90.3 fL (80.0-98.0); Mean Platelet Volume 10.9 fL (9.4-12.3); Monocytes Absolute Auto 0.5 X10*3/uL (0.1-1.2); Neutrophils Absolute Auto 4.5 x10*3/uL (2.0-8.3); Neutrophils Percent Auto 63.5 % (45-73); Platelet Count 229 X10*3/uL (160-400); Red Blood Count 4.04 X10*6/uL (4.20-5.50); Red Cell Distribution Width 11.9 % (11.0-16.0); White Blood Count 7.2 X10*3/uL (4.8-10.8)
[2024-10-23 08:22] LABS: Alanine Aminotransferase 15 U/L (0-31); Albumin Level 3.8 g/dL (3.5-5.0); Alkaline Phosphatase 65 U/L (39-117); Anion Gap 14 (12-20); Aspartate Amino Transferase 25 U/L (5-31); Bilirubin Total 0.3 mg/dL (0.0-1.0); Blood Urea Nitrogen 34 mg/dL (9-16); Calcium 9.4 mg/dL (8.4-10.2); Carbon Dioxide 25 mmol/L (22-29); Chloride 110 mmol/L (96-108); Cholesterol 161 mg/dL (<200); Estimated Glomerular Filt Rate 41; Glucose Fasting 133 mg/dL (60-99); HDL Cholesterol 41 mg/dL (>40); LDL Cholesterol Calculated 80 mg/dL (<100); Potassium 4.6 mmol/L (3.3-5.1); Sodium 144 mmol/L (135-145); Total Protein 7.8 g/dL (6.5-8.0); Triglycerides 201 mg/dL (<150)
[2024-10-23 09:01] LABS: Thyroid Stimulating Hormone 0.24 uIU/mL (0.32-4.0)
== END 2024-10-23 07:00 | disposition home or self-care (01) ==
LOC: HO.LAB 06:59
PROVIDERS: PCP Internal Medicine; Visit Provider Internal Medicine
DX: Z13.29 Encounter for screening for other suspected endocrine disorder (principal); Z13.220 Encounter for screening for lipoid disorders; Z13.0 Encounter for screening for diseases of the blood and blood-forming organs and certain disorders involving the immune mechanism; Z13.9 Encounter for screening, unspecified
CPT/HCPCS: 36415; 80053; 80061; 84443; 85025

== ENCOUNTER 2024-10-31 09:41 | Outpatient (AMB) | payer MEDICARE, SELFPAY ==
--- NOTE | 2024-10-31 09:46 | MHC.PC.OV ---
Vital Signs 10/31/24 09:47 Height 5 ft 7 in Weight 173 lb BMI 27.1 BP 148/82 H Pulse 77 Pulse Source Pulse Oximeter Temp 97.3 F Pulse Oximetry (%) 98 Oxygen Delivery Method Room Air Intake Visit Reasons: 3 month f/u Derrick Builder Required: No Accompanied by: Self / Same As Patient Allergies morphine [MORPHINE] Allergy (Unknown, Verified 10/31/24 09:52) HEART STOPS Medication List - Last Reconciled 10/31/24 by Todd Sanchez MD alendronate 70 mg PO TH apixaban (Eliquis) 5 mg PO DAILY 30 days atorvastatin 20 mg PO BEDTIME biotin 5 mg PO DAILY upgssblvjt-wzhofsxljudkj-brfe 50-300-40 mg (Fioricet) 1 cap PO Q8H PRN caffeine 200 mg PO DAILY PRN captopril 25 mg PO TID 90 days cholecalciferol (vitamin D3) 25 mcg PO DAILY gabapentin 100 mg PO BID 2 weeks hydrochlorothiazide 25 mg PO DAILY levothyroxine 250 mcg PO CARVAJAL levothyroxine 125 mcg PO MOTUWETHFRSA meclizine 25 mg PO BID meclizine 25 mg PO DAILY@1600 PRN methylprednisolone (Medrol (Jonny)) PO PER PKG DIR metoprolol tartrate 100 mg PO BID multivitamin 1 tab PO DAILY nirmatrelvir-ritonavir 300 mg (150 mg x 2)-100 mg (Paxlovid) take TWO 150 mg tablets of nirmatrelvir with ONE 100 mg tablet of ritonavir twice daily for 5 days orally; raloxifene 60 mg PO DAILY Tobacco use date assessed: 10/31/24 Fall risk assessment: No Falls in past year Dental Screening Dental Screen Date: 10/31/24 Did you have a dental visit in the last 12 months?: Yes Did you have a dental problem in the last 6 months where you did not have access to dental care?: No HPI 3 month f/u HPI Details hypothyroidism, DVT and hypothyroidism; compiant with med[facility] Medical History COVID-19 vaccine series completed Fatty liver Hypothyroidism Menieres disease Osteoarthritis On beta danni at home On anticoagulant therapy Hx of deep venous thrombosis History of diverticulitis Hyperlipidemia Hypertension Surgical History Hx of colonoscopy History of lumpectomy of right breast History of knee replacement procedure of right knee History of arthroscopy of both knees History of tubal ligation Family History Father Past heart attack CAD (coronary artery disease) Mother Diabetes Meniere disease Son No problems noted. Social History Household Members: Spouse Housing: House Are you a primary care worker to a significant other at home: No Do you presently have visiting nurse or other home services: No Alcohol intake: never Comment: uses walker prn Patient Tobacco Use Status: Never used Tobacco Tobacco use type: Cigarette e-Cigarette/Vaping Use: Never Used Second Hand Smoke Exposure: No service: No Current occupational status: retired Cognitive needs: No Hearing needs: No Vision needs: Yes (glasses) Questionnaire PHQ-9 Over the last 2 weeks, how often have you been bothered by any of the following problems? 1. Little interest or pleasure in doing things: not at all 2. Feeling down, depressed, or hopeless: not at all 3. Trouble falling or staying asleep, or sleeping too much: not at all 4. Feeling tired or having little energy: not at all 5. Poor appetite or overeating: not at all 6. Feeling bad about yourself - or that you are a failure or have let yourself or your family down: not at all 7. Trouble concentrating on things, such as reading the newspaper or watching television: not at all 8. Moving or speaking so slowly that other people could have noticed. Or the opposite - being so fidgety or restless that you have been moving around a lot more than usual: not at all 9. Thoughts that you would be better off or of hurting yourself in some way: not at all Total score: 0 Depression Screening Interpretation: Negative Depression Screening Done: Yes 88636 - PHQ-9 Billing: Yes Source: Developed by Drs. Tapan Raines, Georgina Hanna, Larry Lux and colleagues, with an educational mora from [employer]. Thrive Questionnaire Date Thrive assessed: 09/26/23 I am a: Patient What is your living situation today?: I have a steady place to live Within the past 12 months, did the food you bought not last and you didn't have the money to get more?: Never true Within the past 12 months, did you worry whether your food would run out before you got money to buy more?: Never true Do you have trouble paying for medicines?: No Do you have trouble getting transportation to medical appointments?: No Do you have trouble paying your heating and electricity bill?: No Do you have trouble taking care of your child, family member or friend?: No Do you have trouble with day-to-day activities such as bathing, preparing meals, shopping, managing finances, etc.?: No Are you currently unemployed and looking for a job?: No Are you interested in more education?: No Please select the resources that you would like help with: None THRIVE Score: 0 AUDIT C Alcohol Use Questionnaire (AUDIT-C) 3. How often do you have six or more drinks on one occasion?: Never Total Score: 0 GABINO-7 AMB Questionnaire GABINO-7 Date GABINO - 7 assessed: 10/31/24 Feeling nervous, anxious, or on edge: 0 = Not at all Not being able to stop or control worryin = Not at all Worrying too much about different things: 0 = Not at all Trouble relaxin = Not at all Being so restless that it is hard to sit still: 0 = Not at all Becoming easily annoyed or irritable: 0 = Not at all Feeling afraid as if something awful might happen: 0 = Not at all Total GABINO-7 score (0-4 normal; 5-9 mild; 10-14 moderate; 15-21 severe): 0 Source: Developed by Drs. Tapan Raines, Georgina Hanna, Larry Lux and colleagues, with an educational mora from [employer]. Review of Systems Const Denies chills, Denies headache(s) and Denies weight loss ENT Denies headache(s) Card Denies chest pain, Denies syncope, Denies irregular heart rhythm and Denies dyspnea Resp Denies chest congestion, Denies cough and Denies dyspnea GI Denies abdominal pain, Denies change in stool character, Denies nausea and Denies vomiting Musc Denies deformity and Denies joint swelling Neuro Denies syncope and Denies headache(s) Physical exam (Primary Care) Vital Signs: Last Vital Signs Temp 97.3 F 10/31/24 09:47 Pulse 77 10/31/24 09:47 BP 148/82 H 10/31/24 09:47 Pulse Ox 98 10/31/24 09:47 Oxygen Delivery Method Room Air 10/31/24 09:47 BMI result Body Mass Index 27.1 Tobacco/Smoking Status: Tobacco use Status Tobacco use date assessed 10/31/24 10/31/24 09:56 Patient Tobacco Use Status Never used Tobacco 10/31/24 09:56 Tobacco use type Cigarette 10/31/24 09:56 e-Cigarette/Vaping Use Never Used 10/31/24 09:56 PHQ-9: PHQ-9 Score PHQ-9: Total score 0 10/31/24 09:56 Depression Screening Interpretation: Negative Thrive Assessment: Date of Thrive Assessment Date Thrive assessed 09/26/23 10/31/24 09:56 Const General: cooperative, comfortable, no acute distress and alert Neck Neck: Yes no lymphadenopathy Thyroid: Thyroid normal Resp Effort & Inspection: normal respiratory effort Auscultation: clear to auscultation bilaterally Percussion: percussion normal Cardio Jugular venous distension: no JVD Palpation: normal PMI Rate: regular rate Rhythm: regular rhythm Heart sounds: S1 normal heart sound present and S2 normal heart sound present GI Inspection: Yes normal to inspection Palpation (GI): No hepatosplenomegaly present Skin General skin exam: no rashes or lesions noted Extrem General: Yes no clubbing, cyanosis or edema Coding Level of Care Code Est Pt Level 4 (57588) Diagnoses Hypothyroidism E03.9 Hyperlipidemia E78.5 Hypertension I10 Additional Codes PHQ-9 - 87821 - PHQ-9 Billing: Yes ([id number]) Assessment & Plan Assessment & Plan (1) Hypothyroidism: Code(s): E03.9 - Hypothyroidism, unspecified Category: Medical Plan: stable; same rx (2) Hyperlipidemia: Code(s): E78.5 - Hyperlipidemia, unspecified Category: Medical Plan: stable; same rx (3) Hypertension: Code(s): I10 - Essential (primary) hypertension Category: Medical Plan: stable; same rx
[2024-10-31 09:47] VITALS: BP 148/82; PULSE 77; TEMP 36.3; O2SAT 98; BMI 27.1
== END 2024-10-31 10:22 | disposition home or self-care (01) ==
PROVIDERS: PCP Internal Medicine; Visit Provider Internal Medicine
DX: E03.9 Hypothyroidism, unspecified (principal); E78.5 Hyperlipidemia, unspecified; I10 Essential (primary) hypertension

== ENCOUNTER → 2024-10-31 09:41 | Outpatient (BNVA) | payer MEDICARE, SELFPAY | PROVIDERS: PCP Internal Medicine; Visit Provider Internal Medicine | DX: E03.9 Hypothyroidism, unspecified (principal); E78.5 Hyperlipidemia, unspecified; I10 Essential (primary) hypertension | CPT/HCPCS: 96127; 99212 ==

== ENCOUNTER 2024-11-26 07:56 | Outpatient (REF) | payer MEDICARE, SELFPAY | END 2024-11-26 07:57 | disposition home or self-care (01) | LOC: HO.MAMMO 07:56 | PROVIDERS: PCP Internal Medicine; Visit Provider Internal Medicine | DX: Z12.31 Encounter for screening mammogram for malignant neoplasm of breast (principal) | CPT/HCPCS: 77063; 77067 ==

== ENCOUNTER → 2024-11-26 08:00 | Outpatient (BNV) | payer MEDICARE, SELFPAY | PROVIDERS: PCP Internal Medicine; Visit Provider Internal Medicine | DX: Z12.31 Encounter for screening mammogram for malignant neoplasm of breast (principal) | CPT/HCPCS: 77063; 77067 ==

== ENCOUNTER 2025-01-21 09:05 | Outpatient (AMB) | payer MEDICARE, SELFPAY ==
[2025-01-21 09:08] VITALS: BP 162/100; PULSE 62; O2SAT 98; BMI 26.5
--- NOTE | 2025-01-21 09:08 | A.OFFPC_ITS ---
Vital Signs 01/21/25 09:08 Height 5 ft 7 in Weight 169 lb BMI 26.5 BP 162/100 H Blood Pressure Location Lt brachial Position Sitting Pulse 62 Pulse Source Pulse Oximeter Pulse Oximetry (%) 98 Oxygen Delivery Method Room Air Intake Visit Reasons: [place] 02/04 lt & 02/20 rt Wealth Management Advisor Required: No Accompanied by: Daughter Allergies morphine [MORPHINE] Allergy (Unknown, Verified 01/21/25 09:20) HEART STOPS Medication List - Last Reconciled 01/21/25 by Alisa Crawford MD alendronate 70 mg PO TH apixaban (Eliquis) 5 mg PO DAILY 30 days atorvastatin 20 mg PO BEDTIME biotin 5 mg PO DAILY ylckjadiys-fcdawjckaolem-hizm 50-300-40 mg (Fioricet) 1 cap PO Q8H PRN caffeine 200 mg PO DAILY PRN captopril 25 mg PO TID 90 days cholecalciferol (vitamin D3) 25 mcg PO DAILY gabapentin 100 mg PO BID 2 weeks hydrochlorothiazide 25 mg PO DAILY levothyroxine 250 mcg PO CARVAJAL levothyroxine 125 mcg PO MOTUWETHFRSA meclizine 25 mg PO BID meclizine 25 mg PO DAILY@1600 PRN metoprolol tartrate 100 mg PO BID multivitamin 1 tab PO DAILY raloxifene 60 mg PO DAILY Tobacco use date assessed: 10/31/24 Fall risk assessment: No Falls in past year Last assessed Fall Risk: 01/21/25 Dental Screening Dental Screen Date: 01/21/25 Did you have a dental visit in the last 12 months?: Yes Did you have a dental problem in the last 6 months where you did not have access to dental care?: No Was dental information given to patient?: Patient has dentist HPI HPI Comments History of Present Illness Details The patient is a 74-year-old female presenting with a preoperative evaluation. She is scheduled for a low-risk procedure on February 04 and February 20 for cataract extraction and intraocular lens implant. Her medical history includes essential hypertension, managed with captopril and hydrochlorothiazide, although today her blood pressure was noted to be elevated at 162/100 mmHg, which deviates from her home readings typically around 136/72 mmHg. She has a history of leg DVT which necessitates anticoagulation therapy, currently managed with Eliquis once daily, and queries regarding this regimen were discussed in view of a standard twice-daily administration for her indication by others. The patient also has a history of osteoporosis, diagnosed over ten years ago, managed with alendronate for at least five years. Her last DEXA scan in 2022 was normal. She had diverticulitis diagnosed three years ago, which has led her to follow specific dietary restrictions. Her thyroid function has been labile, requiring adjustments in levothyroxine dosing, with currently prescribed dosages involving varying intake throughout the week. She reports pre-diabetes with an HbA1c of 6.2%, and discussions highlighted the importance of carbohydrate monitoring in conjunction with her dietary restrictions. She also reported sleep disturbances for which she uses cannabis- infused sugar prepared by a friend, noting its effectiveness for her symptoms. EKG and labs pending for medical clearance. Patient has 5-7 Mets of ADLs. Walks with a cane for gait stability due to knee osteoarthritis and loss of balance. [facility] Medical History (Updated 01/21/25 @ 10:12 by Alisa Crawford MD) COVID-19 vaccine series completed Fatty liver Hypothyroidism Menieres disease Osteoarthritis On beta danni at home On anticoagulant therapy Hx of deep venous thrombosis History of diverticulitis Hyperlipidemia Hypertension Surgical History Hx of colonoscopy History of lumpectomy of right breast History of knee replacement procedure of right knee History of arthroscopy of both knees History of tubal ligation Family History Father Past heart attack CAD (coronary artery disease) Mother Diabetes Meniere disease Son No problems noted. Social History Household Members: Spouse Housing: House Are you a primary patient care representative to a significant other at home: No Do you presently have visiting nurse or other home services: No Alcohol intake: never Comment: uses walker prn Patient Tobacco Use Status: Never used Tobacco e-Cigarette/Vaping Use: Never Used Second Hand Smoke Exposure: No service: No Current occupational status: retired Cognitive needs: No Hearing needs: No Vision needs: Yes (glasses) Questionnaire PHQ-9 Over the last 2 weeks, how often have you been bothered by any of the following problems? 1. Little interest or pleasure in doing things: not at all 2. Feeling down, depressed, or hopeless: not at all 3. Trouble falling or staying asleep, or sleeping too much: not at all 4. Feeling tired or having little energy: not at all 5. Poor appetite or overeating: not at all 6. Feeling bad about yourself - or that you are a failure or have let yourself or your family down: not at all 7. Trouble concentrating on things, such as reading the newspaper or watching television: not at all 8. Moving or speaking so slowly that other people could have noticed. Or the opposite - being so fidgety or restless that you have been moving around a lot m ore than usual: not at all 9. Thoughts that you would be better off or of hurting yourself in some way: not at all Total score: 0 Depression Screening Interpretation: Negative Depression Screening Done: Yes 69165 - PHQ-9 Billing: Yes Source: Developed by Drs. Tapan Raines, Georgina Hanna, Larry Lux and colleagues, with an educational mora from [employer]. Thrive Questionnaire Date Thrive assessed: 01/21/25 I am a: Patient What is your living situation today?: I have a steady place to live Within the past 12 months, did the food you bought not last and you didn't have the money to get more?: Never true Within the past 12 months, did you worry whether your food would run out before you got money to buy more?: Never true Do you have trouble paying for medicines?: No Do you have trouble getting transportation to medical appointments?: No Do you have trouble paying your heating and electricity bill?: No Do you have trouble taking care of your child, family member or friend?: No Do you have trouble with day-to-day activities such as bathing, preparing meals, shopping, managing finances, etc.?: No Are you currently unemployed and looking for a job?: No Are you interested in more education?: No Please select the resources that you would like help with: None Currently or been in a relationship where the following occur: No concerns reported THRIVE Score: 0 AUDIT C Alcohol Use Questionnaire (AUDIT-C) 1. How often do you have a drink containing alcohol?: Never Total Score: 0 Score Reviewed/Action Taken: No GABINO-7 AMB Questionnaire GABINO-7 Date GABINO - 7 assessed: 01/21/25 Feeling nervous, anxious, or on edge: 0 = Not at all Not being able to stop or control worryin = Not at all Worrying too much about different things: 0 = Not at all Trouble relaxin = Not at all Being so restless that it is hard to sit still: 0 = Not at all Becoming easily annoyed or irritable: 0 = Not at all Feeling afraid as if something awful might happen: 0 = Not at all Total GABINO-7 score (0-4 normal; 5-9 mild; 10-14 moderate; 15-21 severe): 0 Source: Developed by Drs. Tapan Raines, Georgina Hanna, Larry Lux and colleagues, with an educational mora from [employer]. GABINO-7 Assessment Billing GABINO-7 Assessment Tool: GABINO-7 Assessment 36908 Review of Systems Const All systems reviewed & are unremarkable except as noted in HPI and below Card Denies chest pain at rest, Denies chest pain with activity, Denies edema, Denies irregular heart rhythm, Denies claudication, Denies dyspnea, Denies dyspnea on exertion, Denies orthopnea, Denies paroxysmal nocturnal dyspnea and Denies slow heart rate Resp Denies cough, Denies dyspnea and Denies dyspnea on exertion Physical exam (Primary Care) Vital Signs: Last Vital Signs Pulse 62 01/21/25 09:08 BP 162/100 H 01/21/25 09:08 Pulse Ox 98 01/21/25 09:08 Oxygen Delivery Method Room Air 01/21/25 09:08 BMI result Body Mass Index 26.5 Tobacco/Smoking Status: Tobacco use Status Tobacco use date assessed 10/31/24 01/21/25 09:15 Patient Tobacco Use Status Never used Tobacco 01/21/25 09:15 Tobacco use type 01/21/25 09:15 e-Cigarette/Vaping Use Never Used 01/21/25 09:15 PHQ-9: PHQ-9 Score PHQ-9: Total score 0 01/21/25 09:22 Depression Screening Interpretation: Negative Thrive Assessment: Date of Thrive Assessment Date Thrive assessed 01/21/25 01/21/25 09:15 Currently or been in a relationship where the following occur: No concerns reported Resp Effort & Inspection: normal respiratory effort Auscultation: clear to auscultation bilaterally Cardio Jugular venous distension: no JVD Rate: regular rate Rhythm: regular rhythm Heart sounds: S1 normal heart sound present and S2 normal heart sound present Extrem General: Yes full ROM Results AMB Hemoglobin A1c AMB Hemoglobin A1c 6.2 % Last Edit by RICO Negron on 01/21/25 09:3 0 Coding Level of Care Code Est Pt Level 4 (87792) Complex EM visit Add On G2211 Diagnoses Preop cardiovascular exam Z01.810 Osteoporosis M81.0 Hypothyroidism E03.9 DVT (deep venous thrombosis) I82.409 Essential hypertension I10 Impaired glucose tolerance R73.02 Additional Codes PHQ-9 - 09485 - PHQ-9 Billing: Yes ([id number]) GABINO-7 Assessment Billing - GABINO-7 Assessment Tool: GABINO-7 Assessment 55555 ([id number]) Time Spent (min) 25 Assessment & Plan Assessment & Plan (1) Preop cardiovascular exam: Code(s): Z01.810 - Encounter for preprocedural cardiovascular examination Category: Medical (2) Osteoporosis: Code(s): M81.0 - Age-related osteoporosis without current pathological fracture Category: Medical (3) Hypothyroidism: Code(s): E03.9 - Hypothyroidism, unspecified Category: Medical (4) DVT (deep venous thrombosis): Code(s): I82.409 - Acute embolism and thrombosis of unspecified deep veins of unspecified lower extremity Category: Medical (5) Essential hypertension: Code(s): I10 - Essential (primary) hypertension Category: Medical (6) Impaired glucose tolerance: Code(s): R73.02 - Impaired glucose tolerance (oral) Category: Medical Plan The patient will continue to monitor her blood pressure, with anticipated re- evaluation due to noted elevation. Her anticoagulation regimen with Eliquis remains suitable given her medical history, and further discussion regarding dosage frequency can be entertained with her prescriber. Planning for a DEXA scan is appropriate given her osteoporosis management timeline. Her dietary regimen for pre-diabetes will prioritize carbohydrate awareness. Preparation for her upcoming surgery includes EKG and fasting lab tests, with specified instructions on medication intake for these assessments. Patient was informed and verbally consented to the use of an ambient scribe for clinic note documentation during this visit. I discussed the likely low risk of the upcoming surgical procedure and outlined the necessary preoperative evaluations, which include an EKG and fasting lab tests. The patient expressed understanding of the need to monitor her blood pressure, particularly in light of today's elevation, and acknowledged the requ irement to keep a log of home readings. We clarified the current dosing strategy for Eliquis and noted the absence of bleeding events, with the option to review dosing with her regular provider. The importance of dietary modification for pre-diabetes and hypo-residue diet management for diverticulitis was addressed. Sleeping aid use was also discussed, and the patient agreed on the plan. Anticipatory advice was given regarding exercise and dietary intake for her known medical conditions. Orders: Orders AMB Hemoglobin A1c Today R73.01 - Impaired fasting glucose Lipid Panel Today E78.5 - Hyperlipidemia, unspecified Thyroid Stimulating Hormone Today E03.9 - Hypothyroidism, unspecified Vitamin D 25-OH Total Today E55.9 - Vitamin D deficiency, unspecified ECG 12 lead EKG Today Z01.810 - Encounter for preprocedural cardiovascular examination Comprehensive [place]. Panel Fast Today Z01.810 - Encounter for preprocedural cardiovascular examination Complete Blood Count Auto Diff Today I82.409 - Acute embolism and thrombosis of unspecified deep veins of unspecified lower extremity Patient Instructions: - Monitor your blood pressure at home regularly and record the results. - Follow up on your osteoporosis care and schedule a DEXA scan. - Prepare for pre-op labs by fasting for 8 hours; skip Eliquis before tests. - Maintain your current medication regimen, taking blood pressure medications with water. - Monitor carbohydrate intake to help control blood sugar levels. - Gradually introduce more fiber into your diet to manage diverticulitis and pre-diabetes. - Keep using your current sleep aid if it continues to help you. - Contact us if you experience new symptoms or have concerns before surgery. - Remember your surgery dates: February 04 and February 20.
== END 2025-01-21 09:48 | disposition home or self-care (01) ==
LOC: HO.HMCH 09:05
PROVIDERS: PCP Internal Medicine; Visit Provider Internal Medicine
DX: Z01.810 Encounter for preprocedural cardiovascular examination (principal); M81.0 Age-related osteoporosis without current pathological fracture; E03.9 Hypothyroidism, unspecified; I82.409 Acute embolism and thrombosis of unspecified deep veins of unspecified lower extremity; I10 Essential (primary) hypertension; R73.02 Impaired glucose tolerance (oral); R73.01 Impaired fasting glucose

== ENCOUNTER → 2025-01-21 09:05 | Outpatient (BNVA) | payer MEDICARE, SELFPAY | PROVIDERS: PCP Internal Medicine; Visit Provider Internal Medicine | DX: Z01.810 Encounter for preprocedural cardiovascular examination (principal); I82.409 Acute embolism and thrombosis of unspecified deep veins of unspecified lower extremity; I10 Essential (primary) hypertension; M81.0 Age-related osteoporosis without current pathological fracture; E03.9 Hypothyroidism, unspecified; R73.03 Prediabetes; R73.02 Impaired glucose tolerance (oral); Z79.01 Long term (current) use of anticoagulants; Z79.899 Other long term (current) drug therapy | CPT/HCPCS: 83036; 96127; 99212 ==

== ENCOUNTER → 2025-01-22 06:58 | Outpatient (REF) | payer MEDICARE, SELFPAY ==
[2025-01-22 07:26] LABS: MANUAL DIFF FLAG NO
--- NOTE | 2025-01-22 07:44 | ECG_ITS ---
Test Reason : preop Blood Pressure : */* mmHG Vent. Rate : 67 BPM Atrial Rate : 67 BPM P-R Int : 182 ms QRS Dur : 78 ms QT Int : 422 ms P-R-T Axes : 48 -14 52 degrees QTcB Int : 445 ms Normal sinus rhythm Normal ECG When compared with ECG of 18-Jul-2023 12:01, Criteria for Septal infarct are no longer Present Nonspecific T wave abnormality no longer evident in Anterior leads Referred By: Alisa Crawford Electronically Signed By: JAZZMINE NEWBY MD
[2025-01-22 07:52] LABS: Basophils Percent Auto 0.6 % (0-2); Eosinophils Absolute Auto 0.2 X10*3/uL (0.0-0.4); Eosinophils Percent Auto 2.8 % (0-4); Hematocrit 37.4 % (37.0-47.0); Hemoglobin 12.6 g/dl (12.0-16.0); Imm Gran Abs Auto 0.04 X10*3/uL (0.00-0.03); Imm Gran Pct Auto 0.6 % (0.0-0.4); Lymphocytes Absolute Auto 1.8 X10*3/uL (1.2-4.9); Lymphocytes Percent Auto 27.2 % (20-40); Mean Corpuscular HGB Conc 33.7 g/dl (31.0-35.0); Mean Corpuscular Volume 92.1 fL (80.0-98.0); Mean Platelet Volume 10.5 fL (9.4-12.3); Monocytes Absolute Auto 0.5 X10*3/uL (0.1-1.2); Neutrophils Absolute Auto 3.9 x10*3/uL (2.0-8.3); Neutrophils Percent Auto 60.8 % (45-73); Platelet Count 265 X10*3/uL (160-400); Red Blood Count 4.06 X10*6/uL (4.20-5.50); Red Cell Distribution Width 11.8 % (11.0-16.0); White Blood Count 6.5 X10*3/uL (4.8-10.8)
[2025-01-22 08:21] LABS: Alanine Aminotransferase 16 U/L (0-31); Alkaline Phosphatase 65 U/L (39-117); Anion Gap 13 (12-20); Aspartate Amino Transferase 21 U/L (5-31); Bilirubin Total 0.4 mg/dL (0.0-1.0); Blood Urea Nitrogen 36 mg/dL (9-16); Carbon Dioxide 25 mmol/L (22-29); Chloride 107 mmol/L (96-108); Cholesterol 166 mg/dL (<200); Estimated Glomerular Filt Rate 32; Glucose Fasting 131 mg/dL (60-99); HDL Cholesterol 41 mg/dL (>40); LDL Cholesterol Calculated 88 mg/dL (<100); Potassium 4.2 mmol/L (3.3-5.1); Sodium 141 mmol/L (135-145); Total Protein 7.3 g/dL (6.5-8.0); Triglycerides 186 mg/dL (<150)
[2025-01-22 08:38] LABS: Thyroid Stimulating Hormone 0.38 uIU/mL (0.32-4.0)
== END ==
LOC: HO.CARD 06:58
PROVIDERS: PCP Internal Medicine; Visit Provider Internal Medicine
DX: Z01.810 Encounter for preprocedural cardiovascular examination (principal); E55.9 Vitamin D deficiency, unspecified; E03.9 Hypothyroidism, unspecified; E78.5 Hyperlipidemia, unspecified; Z86.718 Personal history of other venous thrombosis and embolism
CPT/HCPCS: 36415; 80053; 80061; 82306; 84443; 85025; 93005

== ENCOUNTER → 2025-01-22 07:44 | Outpatient (BNV) | payer MEDICARE, SELFPAY | PROVIDERS: PCP Internal Medicine; Visit Provider Internal Medicine Cardiovascular Disease | DX: Z01.818 Encounter for other preprocedural examination (principal) | CPT/HCPCS: 93010 ==

== ENCOUNTER 2025-02-11 10:44 | Outpatient (AMB) | payer MEDICARE, SELFPAY ==
--- NOTE | 2025-02-11 10:45 | MHC.OFFWIV ---
Intake Vital Signs 02/11/25 10:46 Height 5 ft 7 in Weight 162 lb BMI 25.4 BP 136/90 H Blood Pressure Location Lt brachial Position Sitting Pulse 69 Pulse Source Pulse Oximeter Temp 97.7 F Temp Source Oral Pulse Oximetry (%) 97 Oxygen Delivery Method Room Air Intake Visit Reasons: EP-lt hand pinky finger swollen & pain Intake Note: Pt presents to the office today for c/o left hand pinky finger swollen and painful x1 day. Pt denies any injury to her finger. Patient Tobacco Use Status: Never used Tobacco Accompanied by: Daughter Allergies morphine [MORPHINE] Allergy (Unknown, Verified 02/11/25 10:49) HEART STOPS Do you need a note to return to daycare/school/sports/work: No HPI HPI Comments History of Present Illness Details History of Present Illness - The patient is a 74-year-old female presenting with pain and tenderness in the left pinky finger joint. - The patient reports significant tenderness in the left pinky finger joint, describing it as feeling like it might blow off the end. - There is no drainage from the nail bed, and the patient frequently changes nail thai, does not go to a salon. - The patient suspects gout, although previous uric acid tests were normal, and she has no dietary habits typically associated with gout. - The patient has a history of osteoarthritis, with symptoms exacerbated by weather changes, causing swelling and pain in multiple joints. Physical Exam General: Cooperative, healthy appearing, comfortable, no acute distress and well developed Orientation: Patient oriented x3 Limitations: No limitations Head: Normal to inspection Ears: Hearing grossly normal bilaterally Nose: Normal External nose present Face and sinus: Normal facial exam Eyes: Appearance normal, both eyes and all related structures Neck: Normal visual inspection and Yes full ROM Respiratory: Normal respiratory effort and able to speak in complete sentences. Skin: No rashes or lesions noted Neuro: Patient oriented x3 Extremities: left 5th digit DIP TTP with erythema and edema. No drainage at nailbed, no flutucance. [facility] Medical History (Updated 02/11/25 @ 11:36 by Marie Velarde PA-C) COVID-19 vaccine series completed Fatty liver Hypothyroidism Menieres disease Osteoarthritis On beta danni at home On anticoagulant therapy Hx of deep venous thrombosis History of diverticulitis Hyperlipidemia Hypertension Surgical History Hx of colonoscopy History of lumpectomy of right breast History of knee replacement procedure of right knee History of arthroscopy of both knees History of tubal ligation Family History Father Past heart attack CAD (coronary artery disease) Mother Diabetes Meniere disease Son No problems noted. Social History Household Members: Spouse Housing: House Are you a primary health care marketing manager to a significant other at home: No Do you presently have visiting nurse or other home services: No Alcohol intake: never Comment: uses walker prn Patient Tobacco Use Status: Never used Tobacco e-Cigarette/Vaping Use: Never Used Second Hand Smoke Exposure: No service: No Current occupational status: retired Cognitive needs: No Hearing needs: No Vision needs: Yes (glasses) Review of Systems Const All systems reviewed & are unremarkable except as noted in HPI and below Physical Exam Vital Signs: Last Vital Signs Temp 97.7 F 02/11/25 10:46 Pulse 69 02/11/25 10:46 BP 136/90 H 02/11/25 10:46 Pulse Ox 97 02/11/25 10:46 Oxygen Delivery Method Room Air 02/11/25 10:46 BMI result Body Mass Index 25.4 Assessment & Plan Assessment & Plan (1) Osteoarthritis: Code(s): M19.90 - Unspecified osteoarthritis, unspecified site Qualifiers: Osteoarthritis location: hand Osteoarthritis type: unspecified Laterality: left Qualified Code(s): M19.042 - Primary osteoarthritis, left hand Plan: Plan - Prescribe a short course of prednisone to address inflammation, with instructions to discontinue if symptoms resolve quickly. - Will repeat uric acid testing to rule out gout, given the patient's history and current symptoms. - Monitor for any signs of infection in the nail bed, although current examination shows no drainage, unlikely paronychia. Patient was informed and verbally consented to the use of an ambient scribe for clinic note documentation during this visit. (2) Painful swelling of joint: Code(s): M25.40 - Effusion, unspecified joint Plan: as above Orders: Orders Uric Acid Today M25.40 - Effusion, unspecified joint Medications: New prednisone 20 mg PO QAM 5 tabs 0RF Coding Level of Care Code Est Pt Level 3 (11191) Diagnoses Osteoarthritis of left hand, unspecified osteoarthritis type M19.042 Osteoarthritis location: hand Osteoarthritis type: unspecified Laterality: left Painful swelling of joint M25.40
[2025-02-11 10:46] VITALS: BP 136/90; PULSE 69; TEMP 36.5; O2SAT 97; BMI 25.4
== END 2025-02-11 11:48 | disposition home or self-care (01) ==
PROVIDERS: PCP Internal Medicine; Visit Provider Physician Assistant
DX: M19.042 Primary osteoarthritis, left hand (principal); M25.40 Effusion, unspecified joint

== ENCOUNTER 2025-02-11 10:44 | Outpatient (REF) | payer MEDICARE, SELFPAY | END 2025-02-11 10:45 | disposition home or self-care (01) | LOC: HO.HMGCLDS 10:44 | PROVIDERS: PCP Internal Medicine; Visit Provider Physician Assistant | DX: M25.442 Effusion, left hand (principal); M19.042 Primary osteoarthritis, left hand | CPT/HCPCS: 36415; 84550; 99212 ==

== ENCOUNTER 2025-04-02 12:55 | Outpatient (REF) | payer MEDICARE, SELFPAY ==
--- NOTE | ~2025-04-02 | US_ITS ---
CLINICAL HISTORY: RIGHT LEG - CHRONIC DVT Right lower extremity venous duplex ultrasound. Comparison: None Findings: Exam was performed using grayscale ultrasound with assistance of color and spectral Doppler. The right common femoral, duplicated femoral, popliteal, and deep femoral veins as well as left common femoral vein are normally compressible with spontaneous phasic flow, right popliteal vein augmentation response was assessed and appears normal. Visualized right calf veins are patent. Right greater saphenous vein is unremarkable. No Valencia's cyst is visualized. Impression: No deep vein thrombosis of right lower extremity. This document has been electronically signed by: Dali Goff MD on 04/02/2025 15:17:39
--- OUTSIDE RECORDS SUMMARY | 2025-04-02 06:00 | XMS_ITS ---
Author Organization [facility] Address [address] [place] [address] Care Team Providers Care Steel Detailer Name Role Phone Finn Egan Primary Care Provider Finn Egan Unavailable Unavailable ALLERGIES Allergen (clinical drug ingredient) Drug/Non Drug Allergy documented on EMR Reaction Allergy Type Onset Date Status morphine Morphine Unknown Drug Allergy Active REASON FOR VISIT (IN OFFICE), New Patient MEDICATIONS Medication SIG (Take, Route, Frequency, Duration) Notes Start Date End Date Status Levothyroxine Sodium 125 MCG TAKE 1 TABL ET BY MOUTH EVERY MONDAY, MONDAY, MONDAY, MONDAY, MONDAY, AND MONDAY. Oral Active Captopril 25 MG 1 tablet 1 hour befo re or 2 hours after meals Orally 3 times a day Active Atorvastatin Calcium 20 MG Oral Active Metoprolol Tartrate 100 MG TAKE ONE TABL ET BY MOUTH TWICE A DAY Oral Active hydroCHLOROthiazide 25 MG 1 tablet in morning Orally Once a day Active Eliquis 5 MG TAKE ONE TABLET BY MOUTH EVERY DAY Oral Active Raloxifene HCl 60 MG TAKE ONE TABLET BY MOUTH EVERY DAY Oral Active Meclizine HCl 25 MG 1 tablet as needed Orally every 12 hrs Active SOCIAL HISTORY Tobacco Use: Social History Observation Description Date Details (start date - stop date) Never Smoker NA - NA Sex Assigned At : Social History Observation Description Sex Assigned At Unknown Tobacco Use/Smoking Question Answer Notes Are you a nonsmoker Alcohol Screen Question Answer Notes Did you have a drink containing alcohol in the p ast year? No Points 0 Interpretation Negative PROBLEMS Problem Type ICD Code Onset Dates Problem Status W/U Status Risk SNOMED Code Notes Problem Essential hypertension (I10) Active confirmed 26199273 Problem Acquired hypothyroidism (E03.9) Active confirmed 293734657 Problem Postmenopausal osteoporosis (M81.0) Active confirmed 463416766 Problem Chronic deep vein thrombosis (DVT) of femoral vein of right lower extremity (I82.511) Active confirmed 184948950408583 Problem Primary osteoarthritis involving multiple joints (M15.0) Active confirmed 783545344 Problem Mixed hyperlipidemia (E78.2) Active confirmed 420901840 VITAL SIGNS Blood pressure systolic 170 mm Hg 04/02/20 25 Blood pressure diastolic 82 mm Hg 025 Heart Rate 80 /min 04/02/2025 Height 68 in 04/02/2025 Weight 168 lbs 04/02/2025 BMI 25.54 kg/m2 04/02/2025 Encounters Encounter [facility] Date [facility] [address] [place] [address] 04/02/2025 Finn Egan Essential hypertensi on I10 ; Mixed hyperlipidemia E78.2 ; Acquired hypothyroidism E03.9 ; Benign paroxysmal positional vertigo, bilateral H81.13 ; Postmenopausal osteoporosis M81.0 ; Chronic deep vein thrombosis (DVT) of femoral vein of right lower extremity I82.511 ; Encounter to establish care with new doctor Z76.89 and Laboratory tests ordered as part of a complete physical exam (CPE) Z00.00 ASSESSMENTS Encounter Date Diagnosis Assessment Notes Treatment Notes Treatment Clinical Notes Section Notes 04/02/2025 Essential hypertension (ICD-10 - I10) 04/02/2025 Mixed hyperlipidemia (ICD-10 - E78.2) 04/02/2025 Acquired hypothyroidism (ICD-10 - E03.9) 04/02/2025 Benign paroxysmal positional vertigo, bilateral (ICD-10 - H81.13) 04/02/2025 Postmenopausal osteoporosis (ICD-10 - M81.0) 04/02/2025 Chronic deep vein thrombosis (DVT) of femoral vein of right lower extremity (ICD-10 - I82.511) 04/02/2025 Encounter to establish care with new doctor (ICD-10 - Z76.89) 04/02/2025 Laboratory tests ordered as part of a complete physical exam (CPE) (ICD-10 - Z00.00) 04/02/2025 Other This chart has been transcribed by a computerized dictation system. There are likely to be multiple fur tailor inaccuracies despite chart review. PLAN OF TREATMENT Medication Medication Name Sig Start Date Stop Date Notes Levothyroxine Sodium 125 MCG TAKE 1 TABL ET BY MOUTH EVERY GINA, MONDAY, MONDAY, MONDAY, MONDAY, AND MONDAY. Oral Captopril 25 MG 1 tablet 1 hour befo re or 2 hours after meals Orally 3 times a day Atorvastatin Calcium 20 MG Oral Metoprolol Tartrate 100 MG TAKE ONE TABL ET BY MOUTH TWICE A DAY Oral hydroCHLOROthiazide 25 MG 1 tablet in morning Orally Once a day Eliquis 5 MG TAKE ONE TABLET BY M OUTH EVERY DAY Oral Raloxifene HCl 60 MG TAKE ONE TABLET BY MOUTH EVERY DAY Oral Meclizine HCl 25 MG 1 tablet as needed O rally every 12 hrs Treatment Notes Assessment Notes Other This chart has been transcribed by a computerized dictation system. There are likely to be multiple fur tailor inaccuracies despite chart review. Pending Test Test Name Order Date Ultrasound : Doppler : Veins Leg Right 0 04/02/2025 Uric Acid-[id number] 04/02/2025 Urinalysis, Complete-[id number] 04/02/2025 Vitamin D, 93-Uyrjplg-[id number] 04/02/2025 LP+Non-HDL Cholesterol-632262 04/02/2025 TSH+Free [id number] 04/02/2025 Venous Thrombosis Profile-[id number] 025 Comp. Metabolic Panel [id number] 2024 CBC with Diff, Platelet, [id number] 01/2025 Next Appt Details Follow Up: 2 Weeks, Reason: Follow-up [facility] Dr. Egan Provider Name:Finn ruelas, 04/16/2025 09:45:00 AM, [address] [place] [address], [phone], Progress Notes * Examination Category Sub-Category Detail Notes Category Not es General Examination GENERAL APPEARANCE: in no ac [place] distress, well developed, well nourished HEAD: normocephalic, atrau matic EYES: pupils equal, round, reactive to light and accommodation THROAT: clear, no erythema, uvula midline, no exudate NECK/THYROID: neck supple, no thyr omegaly, trachea midline, no carotid bruit HEART: no murmurs, regular rate and rhythm, S1, S2 normal LUNGS: clear to auscultatio n bilaterally ABDOMEN: soft, nontender, non distended, no organomegaly , bowel sounds present NEUROLOGIC: alert and oriented x 3, nonfocal SKIN: no suspicious lesion s, warm and dry EXTREMITIES: no clubbing, cyanosi s, or edema PERIPHERAL PULSES: normal, 2+ throughou t MUSCULOSKELETAL: normal, full range o f motion LYMPH NODES: no cervical, axillar y, supraclavicular or inguinal adenopathy PSYCH: cognitive function i ntact, mood/affect full range ORAL CAVITY: mucosa moist, no les ions, palate normal, tongue in midline, well papillated History and Physical Notes * HPI (History of Present Illness) Category Sub-Category Detail Notes Category Not es Symptom(s) 74-year-old fem bette patient with history of hypertension, hypothyroidism, osteoporosis, benign positional vertigo, and chronic DVT right lower extremity is here to establish care as a new patient. Patient has brought her lab results which were done about 4 months ago at [facility]. I reviewed the available information during the visit. She tells me that she has been on Eliquis 5 mg by mouth daily for port in 3 years. She never had a workup for DVT but was kept on the medication for over 3 years. She tells me that she has been taking meclizine twice a day or sometimes even more for recurrent benign positional vertigo. Patient appears clinically euthyroid on current dose of levothyroxine. She tells me that on Sundays she's been taking 2 tablets of levothyroxine 125 MCG by mouth daily. I ordered complete labs for her to be done prior to her next visit. Today her systolic blood pressure is high. I checked her blood pressure on both arms and got high systolic readings. She tells me that at home she gets normal blood pressure readings. I advised her to monitor her blood pressure at home and bring her blood pressure instrument for calibration.
--- OUTSIDE RECORDS SUMMARY | 2025-04-02 13:28 | XMS_ITS | Patient Health Record ---
Author Organization [facility] Address [address] [place] [address] Care Team Providers Care Garment Examiner Name Role Phone Finn Egan Primary Care Provider Finn Egan Unavailable Unavailable ALLERGIES Allergen (clinical drug ingredient) Drug/Non Drug Allergy documented on EMR Reaction Allergy Type Onset Date Status morphine Morphine Unknown Drug Allergy Active REASON FOR REFERRAL No Information MEDICATIONS Medication SIG (Take, Route, Frequency, Duration) Notes Start Date End Date Status Levothyroxine Sodium 125 MCG TAKE 1 TABL ET BY MOUTH EVERY MONDAY, MONDAY, MONDAY, MONDAY, MONDAY, AND MONDAY. Oral Active Eliquis 5 MG TAKE ONE TABLET BY MOUTH EVERY DAY Oral Active Raloxifene HCl 60 MG TAKE ONE TABLET BY MOUTH EVERY DAY Oral Active Meclizine HCl 25 MG 1 tablet as needed Orally every 12 hrs Active Captopril 25 MG 1 tablet 1 hour befo re or 2 hours after meals Orally 3 times a day Active Atorvastatin Calcium 20 MG Oral Active Metoprolol Tartrate 100 MG TAKE ONE TABL ET BY MOUTH TWICE A DAY Oral Active hydroCHLOROthiazide 25 MG 1 tablet in morning Orally Once a day Active SOCIAL HISTORY Tobacco Use: Social History [...] W/U Status Risk SNOMED Code Notes Problem Mixed hyperlipidemia (E78.2) Active confirmed 054236712 Problem Essential hypertension (I10) Active confirmed 08029917 Problem Acquired hypothyroidism (E03.9) Active confirmed 846484208 Problem Primary osteoarthritis involving multiple joints (M15.0) Active confirmed 833831267 Problem Chronic deep vein thrombosis (DVT) of femoral vein of right lower extremity (I82.511) Active confirmed 956772237232549 Problem Postmenopausal osteoporosis (M81.0) Active confirmed 304925244 VITAL SIGNS Heart Rate 80 /min 04/02/2025 Blood pressure diastolic 82 mm Hg 04/02/2025 Height 68 in 04/02/2025 Blood pressure systolic 170 mm Hg 04/02/2025 Weight 168 lbs 04/02/2025 BMI 25.54 kg/m2 04/02/2025 Encounters Encounter Location Date Provider Diagnosis [facility], [address] [place] [address] 04/02/2025 Finn Egan Essential hypertensi on I10 [...] Notes Treatment Clinical Notes Section Notes 04/02/2025 Mixed hyperlipidemia (ICD-10 - E78.2) 04/02/2025 Essential hypertension (ICD-10 - I10) 04/02/2025 Acquired hypothyroidism (ICD-10 - E03.9) 04/02/2025 [...] system. There are likely to be multiple bulb planter inaccuracies despite chart review. PLAN OF TREATMENT Pending Test Test Name Order Date Ultrasound : Doppler : Veins Leg Right 0 04/02/2025 Uric Acid-150012 04/02/2025 Urinalysis, Complete-[id number] 04/02/2025 Vitamin D, 24-Hiiwngx-[id number] 04/02/2025 LP+Non-HDL Cholesterol-524820 04/02/2025 TSH+Free [id number] 04/02/2025 Venous Thrombosis Profile-[id number] 025 Comp. Metabolic Panel [id number] 2024 CBC with Diff, Platelet, [id number] 01/2025 Next Appt Details Provider Name:Finn Hayden Arthur ruelas, 04/16/2025 09:45:00 AM, [address] [place] [address], [phone], Insurance Providers Payer Name Payer Address Payer Phone Subscriber Number Group Number Insured Name Patient Relationship to Insured Coverage Start Date Coverage End Date [facility] [id number] [place] [phone] [id number] Sabina Cortez Self - patient is the insured MEDICAL (GENERAL) HISTORY Medical History History ICD Code Essential hypertension I10 Acquired hypothyroidism E03.9 Postmenopausal osteoporosis M81.0 Chronic deep vein thrombosis (DVT) of fe moral vein of right lower extremity I82.511 Primary osteoarthritis involving multipl e joints M15.0 Mixed hyperlipidemia E78.2 Surgical History Surgery Date(Month/Year) Total Right Knee Replacement 2001 Nephrolithiasis Hospitalization History Reason Date(Month/Year) For Above Procedure
== END 2025-04-02 12:56 | disposition home or self-care (01) ==
LOC: HO.HMGCX 12:55
PROVIDERS: PCP Internal Medicine; Visit Provider Internal Medicine
DX: I82.511 Chronic embolism and thrombosis of right femoral vein (principal)
CPT/HCPCS: 93971

== ENCOUNTER → 2025-04-02 13:00 | Outpatient (BNV) | payer MEDICARE, SELFPAY | PROVIDERS: PCP Internal Medicine; Visit Provider Radiology Diagnostic Radiology | DX: I82.531 Chronic embolism and thrombosis of right popliteal vein (principal) | CPT/HCPCS: 93971 ==

== ENCOUNTER 2025-06-10 11:19 | Outpatient (REF) | payer MEDICARE, SELFPAY ==
--- OUTSIDE RECORDS SUMMARY | 2025-04-24 06:23 | XMS_ITS ---
Author Organization [facility]ign[facility] Address [address] [place] [address] Care Team Providers Care Die Repair Machinist Name Role Phone Finn Egan Primary Care Provider Finn Egan Unavailable Unavailable REASON FOR VISIT refills MEDICATIONS Medication SIG (Take, Route, Frequency, Duration) Notes Start Date End Date Status Mzfntsvmwx-YKTR-Fgnuxtnj 50-325-40 MG 1 capsule as needed Orally every 4 hrs for 30 days Active Encounters Encounter Location Date Provider Diagnosis [facility] [address] [address] 04/24/2025 Finn Egan Intractable migraine with aura without status migrainosus G43.119 ASSESSMENTS Encounter Date Diagnosis Assessment Notes Treatment Notes Treatment Clinical Notes Section Notes 04/24/2025 Intractable migraine with aura without status migrainosus (ICD-10 - G43.119) PLAN OF TREATMENT Medication Medication Name Sig Start Date Stop Date Notes Aincztkcpc-PFPQ-Jjckcffp 50-325-40 MG 1 capsule as needed Orally every 4 hrs for 30 days Next Appt Details Provider Name:Georgina Aparicio i, 06/18/2025 11:30:00 AM, [address] [place] [address], [phone],
--- OUTSIDE RECORDS SUMMARY | 2025-05-13 07:15 | XMS_ITS ---
Author Organization Jignesh Quintanilla Address [address] [place] [address] Care Team Providers Care Fabrication Machine Operator Name Role Phone Finn Egan Primary Care Provider [phone] Finn Egan Unavailable Unavailable REASON FOR VISIT (IN OFFICE), Follow Up Encounters Encounter Location Date Provider Diagnosis [facility] [address] [place] [address] 05/13/20 25 Finn Egan PLAN OF TREATMENT Next Appt Details Provider Name:Georgina Aparicio i, 06/18/2025 11:30:00 AM, [address] [place], [address],
--- OUTSIDE RECORDS SUMMARY | 2025-05-16 11:18 | XMS_ITS ---
Author Organization Jignesh Quintanilla Address [address] [place] [address] Care Team Providers Care Heat Treater Apprentice Name Role Phone Finn Egan Primary Care Provider Finn Egan Unavailable Unavailable REASON FOR VISIT Message MEDICATIONS Medication SIG (Take, Route, Frequency, Duration) Notes Start Date End Date Status Eliquis 5 MG 1 tablet Orally Twice a day for 30 days Active Encounters Encounter Location Date Provider Diagnosis [facility] [address] 05/16/2025 Finn Egan Chronic deep vein thrombosis (DVT) of femoral vein of right lower extremity I82.511 ASSESSMENTS Encounter Date Diagnosis Assessment Notes Treatment Notes Treatment Clinical Notes Section Notes 05/16/2025 Chronic deep vein thrombosis (DVT) of femoral vein of right lower extremity (ICD-10 - I82.511) PLAN OF TREATMENT Medication Medication Name Sig Start Date Stop Date Notes Eliquis 5 MG 1 tablet Orally Twice a day for 30 days Next Appt Details Provider Name:Georgina Aparicio i, 06/18/2025 11:30:00 AM, [address] [place] [address], [phone],
--- OUTSIDE RECORDS SUMMARY | 2025-05-27 10:30 | XMS_ITS ---
Author Organization Jignesh Quintanilla Address [address] [place] [phone] Care Team Providers Care Bag End Sewer Name Role Phone Finn Egan Primary Care Provider [phone] Finn Egan Unavailable Unavailable ALLERGIES Allergen (clinical drug ingredient) Drug/Non Drug Allergy documented on EMR Reaction Allergy Type Onset Date Status morphine Morphine Unknown Drug Allergy Active REASON FOR VISIT (IN OFFICE), Sick Visit MEDICATIONS Medication SIG (Take, Route, Frequency, Duration) Notes Start Date End Date Status Allopurinol 100 MG 2 tablet Orally Once a day for 30 day(s) 05/27/2025 Active hydroCHLOROthiazide 25 MG 1 tablet in th morning Orally Once a day Active Eliquis 5 MG 1 tablet Orally e a day for 30 days Active Metoprolol Tartrate 100 MG TAKE ONE TABL ET BY MOUTH TWICE A DAY Oral Active Usmjsvtjxh-FXZV-Ntwgmrfr 50-325-40 MG 1 capsule as needed Orally every 4 hrs for 30 days Active Levothyroxine Sodium 125 MCG TAKE 1 TABL ET BY MOUTH EVERY MONDAY, MONDAY, MONDAY, MONDAY, MONDAY, AND MONDAY. Oral Active Raloxifene HCl 60 MG TAKE ONE TABLET BY MOUTH EVERY DAY Oral Active PredniSONE Taper * 20 MG 3 tablets for 3 days, then 2 tablets for 3 days, then 1 tablet for 5 days Orally daily for 11 days 05/27/2025 Active Captopril 25 MG 1 tablet 1 hour before or 2 hours after meals Orally 3 times a day Active Meclizine HCl 25 MG 1 tablet as needed Orally every 12 hrs Active Atorvastatin Calcium 20 MG Oral Active SOCIAL HISTORY Tobacco Use: Social History Observation Description Date Details (start date - stop date) Never Smoker NA - NA Sex Assigned At : Social History Observation Description Sex Assigned At Unknown Tobacco Use/Smoking Question Answer Notes Are you a nonsmoker PROBLEMS Problem Type ICD Code Onset Dates Problem Status W/U Status Risk SNOMED Code Notes Problem Acute idiopathic gout of right foot (M10.071) Active confirmed 67390376 VITAL SIGNS Blood pressure systolic 112 mm Hg 05/27/20 25 Blood pressure diastolic 74 mm Hg 025 Heart Rate 80 /min 05/27/2025 Height 68 in 05/27/2025 Weight 172.2 lbs 05/27/2025 BMI 26.18 kg/m2 05/27/2025 Encounters Encounter Location Date Provider Diagnosis [facility], [address] [place] [address] 05/27/2025 Finn Egan Acute idiopathic gou t of right foot M10.071 and Right foot pain M79.671 ASSESSMENTS Encounter Date Diagnosis Assessment Notes Treatment Notes Treatment Clinical Notes Section Notes 05/27/2025 Acute idiopathic gout of right foot (ICD-10 - M10.071) 05/27/2025 Right foot pain (ICD-10 - M79.671) 05/27/2025 Other This chart has been transcribed by a computerized dictation system. There are likely to be multiple corn press operator inaccuracies despite chart review. PLAN OF TREATMENT Medication Medication Name Sig Start Date Stop Date Notes Allopurinol 100 MG 2 tablet Orally Once a day for 30 day(s) 05/27/2025 PredniSONE Taper * 20 MG 3 tablets for 3 days, then 2 tablets for 3 days, then 1 tablet for 5 days Orally daily for 11 days 05/27/2025 Treatment Notes Assessment Notes Other This chart has been transcribed by a computerized dictation system. There are likely to be multiple corn press operator inaccuracies despite chart review. Next Appt Details Follow Up: as scheduled, Essence son: Provider Name:Georgina Aparicio i, 06/18/2025 11:30:00 AM, [address] [place], [phone], Progress Notes * Examination Category Sub-Category Detail Notes Category Not es General Examination GENERAL APPEARANCE: in no ac [place] distress, well developed, well nourished EYES: no pallor, sclera no n-icteric NECK/THYROID: neck supple, full ra nge of motion, no cervical lymphadenopathy HEART: RRR, no MRGs LUNGS: clear to auscultatio n bilaterally, normal respiratory effort SKIN: no suspicious lesion s, warm and dry LYMPH NODES: no palpable adenopat hy PSYCH: cognitive function i ntact, mood/affect full range ORAL CAVITY: mucosa moist PODIATRIC: right foot painful t o touch, edematous with area of erythema on top History and Physical Notes * HPI (History of Present Illness) Category Sub-Category Detail Notes Category Not es Symptom(s) 75-year-old fem bette patient with history of hypertension, hypothyroidism, osteoporosis, benign positional vertigo, migraine headache, and chronic DVT right lower extremity is here complaining of painful, edematous right foot. Patient has an area of erythema on the top of her foot. Patient had lab work done recently which shows a high uric acid level. I started patient on prednisone taper for a gout flare up and allopurinol 100 mg daily. I advised her to start with 100 mg daily for the first week and if needed she can increase it to 200 mg daily. Patient's other chronic conditions are well controlled on current medications.
--- OUTSIDE RECORDS SUMMARY | 2025-05-27 11:40 | XMS_ITS ---
Author Organization Jignesh Quintanilla Address [address] [place] [phone] Care Team Providers Care Air Value Tester Name Role Phone Finn Egan Primary Care Provider Finn Egan Unavailable Unavailable REASON FOR VISIT Refills MEDICATIONS Medication SIG (Take, Route, Fr equency, Duration) Notes Start Date End Date Status Raloxifene HCl 60 MG 1 tablet Orally Onc e a day for 90 Days Active Encounters Encounter Location Date Provider Diagnosis [facility] Quintanilla [address] [address] 05/27/2025 Finn Egan Postmenopausal osteoporosis M81.0 ASSESSMENTS Encounter Date Diagnosis Assessment Notes Treatment Notes Treatment Clinical Notes Section Notes 05/27/2025 Postmenopausal osteoporosis (ICD-10 - M81.0) PLAN OF TREATMENT Medication Medication Name Sig Start Date Stop Date Notes Raloxifene HCl 60 MG 1 tablet Orally Onc e a day for 90 Days Next Appt Details Provider Name:Georgina Aparicio i, 06/18/2025 11:30:00 AM, [address] [place] [address], [phone],
--- NOTE | ~2025-06-10 | MM_ITS ---
EXAMINATION: DXA BONE DENSITY AXIAL HISTORY: OSTEOPOROSIS TECHNIQUE: [employer] Dual energy absorptiometry (DEXA) of the lumbar spine, total left hip, and femoral neck was performed. COMPARISON: Comparison is made with the prior examination dated 06/06/2023. FINDINGS: The bone mineral density of the lumbar spine is 1.499 g/cm2, corresponding to a T-score of 2.7, and a Z-score of 4.2. This is indicative of normal bone mineral density. This represents a BMD change of 8.5% compared to the prior exam. This is statistically significant. The bone mineral density of the left total hip is 0.960 g/cm2, corresponding to a T-score of -0.4, and a Z-score of 1.2. This is indicative of normal bone mineral density. This represents a BMD change of 0.8% compared to the prior exam. This is not statistically significant. The bone mineral density of the left femoral neck is 1.017 g/cm2, corresponding to a T-score of -0.2, and a Z-score of 1.6. This is indicative of normal bone mineral density. This represents a BMD change of 3.8% compared to the prior exam. MM/XR DEXA axial skeleton IMPRESSION: Based on bone mineral density, and according to World Health Organization (WHO) criteria, the diagnosis is consistent with normal bone mineral density. Statistically, 68% of repeat scans fall within 1 SD (+/- 0.010 g/cm2 for AP spine L1-L4) and 1 SD (+/- 0.012 g/cm2 for femur total) FRAX is a trademark of the [employer] [place] [facility] Metabolic Bone Disease, a World Health Organization (WHO) Collaborating Center. Electronically signed by: Tapan Olvera MD 06/10/2025 01:40 PM EDT
--- OUTSIDE RECORDS SUMMARY | 2025-06-10 13:45 | XMS_ITS | Patient Health Record ---
Author Organization [id number], Address [address] [place] [address] Care Team Providers Care Hospice Volunteer Coordinator Name Role Phone Finn Egan Primary Care Provider [phone] Finn Egan Unavailable Unavailable ALLERGIES Allergen (clinical drug ingredient) Drug/Non Drug Allergy documented on EMR Reaction Allergy Type Onset Date Status morphine Morphine Unknown Drug Allergy Active RESULTS Component Value Reference Range Notes Uric Acid-[id number] Reviewed date:04/22/2025 06:45:56 PM Interpretation: Performing Lab:[facility], [address] [place] [address], Phone - [phone], Director - MDJodry Notes/Report: Uric Acid 8.6 3.1-7.9 mg/dL Therapeutic ta rget for gout patients: <6.0 Urinalysis, Complete-[id number] Reviewed date:04/22/2025 06:45:56 PM Interpretation: Performing Lab:[facility], [address] [place] [address], Phone - [phone], Director - MDJodry Notes/Report: Specific [place] 1.016 1.005-1.030 pH 5.5 5.0-7.5 Urine-Color Yellow Yellow Appearance Clear Clear WBC Esterase 1+ Negative Protein Trace Negative/Trace Glucose Negative Negative Ketones Negative Negative Occult Blood Negative Negative Bilirubin Negative Negative Urobilinogen,Semi-Qn 0.2 0.2-1.0 mg/dL Nitrite, Urine Negative Negative Microscopic Examination See below: Micr oscopic was indicated and was performed. Microscopic Examination WBC 0-5 0 - 5 /hpf RBC 0-2 0 - 2 /hpf Epithelial Cells (non renal) 0-10 0 - 10 /hpf Epithelial Cells (renal) Casts None seen None seen /lpf Cast Type Crystals Crystal Type Mucus Threads Bacteria None seen None seen/Few Yeast Trichomonas Comment Vitamin D, 41-Lpazrco-[id number] Reviewed date:04/22/2025 06:45:56 PM Interpretation: Performing Lab:[facility], Phone - [phone], Director - Juvenal Notes/Report: Vitamin D, 25-Hydroxy 44.0 30.0-100.0 ng/mL Vitamin D deficiency has been defined by the [place] of [employer] and an Endocrine Society practice guideline as a level of serum 25-OH vitamin D less than 20 ng/mL (1,2). The Endocrine Society went on to further define vitamin D insufficiency as a level between 21 and 29 ng/mL (2). 1. IOM ([place] of Medicine). 2010. Dietary reference intakes for calcium and D. [place]: The National Academies Press. 2. Anne MF, Love VELAZQUEZ, Pb NDIAYE, et al. Evaluation, treatment, and prevention of vitamin D deficiency: an Endocrine Society clinical practice guideline. JCEM. 2010; 96(7):1911-30. LP+Non-HDL Cholesterol-35899 5 Reviewed date:04/22/2025 06:45:56 PM Interpretation: Performing Lab:[facility] [place], [facility], Phone - [phone], Director - Juvenal Notes/Report: Cholesterol, Total 180 100-199 mg/dL Triglycerides 236 0-149 mg/dL HDL Cholesterol 50 >39 mg/dL VLDL Cholesterol Bill 40 5-40 mg/dL LDL Chol Calc (NIH) 90 0-99 mg/dL LDL Calc Comment: Non-HDL Cholesterol 130 0-129 mg/dL TSH+Free [id number] Reviewed date:04/22/2025 06:45:56 PM Interpretation: Performing Lab:[facility], [place], Phone - [phone], Director - Juvenal Notes/Report: TSH 5.320 0.450-4.500 uIU/mL T4,Free(Direct) 1.10 0.82-1.77 ng/dL Venous Thrombosis Profile-50 1790 Reviewed date:04/22/2025 06:45:56 PM Interpretation: Performing Lab:[facility], Phone - [phone], Director - Juvenal Notes/Report: Homocysteine 12.7 Homocysteine levels in patients >60 years increase 1-2 umol/L. Reference Range: 5.0 - 15.0 Factor VIII Activity 200 FVIII activity can increase in a variety of clinical situations including normal , in samples drawn from patients (particularly children) who are visibly stressed at the time of phlebotomy, as acute phase reactants, or in response to certain drug therapies such as DDAVP. Persistently elevated FVIII activity is a risk factor for venous thrombosis as well as recurrence of venous thrombosis. Risk is graded and increases with the degree of elevation. Although elevated FVIII activity has been identified to cluster within families, a genetic basis for the elevation has not yet been elucidated (Br J Haematol. 2012; 157:653-663). Reference Range: 57 - 163 Antithrombin Activity, Plasma 104 Direct oral anticoagulants such as rivaroxaban, apixaban and edoxaban will lead to spuriously elevated antithrombin activity levels possibly masking a deficiency. Reference Range: 7 months and older: 75 - 135 Prt C Activity (Chromogenic) 126 Reference Range: 17 years and older: 73 - 180 Protein S Antigen, Free 149 Reference Range: 7 months and older: 57 - 157 This test was developed and its performance characteristics determined by [facility]. It has not been cleared or approved by the Food and Drug Administration. APTT 24.2 This test has not been validated for monitoring unfractionated heparin therapy. aPTT-based therapeutic ranges for unfractionated heparin therapy have not been established. Consider ordering Heparin anti-Xa (unfractionated). Reference Range: 18 years and older: 22.9 - 30.2 APTT 1:1 ENTRY ANALYST TNP Testing Not Indicated This test was developed and its performance characteristics determined by [facility]. It has not been cleared or approved by the US Food and Drug Administration. APTT 1:1 Saline TNP Testing Not Indicated This test was developed and its performance characteristics determined by [facility]. It has not been cleared or approved by the [place] Food and Drug Administration. LAC Interpretation A lupus anticoagulant is not detected. All antiphospholipid antibodies evaluated are normal. As antibody titers may fluctuate with time, repeat testing may be indicated. Please contact [facility] if further clarification is needed. Act. Prt C Resist w/FV Defic. 2.6 The APCR result may be falsely increased (masking an abnormal, low APCR result) in patients on direct Xa inhibitor (e.g., rivaroxaban, apixaban, edoxaban) or a direct thrombin inhibitor (e.g., dabigatran) anticoagulant therapy due to assay interference by these drugs. Reference Range: 2.2 - 3.5 DRVVT Screen Seconds 51.6 Reference Range: <= 47.0 DRVVT Confirm Seconds 43.3 DRVVT Ratio 1.1 Reference Range: 0.8 - 1.2 Hexagonal Phospholipid Neutral 6 This value is NEGATIVE. This is a qualitative assay and is therefore reported as positive for lupus anticoagulant or negative. The quantitative value is provided as an aid in diagnosis. Reference Range: 0 - 11 Anticardiolipin Ab, IgG <10 Reference Range: Negative: <15 Indeterminate: 15 - 20 Low to medium positive: >20 - 80 High positive: >80 Anticardiolipin Ab, IgM <10 Reference Range: Negative: <13 Indeterminate: 13 - 20 Low to medium positive: >20 - 80 High positive: >80 Beta-2 Glycoprotein I, IgG <10 The reference interval reflects a 3SD or 99th percentile interval. Reference Range: Negative: <21 Beta-2 Glycoprotein I, IgM <10 The reference interval reflects a 3SD or 99th percentile interval. Reference Range: Negative: <33 Beta-2 Glycoprotein I, IgA <10 The reference interval reflects a 3SD or 99th percentile interval. Reference Range: Negative: <26 Factor II Gene Mutation Result G-G (Normal-Normal) No prothrombin [id number] mutation present. Interpretation: While the patient does not possess this risk factor, other thrombotic risk factors may be detected through systematic clinical laboratory analysis. Methodology: Patient DNA was evaluated [place] [id number] using PCR amplification followed by restriction analysis and gel electrophoresis. Comments: Simultaneous Risks: If a patient possesses two or more congenital or acquired thrombophilic risk factors, the risk of thrombosis may rise to more than the sum of the risk ratios for the individual risk factors. For instance, a combination of the prothrombin [id number] mutation and the factor V Leiden mutation may confer an increase in thrombotic risk in the range of 20-30 fold. Recommendations for Genetic Counseling: The prothrombin gene mutation is an inherited characteristic. If the mutation is present, we recommend that the patient and their family consider genetic counseling to obtain additional information on inheritance and to identify other family members at risk. Testing Characteristics: Genetic testing provides exceptionally high sensitivity and specificity. Inaccurate results are limited to rare polymorphisms in primer binding sites and to misidentification of specimens by collectors or laboratory personnel. This assay detects only the prothrombin [id number] mutation and does not detect other genetic abnormalities. This test was developed and its performance characteristics determined by [facility]. It has not been cleared or approved by the Food and Drug Administration. References: Vasile K, et al. Br J of Haem. 1997;98:907. Lindsey AM, et al. Br J of Haem. 1997;98:353. Felipe Vega and Lalo Mol.Diagn. 2001;6(3):201. Sridevi J, et al. Thromb Haemost. 2001;86:809-16. Vijay M, et al. Thromb Haemost. 1999;82:1583. Comp. Metabolic Panel (13)-3 34301 Reviewed date:04/22/2025 06:45:56 PM Interpretation: Performing Lab:[facility], [address] [facility], [place], Phone - [phone], [facility] Notes/Report: Glucose 118 70-99 mg/dL BUN 34 8-27 mg/dL Creatinine 1.40 0.57-1.00 mg/dL eGFR 39 >59 mL/min/1.73 BUN/Creatinine Ratio 24 12-28 Sodium 139 134-144 mmol/L Potassium 4.3 3.5-5.2 mmol/L Chloride 100 96-106 mmol/L Carbon Dioxide, Total 18 20-29 mmol/L Calcium 9.7 8.7-10.3 mg/dL Protein, Total 7.0 6.0-8.5 g/dL Albumin 4.1 3.8-4.8 g/dL Globulin, Total 2.9 1.5-4.5 g/dL Bilirubin, Total 0.3 0.0-1.2 mg/dL Alkaline Phosphatase 77 44-121 IU/L AST (SGOT) 18 0-40 IU/L CBC with Diff, Platelet, NLR -[id number] Reviewed date:04/22/2025 06:45:56 PM Interpretation: Performing Lab:[facility], [address] [facility], [place], Phone - [phone], Director - MDJodry Notes/Report: WBC 8.6 3.4-10.8 x10E3/uL RBC 3.89 3.77-5.28 x10E6/uL Hemoglobin 12.1 11.1-15.9 g/dL Hematocrit 36.9 34.0-46.6 % MCV 95 79-97 fL MCH 31.1 26.6-33.0 pg MCHC 32.8 31.5-35.7 g/dL RDW 12.2 11.7-15.4 % Platelets 247 150-450 x10E3/uL Neutrophils 65 Not Estab. % Lymphs 24 Not Estab. % Monocytes 6 Not Estab. % Eos 3 Not Estab. % Basos 1 Not Estab. % Immature Cells Neutrophils (Absolute) 5.7 1.4-7.0 x10E3/uL Lymphs (Absolute) 2.1 0.7-3.1 x10E3/uL Neut/Lymph Ratio 2.7 0.0-2.9 ratio Published COVID-19 studies suggest: Low likelihood of severe COVID-19 disease progression 0.0-2.9 High likelihood of severe COVID-19 disease progression >4.9 Monocytes(Absolute) 0.5 0.1-0.9 x10E3/uL Eos (Absolute) 0.2 0.0-0.4 x10E3/uL Baso (Absolute) 0.1 0.0-0.2 x10E3/uL Immature Granulocytes 0 Not Estab. % Immature Grans (Abs) 0.0 0.0-0.1 x10E3/uL NRBC Hematology Comments: [facility] Informed Consent Fo Reviewed date:04/15/2025 07:07:19 AM Interpretation: Performing Lab:[facility], [address], [address], [place], Phone - [phone], Director - [facility] Notes/Report: [facility] Informed Consent Form [facility] Informed Consent Form 02 Please Fax back to [phone]. Many states require laboratories to have documentation that the appropriate health care provider has obtained informed consent from patients before the laboratory conducts genetic testing. Informed consent includes the patient understanding the purpose of the test, how the test is performed, the reliability of the test, alternatives to testing, implications of test results, and options on how to instruct the laboratory to store, use or dispose of the sample when testing is complete. [facility] did not receive any documentation of informed consent for above mentioned patient and ordered tests. Please check the statement applicable to this patient and sign below so that [facility] may release the results for this patient. . [] I authorize and confirm patient consent for the above mentioned genetic test(s). . [] I have provided appropriate informed consent for the above mentioned test(s) and documentation of this consent is maintained in the patient record. . . Health care provider signature Da te . Printed name . Fax back to [facility] at [phone] . [facility] REASON FOR REFERRAL No Information MEDICATIONS Medication SIG (Take, Route, Frequency, Duration) Notes Start Date End Date Status Allopurinol 100 MG 2 tablet Orally Once a day for 30 day(s) 05/27/2025 Active Levothyroxine Sodium 125 MCG TAKE 1 TABL ET BY MOUTH EVERY MONDAY, MONDAY, MONDAY, MONDAY, MONDAY, AND MONDAY. Oral Active hydroCHLOROthiazide 25 MG 1 tablet in th e morning Orally Once a day Active Raloxifene HCl 60 MG 1 tablet Orally Onc e a day for 90 Days Active Eliquis 5 MG 1 tablet Orally e a day for 30 days Active Metoprolol Tartrate 100 MG TAKE ONE TABL ET BY MOUTH TWICE A DAY Oral Active Sfmrfbojyg-SUJZ-Xmhnzugs 50-325-40 MG 1 capsule as needed Orally every 4 hrs for 30 days Active PredniSONE Taper * 20 MG 3 [...] Notes Problem Mixed hyperlipidemia (E78.2) Active confirmed [id number] Problem Essential hypertension (I10) Active confirmed [id number] Problem Acquired hypothyroidism (E03.9) Active confirmed 926169150 Problem Primary osteoarthritis involving multiple joints (M15.0) Active confirmed 967570893 Problem Acute idiopathic gout of right foot (M10.071) Active confirmed 46008497 Problem Chronic deep vein thrombosis (DVT) of femoral vein of right lower extremity (I82.511) Active confirmed [id number] Problem Intractable migraine with aura without status migrainosus (G43.119) Active confirmed 849912374 Problem Postmenopausal osteoporosis (M81.0) Active confirmed 196582824 VITAL SIGNS Heart Rate 80 /min 05/27/2025 Blood pressure diastolic 74 mm Hg 05/27/2025 Height 68 in 05/27/2025 Blood pressure systolic 112 mm Hg 05/27/2025 Weight 172.2 lbs 05/27/2025 BMI 26.18 kg/m2 05/27/2025 Encounters Encounter Location Date Provider Diagnosis [address] [address] 04/02/2025 Finn Egan Essential hypertensi on I10 ; Mixed hyperlipidemia E78.2 ; Acquired hypothyroidism E03.9 ; Benign paroxysmal positional vertigo, bilateral H81.13 ; Postmenopausal osteoporosis M81.0 ; Chronic deep vein thrombosis (DVT) of femoral vein of right lower extremity I82.511 ; Encounter to establish care with new doctor Z76.89 and Laboratory tests ordered as part of a complete physical exam (CPE) Z00.[address] [address] 04/11/2025 Finn Egan Acquired hypothyroid ism E03.[address] [address] 04/16/2025 Finn Egan Essential hypertensi on I10 ; Mixed hyperlipidemia E78.2 ; Chronic deep vein thrombosis (DVT) of femoral vein of right lower extremity I82.511 ; Acquired hypothyroidism E03.9 ; Postmenopausal osteoporosis M81.0 ; Benign paroxysmal positional vertigo, bilateral H81.13 and Intractable migraine with aura without status migrainosus G43.[address] [address] 04/24/2025 Finn Egan Intractable migraine with aura without status migrainosus G43.[address] [address] 05/13/2025 Finn Egan [address] [address] 05/16/2025 Finn Egan Chronic deep vein thrombosis (DVT) of femoral vein of right lower extremity I82.[address] [address] 05/27/2025 Finn Egan Acute idiopathic gou t of right foot M10.071 and Right foot pain M79.[address] [address] 05/27/2025 Finn Egan Postmenopausal osteoporosis M81.0 ASSESSMENTS Encounter Date Diagnosis Assessment Notes Treatment Notes Treatment Clinical Notes Section Notes 04/02/2025 Mixed hyperlipidemia (ICD-10 - E78.2) 04/02/2025 Essential hypertension (ICD-10 - I10) 04/11/2025 Acquired hypothyroidism (ICD-10 - E03.9) 04/16/2025 Mixed hyperlipidemia (ICD-10 - E78.2) 04/16/2025 Essential hypertension (ICD-10 - I10) 04/24/2025 Intractable migraine with aura without status migrainosus (ICD-10 - G43.119) 05/16/2025 Chronic deep vein thrombosis (DVT) of femoral vein of right lower extremity (ICD-10 - I82.511) 05/27/2025 Right foot pain (ICD-10 - M79.671) 05/27/2025 Acute idiopathic gout of right foot (ICD-10 - M10.071) 05/27/2025 Postmenopausal osteoporosis (ICD-10 - M81.0) 04/02/2025 Acquired hypothyroidism (ICD-10 - E03.9) 04/16/2025 Chronic deep vein thrombosis (DVT) of femoral vein of right lower extremity (ICD-10 - I82.511) 04/02/2025 Benign paroxysmal positional vertigo, bilateral (ICD-10 - H81.13) 04/16/2025 Acquired hypothyroidism (ICD-10 - E03.9) 04/02/2025 Postmenopausal osteoporosis (ICD-10 - M81.0) 04/16/2025 Postmenopausal osteoporosis (ICD-10 - M81.0) 04/02/2025 Chronic deep vein thrombosis (DVT) of femoral vein of right lower extremity (ICD-10 - I82.511) 04/16/2025 Benign paroxysmal positional vertigo, bilateral (ICD-10 - H81.13) 04/02/2025 Encounter to establish care with new doctor (ICD-10 - Z76.89) 04/16/2025 Intractable migraine with aura without status migrainosus (ICD-10 - G43.119) 04/02/2025 Laboratory tests ordered as part of a complete physical exam (CPE) (ICD-10 - Z00.00) 05/27/2025 Other This chart has been transcribed by a computerized dictation system. There are likely to be multiple oil fire specialist inaccuracies despite chart review. 04/16/2025 Other This chart has been transcribed by a computerized dictation system. There are likely to be multiple oil fire specialist inaccuracies despite chart review. 04/02/2025 Other This chart has been transcribed by a computerized dictation system. There are likely to be multiple oil fire specialist inaccuracies despite chart review. PLAN OF TREATMENT Pending Test Test Name Order Date Bone Density 04/16/2025 Ultrasound : Doppler : Veins Leg Right 0 04/02/2025 Next Appt Details Provider Name:Georgina Aparicio i, 06/18/2025 11:30:00 AM, [address] [place] [address], [phone], Insurance Providers Payer Name Payer Address Payer Phone Subscriber Number Group Number Insured Name Patient Relationship to Insured Coverage Start Date Coverage End Date [facility] [id number] [phone] [id number] Sabina Cortez Self - patient is the [...]
== END 2025-06-10 11:20 | disposition home or self-care (01) ==
LOC: HO.MAMMO 11:19
PROVIDERS: PCP Internal Medicine; Visit Provider Internal Medicine
DX: M81.0 Age-related osteoporosis without current pathological fracture (principal)
CPT/HCPCS: 77080

== ENCOUNTER → 2025-06-10 11:30 | Outpatient (BNV) | payer MEDICARE, SELFPAY | PROVIDERS: PCP Internal Medicine; Visit Provider Radiology Diagnostic Radiology | DX: E28.39 Other primary ovarian failure (principal) | CPT/HCPCS: 77080 ==